=== PATIENT | female | born 1965 | race Two or more races ===

== ENCOUNTER 2017-10-02 18:59 | Emergency (ER) | payer MEDICAID, OTHER ==
[~2017-10-02] VITALS: Ht 154.9 cm; Wt 71.7 kg
[~2017-10-02 18:59] MED LIST: DOCU-94 PO; HYDR-4683 PO; IBUP800T24 PO; LISI-646 PO; METF-489 PO; METO25TA5 PO; NIFE60TA59 PO
[2017-10-02 19:56] LABS: Urine Bacteria NONE SEEN /hpf (None Seen); Urine Blood Negative /uL (Negative); Urine Budding Yeast OCCASIONAL /hpf (None Seen); Urine Mucus FEW (None Seen); Urine Specific Gravity 1.018 (1.001-1.035); Urine WBC 7 /hpf (0 - 5)
[2017-10-02 22:54] LABS: Basophils # (auto) 0.1 uL; Basophils % (auto) 1.4 % (0.0-2.0); Eosinophils # (auto) 0.1 uL; Eosinophils % (auto) 1.8 % (0.0-7.0); Hematocrit 41.6 % (36.0-46.0); Hemoglobin 14.5 g/dL (12.2-16.2); Lymphocytes # (auto) 1.6 uL; Lymphocytes % (auto) 29.3 % (10.0-50.0); Mean Corpuscular Hemoglobin 31.2 pg (28.0-32.0); Mean Corpuscular Hgb Conc. 34.8 g/dL (32.0-36.0); Mean Corpuscular Volume 89.7 fL (80.0-100.0); Monocytes # (auto) 0.5 uL; Monocytes % (auto) 8.7 % (0.0-12.0); Neutrophils # (auto) 3.2 uL; Neutrophils % (auto) 58.8 % (37.0-80.0); Nucleated Red Blood Cells % 0.1 %; Platelet Count (auto) 219 10^3/uL (140-450); Red Blood Cells 4.64 10^6/uL (4.0-5.20); Red Cell Distribution Width 12.5 % (11.8-14.3); White Blood Cell 5.5 10^3/uL (4.4-10.8)
[2017-10-02 23:07] LABS: Albumin 3.2 g/dL (3.4-5.0); Calcium 9.3 mg/dL (8.5-10.1); Potassium 3.8 mmol/L (3.5-5.1)
[2017-10-02 23:09] LABS: BUN/Creatinine Ratio 23.7
[2017-10-02 23:12] LABS: Bilirubin, Total 0.4 mg/dL (0.2-1.0)
[2017-10-02] MEDS ORDERED: SODIUM CHLORIDE 0.9% 1,000 ML IV ONE (23:45)
[2017-10-02] MEDS ORDERED: InsuLIN REG 1unit/0.01ml Soln (100units/ml) IV ONE (23:45)
[2017-10-03 00:50] VITALS: BP 141/78
== END 2017-10-03 00:34 | disposition home or self-care (01) ==
LOC: ER 18:59
DX: E11.65 Type 2 diabetes mellitus with hyperglycemia (principal); R10.32 Left lower quadrant pain; E66.01 Morbid (severe) obesity due to excess calories; K21.9 Gastro-esophageal reflux disease without esophagitis; E78.5 Hyperlipidemia, unspecified; I10 Essential (primary) hypertension; Z90.710 Acquired absence of both cervix and uterus; Z79.84 Long term (current) use of oral hypoglycemic drugs; Z68.29 Body mass index [BMI] 29.0-29.9, adult; Z90.49 Acquired absence of other specified parts of digestive tract
CPT/HCPCS: 36415; 74176; 80053; 81001; 82150; 82962; 83690; 85025; 93005; 96361; 96374; 99285; J1815

== ENCOUNTER 2017-12-15 17:53 | Emergency (ER) | payer MEDICAID, OTHER ==
[~2017-12-15] VITALS: Ht 157.5 cm; Wt 65.8 kg
[2017-12-15 19:11] LABS: Basophils # (auto) 0.1 uL; Basophils % (auto) 0.6 % (0.0-2.0); Eosinophils # (auto) 0 uL; Eosinophils % (auto) 0.5 % (0.0-7.0); Hemoglobin 14.5 g/dL (12.2-16.2); Lymphocytes # (auto) 0.6 uL; Lymphocytes % (auto) 7.4 % (10.0-50.0); Mean Corpuscular Hemoglobin 30.8 pg (28.0-32.0); Mean Corpuscular Hgb Conc. 34.5 g/dL (32.0-36.0); Monocytes # (auto) 0.6 uL; Monocytes % (auto) 7.7 % (0.0-12.0); Neutrophils # (auto) 6.9 uL; Neutrophils % (auto) 83.8 % (37.0-80.0); Nucleated Red Blood Cells % 0.2 %; Platelet Count (auto) 235 10^3/uL (140-450); Red Blood Cells 4.71 10^6/uL (4.0-5.20); White Blood Cell 8.2 10^3/uL (4.4-10.8)
[2017-12-15 19:34] LABS: Urine Bacteria MANY /hpf (None Seen); Urine Blood Negative /uL (Negative); Urine Specific Gravity 1.016 (1.001-1.035); Urine WBC 5 /hpf (0 - 5)
[2017-12-15 19:38] LABS: Alanine Aminotransferase 24 U/L (13-56); Albumin 3.9 g/dL (3.4-5.0); Alkaline Phosphatase 73 U/L (45-117); Anion Gap 11 (5-15); Aspartate Aminotransferase 12 U/L (15-37); BUN/Creatinine Ratio 28.4; Bilirubin, Total 0.5 mg/dL (0.2-1.0); Blood Urea Nitrogen 33 mg/dL (7-18); Calcium 9.5 mg/dL (8.5-10.1); Carbon Dioxide 27 mmol/L (21-32); Chloride 100 mmol/L (98-107); GFR African American 63 mL/min; GFR Non-African American 52 mL/min; Glucose 234 mg/dL (74-106); Magnesium 2.1 mg/dL (1.6-2.6); Potassium 4.4 mmol/L (3.5-5.1); Sodium 138 mmol/L (136-145); Total Protein 8.3 g/dL (6.4-8.2)
[2017-12-16 05:32] VITALS: BP 119/87
== END 2017-12-16 05:52 | disposition home or self-care (01) ==
LOC: ER 17:57
DX: N20.0 Calculus of kidney (principal); E11.9 Type 2 diabetes mellitus without complications; K21.9 Gastro-esophageal reflux disease without esophagitis; E78.5 Hyperlipidemia, unspecified; I10 Essential (primary) hypertension; Z90.710 Acquired absence of both cervix and uterus
CPT/HCPCS: 36415; 74176; 80053; 81001; 83735; 84484; 85025; 93005

== ENCOUNTER 2019-01-09 00:31 | Emergency (ER) | payer MEDICAID ==
[~2019-01-09] VITALS: Ht 157.5 cm; Wt 63.7 kg
[~2019-01-09 00:31] MED LIST changes: -HYDR-4683 PO; +HYDR-4833 PO
[2019-01-09] MEDS ORDERED: cloNIDine HCL 0.1 MG TAB ONE (01:06)
[2019-01-09] MEDS ORDERED: cloNIDine HCL 0.1 MG TAB PO ONE (01:15)
[2019-01-09 02:26] LABS: Basophils # (auto) 0.1 uL; Basophils % (auto) 1.4 % (0.0-2.0); Eosinophils # (auto) 0.1 uL; Eosinophils % (auto) 1.9 % (0.0-7.0); Hemoglobin 15.2 g/dL (12.2-16.2); Lymphocytes # (auto) 1.7 uL; Mean Corpuscular Hemoglobin 30.1 pg (28.0-32.0); Mean Corpuscular Hgb Conc. 34.5 g/dL (32.0-36.0); Mean Corpuscular Volume 87.4 fL (80.0-100.0); Monocytes # (auto) 0.5 uL; Neutrophils # (auto) 2.3 uL; Neutrophils % (auto) 48.7 % (37.0-80.0); Nucleated Red Blood Cells % 0.1 %; Platelet Count (auto) 257 10^3/uL (140-450); Red Blood Cells 5.03 10^6/uL (4.0-5.20); Red Cell Distribution Width 12.7 % (11.8-14.3); White Blood Cell 4.7 10^3/uL (4.4-10.8)
[2019-01-09 02:46] LABS: Albumin 3.2 g/dL (3.4-5.0); Anion Gap 9 (5-15); Blood Urea Nitrogen 22 mg/dL (7-18); Calcium 8.8 mg/dL (8.5-10.1); Carbon Dioxide 28 mmol/L (21-32); Chloride 99 mmol/L (98-107); Glucose 285 mg/dL (74-106); Potassium 3.5 mmol/L (3.5-5.1); Sodium 136 mmol/L (136-145)
[2019-01-09 02:49] LABS: BUN/Creatinine Ratio 25.9; GFR African American 90 mL/min; GFR Non-African American 74 mL/min
[2019-01-09 02:54] LABS: INR < 0.93 (0.9-1.15); Partial Thromboplastin Time 23.1 sec (23.64-32.05)
[2019-01-09 03:02] LABS: Alanine Aminotransferase 25 U/L (13-56); Alkaline Phosphatase 114 U/L (45-117); Aspartate Aminotransferase 11 U/L (15-37); Bilirubin, Total 0.4 mg/dL (0.2-1.0); Total Protein 7.1 g/dL (6.4-8.2)
[2019-01-09] MEDS ORDERED: MORPHINE SULFATE 4 MG/ML SYR/VIAL IV ONE (04:15)
[2019-01-09] MEDS ORDERED: ONDANSETRON HCL 4 MG/2 ML VIAL IV ONE (04:15)
[2019-01-09 06:27] VITALS: BP 133/86
== END 2019-01-09 07:18 | disposition home or self-care (01) ==
LOC: ER 00:33
DX: S39.012A Strain of muscle, fascia and tendon of lower back, initial encounter (principal); M54.42 Lumbago with sciatica, left side; E11.9 Type 2 diabetes mellitus without complications; K21.9 Gastro-esophageal reflux disease without esophagitis; E78.5 Hyperlipidemia, unspecified; I10 Essential (primary) hypertension; Z90.49 Acquired absence of other specified parts of digestive tract; Z90.710 Acquired absence of both cervix and uterus; Z79.899 Other long term (current) drug therapy; Z79.84 Long term (current) use of oral hypoglycemic drugs; X58.XXXA Exposure to other specified factors, initial encounter; Y93.89 Activity, other specified; Y99.8 Other external cause status; Y92.89 Other specified places as the place of occurrence of the external cause
CPT/HCPCS: 36415; 70450; 72131; 80053; 83880; 84484; 85025; 85610; 85730; 93005; 96374; 96375; 99284; J2270; J2405

== ENCOUNTER 2019-09-15 13:02 | Inpatient (IN) | payer MEDICAID ==
[~2019-09-15] VITALS: Ht 154.9 cm; Wt 67.4 kg
[~2019-09-15 13:02] MED LIST changes: +NIFE1TAB30 PO; -NIFE60TA59 PO
[2019-09-15] MEDS ORDERED: SODIUM CHLORIDE 0.9% 1,000 ML IV ONE (13:43)
[2019-09-15] MEDS ORDERED: InsuLIN REG 1unit/0.01ml Soln (100units/ml) IV ONE (13:45)
[2019-09-15 14:14] LABS: Basophils # (auto) 0.1 10 ^3/uL (0-0.2); Basophils % (auto) 1.3 % (0.0-2.0); Eosinophils # (auto) 0.1 10 ^3/uL (0-0.8); Eosinophils % (auto) 1.3 % (0.0-7.0); Hematocrit 44.8 % (36.0-46.0); Hemoglobin 15.2 g/dL (12.2-16.2); Lymphocytes # (auto) 1.3 10 ^3/uL (0.4-5.4); Lymphocytes % (auto) 23.2 % (10.0-50.0); Mean Corpuscular Hemoglobin 29.9 pg (28.0-32.0); Mean Corpuscular Volume 87.9 fL (80.0-100.0); Monocytes # (auto) 0.4 10 ^3/uL (0-1.3); Monocytes % (auto) 6.3 % (0.0-12.0); Neutrophils # (auto) 3.8 10 ^3/uL (1.6-8.6); Neutrophils % (auto) 67.9 % (37.0-80.0); Nucleated Red Blood Cells % 0.2 %; Platelet Count (auto) 234 10^3/uL (140-450); Red Blood Cells 5.09 10^6/uL (4.0-5.20); Red Cell Distribution Width 12.4 % (11.8-14.3); White Blood Cell 5.6 10^3/uL (4.4-10.8)
[2019-09-15 14:37] LABS: Albumin 2.9 g/dL (3.4-5.0); Calcium 8.7 mg/dL (8.5-10.1); Potassium 4.1 mmol/L (3.5-5.1)
[2019-09-15 14:42] LABS: BUN/Creatinine Ratio 22.5; Bilirubin, Total 0.4 mg/dL (0.2-1.0); Total Protein 7.2 g/dL (6.4-8.2)
[2019-09-15] MEDS ORDERED: NITROGLYCERIN 0.4 MG SL TAB SL PRN (16:00)
[2019-09-15] MEDS ORDERED: DEXTROSE (50%) 50ML SYRG IV PRN (16:00)
[2019-09-15] MEDS ORDERED: MORPHINE SULF INJ 2 MG/ML SYRINGE 1ML IV PRN ×2 (16:00)
[2019-09-15] MEDS ORDERED: ONDANSETRON HCL 4 MG/2 ML VIAL IV PRN (16:00)
[2019-09-15] MEDS ORDERED: INSULIN LANTUS (GLARGINE) 1 /0.01ml (100units/ml) SC ONE (16:00)
[2019-09-15] MEDS ORDERED: LISINOPRIL 20 MG TAB PO ONE (16:00)
[2019-09-15] MEDS ORDERED: HCTZ 25 MG TAB PO ONE (16:45)
[2019-09-15] MEDS: ACCU-CHEK COMFORT CURVE STRIP VI SCH ×2 (17:10→22:08)
[2019-09-15] MEDS: InsuLIN REG 1unit/0.01ml Soln (100units/ml) SC SCH ×2 (17:10→22:16)
[2019-09-15 17:45] VITALS: BP 155/89
[2019-09-15] MEDS ORDERED: NIFEdipine ER 30 MG TAB PO ONE (19:00)
--- NOTE | 2019-09-15 19:30 | NUR ---
received report from praveen rn poc reviewed, received attenuator from family member given to pt
[2019-09-15 21:30] VITALS: BP 153/82
[2019-09-16] MEDS: INSULIN LANTUS (GLARGINE) 1 /0.01ml (100units/ml) SC SCH ×2 (00:28→22:09)
--- NOTE | 2019-09-16 01:26 | NUR ---
RESTING COMFORTABLE, CALL LIGHT WITHIN REACH
[2019-09-16 05:00] VITALS: BP 135/72
[2019-09-16] MEDS: ACCU-CHEK COMFORT CURVE STRIP VI SCH ×4 (05:17→22:09)
[2019-09-16 05:43] LABS: Basophils # (auto) 0 10 ^3/uL (0-0.2); Basophils % (auto) 0.7 % (0.0-2.0); Eosinophils # (auto) 0.1 10 ^3/uL (0-0.8); Eosinophils % (auto) 2.4 % (0.0-7.0); Hematocrit 43.3 % (36.0-46.0); Hemoglobin 14.7 g/dL (12.2-16.2); Lymphocytes # (auto) 1.6 10 ^3/uL (0.4-5.4); Lymphocytes % (auto) 29.5 % (10.0-50.0); Mean Corpuscular Hgb Conc. 34.1 g/dL (32.0-36.0); Mean Corpuscular Volume 88.1 fL (80.0-100.0); Monocytes # (auto) 0.5 10 ^3/uL (0-1.3); Monocytes % (auto) 9.5 % (0.0-12.0); Neutrophils # (auto) 3.1 10 ^3/uL (1.6-8.6); Neutrophils % (auto) 57.9 % (37.0-80.0); Nucleated Red Blood Cells % 0.4 %; Platelet Count (auto) 213 10^3/uL (140-450); Red Blood Cells 4.91 10^6/uL (4.0-5.20); Red Cell Distribution Width 12.7 % (11.8-14.3); White Blood Cell 5.4 10^3/uL (4.4-10.8)
[2019-09-16 05:54] LABS: Albumin 2.8 g/dL (3.4-5.0); Calcium 9.1 mg/dL (8.5-10.1); Potassium 3.6 mmol/L (3.5-5.1)
[2019-09-16 06:00] LABS: BUN/Creatinine Ratio 32.2; Bilirubin, Total 0.3 mg/dL (0.2-1.0); Total Protein 6.6 g/dL (6.4-8.2)
[2019-09-16] MEDS: InsuLIN REG 1unit/0.01ml Soln (100units/ml) SC SCH ×4 (06:04→22:10)
--- NOTE | 2019-09-16 06:51 | NUR ---
report given to am nurse poc reviewed
--- NOTE | 2019-09-16 08:10 | NUR ---
OPENING SHIFT NOTE: PATIENT RESTING IN BED EATING BREAKFAST. RESPIRATIONS EVEN AND UNLABORED. PATIENT UPDATED ON PLAN OF CARE. CALL LIGHT WITHIN REACH, FALL PRECAUTIONS IN PLACE. WILL CONTINUE TO MONITOR.
[2019-09-16 08:38] VITALS: BP 124/58
[2019-09-16] MEDS ORDERED: hydrALAZINE HCL 20 MG/ML VL IV PRN (10:00)
[2019-09-16] MEDS ORDERED: LISINOPRIL 20 MG TAB PO SCH (10:00)
[2019-09-16] MEDS: LISINOPRIL 20 MG TAB PO SCH (10:17)
[2019-09-16] MEDS: NIFEdipine ER 30 MG TAB PO SCH (10:19)
[2019-09-16] MEDS: HCTZ 25 MG TAB PO SCH (10:19)
[2019-09-16 13:20] VITALS: BP 134/81
[2019-09-16 16:31] VITALS: BP 132/75
--- NOTE | 2019-09-16 18:55 | NUR ---
MD MEERA MONTEZ.
--- NOTE | 2019-09-16 19:14 | NUR ---
CARE ENDORSED TO BRENDA PEPE.
[2019-09-16 22:00] VITALS: BP 133/79
[2019-09-16] MEDS ORDERED: ACETAMINOPHEN 500 MG TAB PO PRN (22:00)
[2019-09-17 05:00] VITALS: BP 130/79
[2019-09-17 06:01] LABS: Basophils # (auto) 0.1 10 ^3/uL (0-0.2); Basophils % (auto) 1.1 % (0.0-2.0); Eosinophils # (auto) 0.1 10 ^3/uL (0-0.8); Eosinophils % (auto) 2.1 % (0.0-7.0); Hematocrit 47.5 % (36.0-46.0); Hemoglobin 16.3 g/dL (12.2-16.2); Lymphocytes # (auto) 2.4 10 ^3/uL (0.4-5.4); Lymphocytes % (auto) 38.1 % (10.0-50.0); Mean Corpuscular Hemoglobin 30.4 pg (28.0-32.0); Mean Corpuscular Hgb Conc. 34.2 g/dL (32.0-36.0); Mean Corpuscular Volume 88.7 fL (80.0-100.0); Monocytes # (auto) 0.4 10 ^3/uL (0-1.3); Monocytes % (auto) 7.1 % (0.0-12.0); Neutrophils # (auto) 3.3 10 ^3/uL (1.6-8.6); Neutrophils % (auto) 51.6 % (37.0-80.0); Nucleated Red Blood Cells % 0.6 %; Platelet Count (auto) 264 10^3/uL (140-450); Red Blood Cells 5.36 10^6/uL (4.0-5.20); Red Cell Distribution Width 12.6 % (11.8-14.3); White Blood Cell 6.3 10^3/uL (4.4-10.8)
[2019-09-17 06:29] LABS: Potassium 3.7 mmol/L (3.5-5.1)
[2019-09-17 06:40] LABS: Albumin 3.1 g/dL (3.4-5.0); BUN/Creatinine Ratio 32.7; Bilirubin, Total 0.3 mg/dL (0.2-1.0); Calcium 9.5 mg/dL (8.5-10.1); Total Protein 7.5 g/dL (6.4-8.2)
[2019-09-17] MEDS: InsuLIN REG 1unit/0.01ml Soln (100units/ml) SC SCH ×4 (06:57→21:39)
[2019-09-17] MEDS: ACCU-CHEK COMFORT CURVE STRIP VI SCH ×4 (07:03→21:38)
--- NOTE | 2019-09-17 07:25 | NUR ---
opening shift note Assumed care of patient from NOC AFSHIN Ybarra. Patient is AOX4, no s/s of distress or sob noted. Bed is in lowest locked position, side rails up x2, and call light within reach. Updated patient on plan of care, patient verbalized understanding. I will continue to monitor Q1HR and PRN.
[2019-09-17 08:48] VITALS: BP 151/84
[2019-09-17] MEDS: HCTZ 25 MG TAB PO SCH (11:22)
[2019-09-17] MEDS: NIFEdipine ER 30 MG TAB PO SCH (11:23)
[2019-09-17] MEDS: LISINOPRIL 20 MG TAB PO SCH (11:23)
[2019-09-17 12:30] VITALS: BP 159/96
[2019-09-17 16:41] VITALS: BP 132/78
[2019-09-17] MEDS ORDERED: NIFEdipine ER 30 MG TAB PO ONE (17:00)
--- NOTE | 2019-09-17 19:15 | NUR ---
End of shift note Endorsed care to NOC AFSHIN Cordero. No s/s of distress noted at this time.
--- NOTE | 2019-09-17 19:30 | NUR ---
Opening Shift Note Assumed care of patient, awake and alert, latvian speaking but can understand a little Slovak. No S/S of distress/SOB or pain. Instructed on POC and to call for assist PRN, patient verbalized understanding. Safety precaution in place, call light within reach, will continue to monitor for changes Q1hr and PRN.
[2019-09-17] MEDS: INSULIN LANTUS (GLARGINE) 1 /0.01ml (100units/ml) SC SCH (21:39)
[2019-09-17 22:00] VITALS: BP 135/88
--- NOTE | 2019-09-18 01:05 | NUR ---
ROUNDING Patient sleeping at this time, respirations even and unlabored, will continue to monitor
[2019-09-18 05:00] VITALS: BP 108/74
[2019-09-18 05:25] LABS: Basophils # (auto) 0.1 10 ^3/uL (0-0.2); Basophils % (auto) 1.2 % (0.0-2.0); Eosinophils # (auto) 0.1 10 ^3/uL (0-0.8); Eosinophils % (auto) 2.4 % (0.0-7.0); Hemoglobin 15.6 g/dL (12.2-16.2); Lymphocytes # (auto) 2.3 10 ^3/uL (0.4-5.4); Lymphocytes % (auto) 40.9 % (10.0-50.0); Mean Corpuscular Hemoglobin 29.9 pg (28.0-32.0); Mean Corpuscular Volume 87.9 fL (80.0-100.0); Monocytes # (auto) 0.5 10 ^3/uL (0-1.3); Monocytes % (auto) 9.3 % (0.0-12.0); Neutrophils # (auto) 2.6 10 ^3/uL (1.6-8.6); Neutrophils % (auto) 46.2 % (37.0-80.0); Nucleated Red Blood Cells % 0.1 %; Platelet Count (auto) 229 10^3/uL (140-450); Red Blood Cells 5.23 10^6/uL (4.0-5.20); Red Cell Distribution Width 12.8 % (11.8-14.3); White Blood Cell 5.6 10^3/uL (4.4-10.8)
[2019-09-18 05:41] LABS: Albumin 2.8 g/dL (3.4-5.0); Calcium 8.8 mg/dL (8.5-10.1); Potassium 3.9 mmol/L (3.5-5.1)
[2019-09-18 05:46] LABS: BUN/Creatinine Ratio 35.5; Bilirubin, Total 0.4 mg/dL (0.2-1.0); Total Protein 6.8 g/dL (6.4-8.2)
[2019-09-18] MEDS: ACCU-CHEK COMFORT CURVE STRIP VI SCH ×3 (06:16→17:00)
[2019-09-18] MEDS: InsuLIN REG 1unit/0.01ml Soln (100units/ml) SC SCH ×3 (06:16→17:00)
--- NOTE | 2019-09-18 07:46 | NUR ---
Opening Shift Note Assumed care of patient, awake and alert. No S/S of distress/SOB or pain. Instructed on POC and to call for assist PRN. Bed at lowest locked position and call light within reach. Will continue to monitor for changes Q1hr and PRN.
[2019-09-18 08:00] VITALS: BP 117/71
[2019-09-18 09:00] VITALS: BP 117/71
[2019-09-18] MEDS ORDERED: NIFEdipine ER 30 MG TAB PO SCH (10:00)
[2019-09-18] MEDS: HCTZ 25 MG TAB PO SCH (12:22)
[2019-09-18] MEDS: LISINOPRIL 20 MG TAB PO SCH (12:23)
--- NOTE | 2019-09-18 12:41 | NUR ---
DR. TINSLEY, AT BEDSIDE. Addendum: 09/18/19 at 1244 by Oumou Rivera RN PER DR. TINSLEY, PATIENT CLEARED FROM CARDIOLOGY'S PERSPECTIVE. PATIENT TO CONTINUE BLOOD PRESSURE MEDICATIONS FROM HOSPITAL .
[2019-09-18 13:00] VITALS: BP 138/85
--- NOTE | 2019-09-18 13:12 | NUR ---
JAMES ELIAS REGARDING DISCHARGE ORDERS. AWAITING CALL BACK. Addendum: 09/18/19 at 1345 by Oumou Rivera RN MD. Boss, called back. will be in later.
[2019-09-18 16:49] VITALS: BP 124/81
--- NOTE | 2019-09-18 18:45 | NUR ---
MD ROUNDS Dr. Boss at bedside. Per MD patient will be discharged today.
[2019-09-18 19:12] VITALS: BP 124/81
--- NOTE | 2019-09-18 19:19 | NUR ---
IV removal Patient requesting iv to be discontinued. IV DC'd with clean sterile technique, catheter fully intact. Pressure dressing applied to site. Patient tolerated well.
--- NOTE | 2019-09-18 19:19 | NUR ---
Tele box collected and returned tele monitor room.
--- NOTE | 2019-09-18 19:20 | NUR ---
closing note Patient is comfortably resting in bed, no s/s of distress/sob noted/stated. Bed at lowest locked position and call light within reach. care endorsed to NOC AFSHIN De La Cruz.
--- NOTE | 2019-09-18 20:35 | NUR ---
Discharge instructions given as ordered. Encourage to follow up with PMD as instructed. All questions and concerns addressed. Patient verbalized understanding. Medication reconciliation form completed and copy given to patient. Home medications held in Pharmacy returned to patient, and needed vaccines given. IV removed with catheter intact, pressure dressing applied. Telemetry unit returned to ICU. Patient taken to vehicle via wheelchair with all personal belongings, accompanied by staff. No distress noted at time of departure.
== END 2019-09-18 20:30 | disposition home or self-care (01) | DRG 199 ==
LOC: ER 13:02 → TELE 13:03 → TELE-WESTW 17:49
PROVIDERS: ADMIT Internal Medicine; ATTEND Internal Medicine
DX: I16.9 Hypertensive crisis, unspecified (principal); E11.65 Type 2 diabetes mellitus with hyperglycemia; I15.8 Other secondary hypertension; E78.5 Hyperlipidemia, unspecified; K21.9 Gastro-esophageal reflux disease without esophagitis; I10 Essential (primary) hypertension; Z83.3 Family history of diabetes mellitus; Z90.710 Acquired absence of both cervix and uterus; Z91.19 Patient's noncompliance with other medical treatment and regimen; Z82.49 Family history of ischemic heart disease and other diseases of the circulatory system; Z80.9 Family history of malignant neoplasm, unspecified; Z90.49 Acquired absence of other specified parts of digestive tract; I16.1 Hypertensive emergency; T50.2X6A Underdosing of carbonic-anhydrase inhibitors, benzothiadiazides and other diuretics, initial encounter; T38.3X6A Underdosing of insulin and oral hypoglycemic [antidiabetic] drugs, initial encounter; Z79.84 Long term (current) use of oral hypoglycemic drugs; Z79.4 Long term (current) use of insulin; Z91.138 Patient's unintentional underdosing of medication regimen for other reason
CPT/HCPCS: 36415; 71045; 80053; 82962; 85025; 93005; 93306; G0378; J1815

== ENCOUNTER 2020-04-07 21:44 | Inpatient (IN) | payer MEDICAID ==
[~2020-04-07] VITALS: Ht 152.4 cm; Wt 61.7 kg
[2020-04-07] MEDS ORDERED: LABETALOL HCL 5 MG/ML 4ML SYRINGE IV ONE (23:15)
[2020-04-07] MEDS ORDERED: SODIUM CHLORIDE 0.9% 1,000 ML IV ONE (23:15)
[2020-04-08 00:07] LABS: Hematocrit 37.7 % (36.0-46.0); Mean Corpuscular Hemoglobin 29.8 pg (28.0-32.0); Mean Corpuscular Hgb Conc. 34.4 g/dL (32.0-36.0); Mean Corpuscular Volume 86.7 fL (80.0-100.0); Platelet Count (auto) 552 10^3/uL (140-450); Red Blood Cells 4.35 10^6/uL (4.0-5.20); Red Cell Distribution Width 12.1 % (11.8-14.3); White Blood Cell 5.7 10^3/uL (4.4-10.8)
[2020-04-08 00:10] LABS: Band Neutrophils % (manual) 0; Basophils % (manual) 0 (0.0-2.0); Blast Cells 0; Metamyelocytes % 0; Myelocytes % 0; Promyelocytes % 0; Reactive Lymphocytes 0
[2020-04-08 00:11] LABS: INR 0.97 (0.9-1.15); Partial Thromboplastin Time 22.5 sec (23.0-31.2)
[2020-04-08 00:15] LABS: Albumin 2.5 g/dL (3.4-5.0); Anion Gap 6 (5-15); Blood Urea Nitrogen 22 mg/dL (7-18); Calcium 8.7 mg/dL (8.5-10.1); Carbon Dioxide 27 mmol/L (21-32); Chloride 100 mmol/L (98-107); Glucose 314 mg/dL (74-106); Magnesium 2.1 mg/dL (1.6-2.6); Potassium 3.9 mmol/L (3.5-5.1); Sodium 133 mmol/L (136-145)
[2020-04-08 00:22] LABS: Alanine Aminotransferase 26 U/L (13-56); Alkaline Phosphatase 105 U/L (45-117); Aspartate Aminotransferase 13 U/L (15-37); BUN/Creatinine Ratio 23.2; Bilirubin, Total 0.2 mg/dL (0.2-1.0); GFR African American 79 mL/min; GFR Non-African American 65 mL/min; Total Protein 6.8 g/dL (6.4-8.2)
[2020-04-08] MEDS ORDERED: ONDANSETRON HCL 4 MG/2 ML VIAL IV PRN (01:30)
[2020-04-08] MEDS ORDERED: MORPHINE SULF INJ 2 MG/ML SYRINGE 1ML IV PRN (01:30)
[2020-04-08] MEDS ORDERED: ACETAMINOPHEN 500 MG TAB PO PRN (01:30)
[2020-04-08 03:20] LABS: Eosinophils % (manual) 1 (0-7); Lymphocytes % (manual) 30 (10.0-50.0); Monocytes % (manual) 11 (0-12)
[2020-04-08 06:11] LABS: Hemoglobin 12.6 g/dL (12.2-16.2); Red Cell Distribution Width 12.4 % (11.8-14.3); White Blood Cell 5.5 10^3/uL (4.4-10.8)
[2020-04-08 06:13] LABS: Hematocrit 36.6 % (36.0-46.0); Mean Corpuscular Hemoglobin 29.6 pg (28.0-32.0); Mean Corpuscular Hgb Conc. 34.5 g/dL (32.0-36.0); Mean Corpuscular Volume 85.7 fL (80.0-100.0); Platelet Count (auto) 538 10^3/uL (140-450); Red Blood Cells 4.27 10^6/uL (4.0-5.20)
[2020-04-08 06:34] LABS: Potassium 3.6 mmol/L (3.5-5.1)
[2020-04-08 06:47] LABS: Albumin 2.5 g/dL (3.4-5.0); BUN/Creatinine Ratio 22.7; Bilirubin, Total 0.2 mg/dL (0.2-1.0); Calcium 8.9 mg/dL (8.5-10.1); Total Protein 6.5 g/dL (6.4-8.2)
[2020-04-08 06:50] LABS: Band Neutrophils % (manual) 0; Basophils % (manual) 0 (0.0-2.0); Blast Cells 0; Metamyelocytes % 0; Myelocytes % 0; Promyelocytes % 0; Reactive Lymphocytes 0
[2020-04-08 07:30] LABS: Eosinophils % (manual) 2 (0-7); Lymphocytes % (manual) 50 (10.0-50.0); Monocytes % (manual) 5 (0-12)
[2020-04-08] MEDS ORDERED: INSU1INJ19 SC (10:27)
[2020-04-08] MEDS: ASPirin 81 mg TAB PO SCH (15:15)
[2020-04-08] MEDS ORDERED: hydrALAZINE HCL 20 MG/ML VL IV PRN (17:30)
[2020-04-08] MEDS: HYDROcodone-ACET 5/325MG TAB PO PRN ×2 (17:39→23:39)
[2020-04-08] MEDS ORDERED: LORazepam 2MG/ML-1ML VIAL IV PRN (19:30)
[2020-04-08 21:28] LABS: Cholesterol 157 mg/dL (< 200)
[2020-04-08 21:30] LABS: HDL Cholesterol 37 mg/dL (40-59); LDL Cholesterol 79 mg/dL (< 100); Triglycerides 277 mg/dL (< 150)
[2020-04-08] MEDS: DOCUSATE SOD 100 MG CAP PO SCH (23:40)
[2020-04-08] MEDS: ATORVASTATIN 20 MG TAB PO SCH (23:40)
[2020-04-09 06:21] LABS: Basophils # (auto) 0 10 ^3/uL (0-0.2); Basophils % (auto) 0.7 % (0.0-2.0); Eosinophils # (auto) 0.1 10 ^3/uL (0-0.8); Hemoglobin 12.3 g/dL (12.2-16.2); Lymphocytes # (auto) 1.7 10 ^3/uL (0.4-5.4); Mean Corpuscular Hemoglobin 29.9 pg (28.0-32.0); Mean Corpuscular Hgb Conc. 34.2 g/dL (32.0-36.0); Mean Corpuscular Volume 87.3 fL (80.0-100.0); Monocytes # (auto) 0.6 10 ^3/uL (0-1.3); Monocytes % (auto) 13.9 % (0.0-12.0); Neutrophils % (auto) 45.4 % (37.0-80.0); Nucleated Red Blood Cells % 0.5 %; Platelet Count (auto) 512 10^3/uL (140-450); Red Blood Cells 4.12 10^6/uL (4.0-5.20); Red Cell Distribution Width 12.4 % (11.8-14.3); White Blood Cell 4.4 10^3/uL (4.4-10.8)
[2020-04-09 06:33] LABS: Albumin 2.4 g/dL (3.4-5.0); Calcium 8.8 mg/dL (8.5-10.1); Magnesium 2.4 mg/dL (1.6-2.6); Potassium 4.2 mmol/L (3.5-5.1)
[2020-04-09 06:36] LABS: BUN/Creatinine Ratio 22.1; Bilirubin, Total 0.2 mg/dL (0.2-1.0); Total Protein 6.2 g/dL (6.4-8.2)
[2020-04-09 08:50] VITALS: BP 162/92
--- NOTE | 2020-04-09 08:50 | NUR ---
Patient arrived on unit via wheeled chair. vitals stable, breathing easy and unlabored. Right sided weakness noted, production control scheduler weak to arm and unable to keep right leg for more than 10 seconds when elevated. Vision intact with limited peripheral vision. Noted right facial droop. safety measures in place with call light and bed lowered.
[2020-04-09] MEDS: DOCUSATE SOD 100 MG CAP PO SCH ×2 (15:30→22:55)
[2020-04-09] MEDS: metFORMIN HYDROCHLORIDE 500 MG TAB PO SCH (15:30)
[2020-04-09] MEDS: ASPirin 81 mg TAB PO SCH (15:31)
[2020-04-09] MEDS: METOPROLOL TARTRATE 25 MG TAB PO SCH (15:32)
[2020-04-09] MEDS: NIFEdipine ER 30 MG TAB PO SCH (15:33)
[2020-04-09] MEDS: LISINOPRIL 20 MG TAB PO SCH (15:34)
[2020-04-09] MEDS: INSULIN LANTUS (GLARGINE) 1 /0.01ml (100units/ml) SC SCH (15:37)
--- NOTE | 2020-04-09 19:30 | NUR ---
Opening Shift Note Assumed care of patient, awake and alert. No S/S of distress/SOB or pain. Instructed on POC and to call for assist PRN, patient verbalized understanding. Bed in safety position, call light within reach, will continue to monitor for changes Q1hr and PRN.
[2020-04-09 20:00] VITALS: BP 118/73
[2020-04-09] MEDS: ATORVASTATIN 20 MG TAB PO SCH (22:55)
[2020-04-10 06:00] VITALS: BP 129/81
[2020-04-10 07:31] LABS: Amphetamine Screen, Urine NEGATIVE (NEGATIVE); Barbiturate Scree,Urine NEGATIVE (NEGATIVE); Benzodiazephine Screen, Urine NEGATIVE (NEGATIVE); Cannabinoid Screen, Urine NEGATIVE (NEGATIVE); Cocaine Screen, Urine NEGATIVE (NEGATIVE); Opiate Scree,Urine NEGATIVE (NEGATIVE); Phencyclidine Screen, Urine NEGATIVE (NEGATIVE)
[2020-04-10 07:36] LABS: Alcohol, Urine < 3.0 mg/dL (0-10)
[2020-04-10 08:00] VITALS: BP 162/92
--- NOTE | 2020-04-10 08:00 | NUR ---
ASSESSMENT NOTE PT IS ALERT ORIENTED X4, RESTING IN BED COMFORTABLY, ABLE TO SELF REPOSITION AND VERBALIS HER DEMANDS, PAIN 0/10 AT THIS TIME, DENIES NUMBNESS OR HEADACHE, MIL RT SIDED WEAKNESS, ROOM AIR, NO ACTIVE COUGH NOTED, CALL LIGHT WITHIN REACH
[2020-04-10] MEDS: metFORMIN HYDROCHLORIDE 500 MG TAB PO SCH (09:44)
[2020-04-10] MEDS: ASPirin 81 mg TAB PO SCH (09:45)
[2020-04-10] MEDS: METOPROLOL TARTRATE 25 MG TAB PO SCH (09:45)
[2020-04-10] MEDS: DOCUSATE SOD 100 MG CAP PO SCH ×2 (09:45→21:37)
[2020-04-10] MEDS: NIFEdipine ER 30 MG TAB PO SCH (09:46)
[2020-04-10] MEDS: LISINOPRIL 20 MG TAB PO SCH (09:46)
[2020-04-10] MEDS: INSULIN LANTUS (GLARGINE) 1 /0.01ml (100units/ml) SC SCH (09:47)
--- NOTE | 2020-04-10 14:56 | NUR ---
Assessment Patient is a 54 year old female, patient was unable to speak with SW, SW called daughter Cj. Per Cj, patient is alert and oriented prior to being admitted to [facility]. Per Cj, patient cognitive abilities are intact. Per Cj, patient could do all ADL's and ambulate independently. Per Cj, patient is a diabetic. Per Cj, patient is on SSI, patient lives with daughter and son. Per Cj, patient is expected to return home post discharge. Per Cj, her children will provide transportation post discharge. Per Cj, requesting Advance Directive. Discharge planning: Patient will return home post discharge, patient will follow up care with her PCP post discharge. Patient has all diabetic supplies to resume care post discharge. DEVEN will provide Advance Directive prior to discharge. There are no other discharge needs to address at the moment. Addendum: 04/10/20 at 1500 by APRIL MYERS SS Amended: Links added.
--- NOTE | 2020-04-10 16:45 | NUR ---
ARSENIO QUINTERO IS HERE, FOLLOWING UP ON PT, INFORM ME THAT SHE SPOKE WITH PATIENT'S DAUGHTER AND LET HER KNOW THAT HER MOM WILL BE DISCHARGE HOME TOMORROW
[2020-04-10] MEDS: DOXYCYCLINE 100MG/250ML 250 ML IV SCH (17:06)
--- NOTE | 2020-04-10 18:47 | NUR ---
PT CONTINUE STABLE, TOLERATED MEALS WELL, CONTINUE MONITORING
[2020-04-10 20:00] VITALS: BP 140/77
--- NOTE | 2020-04-10 20:00 | NUR ---
Patient went down for Head CT
[2020-04-10] MEDS: ATORVASTATIN 20 MG TAB PO SCH (21:37)
[2020-04-10 22:00] VITALS: BP 140/77
[2020-04-11] MEDS: DOXYCYCLINE 100MG/250ML 250 ML IV SCH ×2 (04:58→16:30)
[2020-04-11 05:52] VITALS: BP 139/78
[2020-04-11 08:15] VITALS: BP 130/81
--- NOTE | 2020-04-11 08:15 | NUR ---
Opening Shift Note Received report from technology director RN Nella, Assumed care of patient, awake and alert. Patient on room air, No S/S of distress/SOB or pain. Bed in lowest position, call light within reach. Instructed on POC and to call for assist PRN, will continue to monitor for changes Q1hr and PRN.
[2020-04-11 08:38] VITALS: BP 130/81
[2020-04-11] MEDS: metFORMIN HYDROCHLORIDE 500 MG TAB PO SCH (08:39)
[2020-04-11] MEDS: ASPirin 81 mg TAB PO SCH (09:54)
[2020-04-11] MEDS: DOCUSATE SOD 100 MG CAP PO SCH ×2 (09:54→22:00)
[2020-04-11] MEDS: ZINC SULFATE 220mg CAP or TAB PO SCH (09:54)
[2020-04-11] MEDS: NIFEdipine ER 30 MG TAB PO SCH (09:55)
[2020-04-11] MEDS: ASCORBIC ACID 500 MG TAB PO SCH (09:55)
[2020-04-11] MEDS: METOPROLOL TARTRATE 25 MG TAB PO SCH (09:55)
[2020-04-11] MEDS: LISINOPRIL 20 MG TAB PO SCH (09:56)
[2020-04-11] MEDS: CHOLECALCIFEROL (VITD3) 1,000UNIT=25mCg TAB PO SCH (09:56)
[2020-04-11] MEDS: INSULIN LANTUS (GLARGINE) 1 /0.01ml (100units/ml) SC SCH (09:57)
--- NOTE | 2020-04-11 11:02 | NUR ---
Nutrition Assessment Est energy needs 1203-6860 kcal (25-27 kcal/kg BW 64.2kg) Est protein needs 51-64g (0.8-1g/kg BW 64.2kg) Will monitor and reassess prn. Addendum: 04/11/20 at [address] Amended: Links added.
[2020-04-11 13:15] VITALS: BP 130/71
[2020-04-11 16:45] VITALS: BP 127/81
--- NOTE | 2020-04-11 19:20 | NUR ---
Opening Shift Note Assumed care of patient, awake and alert. No S/S of distress/SOB or pain. Patient on room air SPO2 96-97% Instructed on POC and to call for assistance PRN, will continue to monitor for changes Q1hr and PRN. Safety precautions on place bed is in lowest position and locked, bed rails 2x.
[2020-04-11 22:00] VITALS: BP 153/92
[2020-04-11] MEDS: ATORVASTATIN 20 MG TAB PO SCH (22:00)
[2020-04-12 05:00] VITALS: BP 137/75
[2020-04-12] MEDS: DOXYCYCLINE 100MG/250ML 250 ML IV SCH ×2 (05:05→16:30)
--- NOTE | 2020-04-12 08:02 | NUR ---
Opening Shift Note Received report from night custodian RN, Assumed care of patient, awake and alert. Patient on room air, No S/S of distress/SOB or pain. Patients arm swollen with complains of discomfort, patient educated that IV will have to be removed and a new one will be inserted due to having an antibiotic due soon, patient verbalized understanding. Instructed on POC and to call for assist PRN, will continue to monitor for changes Q1hr and PRN.
[2020-04-12 08:56] VITALS: BP 153/83
[2020-04-12] MEDS: metFORMIN HYDROCHLORIDE 500 MG TAB PO SCH (09:00)
[2020-04-12] MEDS: ASPirin 81 mg TAB PO SCH (09:30)
[2020-04-12] MEDS: ZINC SULFATE 220mg CAP or TAB PO SCH (09:30)
[2020-04-12] MEDS: DOCUSATE SOD 100 MG CAP PO SCH (09:30)
--- NOTE | 2020-04-12 10:15 | NUR ---
MD GARCIA AT BEDSIDE NEW ORDERS RECEIVED. STOP AMIODARONE DRIP AND START AMIODARONE PO. Addendum: 04/12/20 at 1310 by SHANNON STERN RN RN WRONG PATIENT.
[2020-04-12] MEDS: METOPROLOL TARTRATE 25 MG TAB PO SCH (10:19)
[2020-04-12] MEDS: NIFEdipine ER 30 MG TAB PO SCH (10:19)
[2020-04-12] MEDS: ASCORBIC ACID 500 MG TAB PO SCH (10:20)
[2020-04-12] MEDS: CHOLECALCIFEROL (VITD3) 1,000UNIT=25mCg TAB PO SCH (10:20)
[2020-04-12] MEDS: LISINOPRIL 20 MG TAB PO SCH (10:20)
[2020-04-12] MEDS: INSULIN LANTUS (GLARGINE) 1 /0.01ml (100units/ml) SC SCH (10:21)
[2020-04-12 12:56] VITALS: BP 156/85
--- NOTE | 2020-04-12 16:36 | NUR ---
DEVEN spoke with Rubi RN, to verify discharge status of patient, SW informed Rubi PEPE, that Home health services were faxed and accepted with [facility]. Per Nick from [facility] has accepted patient for services. Per Carleen from [facility], has approved services for patient.
--- NOTE | 2020-04-12 16:40 | NUR ---
spoke to [employer] social service agency director, patient home safety eval done, patient just has to be cleared by MD Claire.
--- NOTE | 2020-04-12 16:40 | NUR ---
SPOKE TO MD PRIEST PER ZAYDA PATIENT IS GOOD TO DC HOME. CLEARED BY ZAYDA.
[2020-04-12 17:21] VITALS: BP 124/76
--- NOTE | 2020-04-12 19:05 | NUR ---
MD PRIEST ORDERS FOR LIPITOR, ASPIRIN GIVEN TO COMPLETE DISCHARGE. ORDERS IN CHART.
[2020-04-12 19:31] VITALS: BP 155/110
--- NOTE | 2020-04-12 20:20 | NUR ---
Patient Discharged Discharged with aftercare instructions per MD. Patient wheeled down and picked up by family on a motor vehicle. No s/s of distress or SOB noted. All questions and concerns answered. IV DC'd with sterile technique, catheter fully intact. Pressure dressing applied to site. Patient tolerated procedure well. Telemetry box sent to ICU.
== END 2020-04-12 20:20 | disposition home health service (06) | DRG 45 ==
LOC: ER 21:45 → OVERFLOW 04-08 01:58 → TELE-WESTW 04-09 08:39
PROVIDERS: ADMIT Internal Medicine; ATTEND Internal Medicine
DX: I63.9 Cerebral infarction, unspecified (principal); I10 Essential (primary) hypertension; E11.40 Type 2 diabetes mellitus with diabetic neuropathy, unspecified; E78.5 Hyperlipidemia, unspecified; F17.200 Nicotine dependence, unspecified, uncomplicated; E66.9 Obesity, unspecified; Z79.82 Long term (current) use of aspirin; Z79.899 Other long term (current) drug therapy; Z82.3 Family history of stroke; Z83.3 Family history of diabetes mellitus; Z90.710 Acquired absence of both cervix and uterus; Z90.49 Acquired absence of other specified parts of digestive tract; G81.91 Hemiplegia, unspecified affecting right dominant side; I16.0 Hypertensive urgency; U07.1 COVID-19; Z68.27 Body mass index [BMI] 27.0-27.9, adult
CPT/HCPCS: 36415; 70450; 71045; 80053; 80061; 80307; 82962; 83735; 84484; 85007; 85025; 85027; 85379; 85610; 85730; 86141; 87426; 93005; 93306; 93886; 96360; G0378; J1815; J3490

== ENCOUNTER 2020-12-14 21:35 | Emergency (ER) | payer MEDICAID ==
[~2020-12-14] VITALS: Ht 160 cm; Wt 61.7 kg
[~2020-12-14 21:35] MED LIST changes: -IBUP800T24 PO; +IBUP800T27 PO; +INSU1INJ19 SC; -LISI-646 PO; +LISI20TA28 PO
[2020-12-14] MEDS ORDERED: cloNIDine HCL 0.1 MG TAB ONE (21:38)
[2020-12-15] MEDS ORDERED: ONDANSETRON ODT 4 MG TAB PO ONE (02:30)
[2020-12-15] MEDS ORDERED: SUMAtriptan SUCCINATE 6 MG/0.5 ML VL SC ONE (02:30)
[2020-12-15] MEDS ORDERED: cloNIDine HCL 0.1 MG TAB PO ONE (02:30)
[2020-12-15 04:27] VITALS: BP 125/74
== END 2020-12-15 05:42 | disposition home or self-care (01) ==
LOC: ER 21:36
DX: G43.909 Migraine, unspecified, not intractable, without status migrainosus (principal); I10 Essential (primary) hypertension; E11.9 Type 2 diabetes mellitus without complications; K21.9 Gastro-esophageal reflux disease without esophagitis; E78.00 Pure hypercholesterolemia, unspecified; Z79.84 Long term (current) use of oral hypoglycemic drugs; Z79.82 Long term (current) use of aspirin; Z79.899 Other long term (current) drug therapy; Z90.49 Acquired absence of other specified parts of digestive tract; Z98.890 Other specified postprocedural states; Z90.710 Acquired absence of both cervix and uterus
CPT/HCPCS: 93005; 96372; 99283; J3030; Q0162

== ENCOUNTER 2020-12-19 19:03 | Inpatient (IN) | payer MEDICAID ==
[~2020-12-19] VITALS: Ht 154.9 cm; Wt 63.0 kg
[2020-12-19 19:57] LABS: Basophils # (auto) 0.1 10 ^3/uL (0-0.2); Basophils % (auto) 0.9 % (0.0-2.0); Eosinophils # (auto) 0.1 10 ^3/uL (0-0.8); Eosinophils % (auto) 1.2 % (0.0-7.0); Hematocrit 43.9 % (36.0-46.0); Hemoglobin 15.2 g/dL (12.2-16.2); Lymphocytes % (auto) 32.6 % (10.0-50.0); Mean Corpuscular Hemoglobin 29.7 pg (28.0-32.0); Mean Corpuscular Hgb Conc. 34.6 g/dL (32.0-36.0); Mean Corpuscular Volume 86.1 fL (80.0-100.0); Monocytes # (auto) 0.5 10 ^3/uL (0-1.3); Monocytes % (auto) 7.7 % (0.0-12.0); Neutrophils # (auto) 3.5 10 ^3/uL (1.6-8.6); Neutrophils % (auto) 57.6 % (37.0-80.0); Nucleated Red Blood Cells % 0.1 %; Red Cell Distribution Width 12.8 % (11.8-14.3)
[2020-12-19 20:11] LABS: INR 0.97 (0.9-1.15); Partial Thromboplastin Time 21.9 sec (23.6-33.0)
[2020-12-19 20:12] LABS: Alanine Aminotransferase 27 U/L (13-56); Albumin 3.4 g/dL (3.4-5.0); Anion Gap 12 (5-15); Aspartate Aminotransferase 24 U/L (15-37); BUN/Creatinine Ratio 28.6; Blood Urea Nitrogen 40 mg/dL (7-18); Calcium 9.2 mg/dL (8.5-10.1); Carbon Dioxide 26 mmol/L (21-32); Chloride 97 mmol/L (98-107); GFR African American 50 mL/min; GFR Non-African American 41 mL/min; Glucose 285 mg/dL (74-106); Magnesium 2.1 mg/dL (1.6-2.6); Potassium 3.3 mmol/L (3.5-5.1); Sodium 135 mmol/L (136-145)
[2020-12-19 20:18] LABS: Alkaline Phosphatase 103 U/L (45-117); Bilirubin, Total 0.4 mg/dL (0.2-1.0); Total Protein 8.4 g/dL (6.4-8.2)
[2020-12-19] MEDS ORDERED: SODIUM CHLORIDE 0.9% 1,000 ML IV ONE (21:15)
[2020-12-19] MEDS ORDERED: IOHEXOL 350 MG/ML 100ML IJ ONE (21:50)
[2020-12-19 23:49] LABS: Urine Bacteria FEW /hpf (None Seen); Urine Blood Negative /uL (Negative); Urine Hyaline Cast FEW /lpf (0 - 2); Urine WBC 7 /hpf (0 - 5)
[2020-12-19 23:55] LABS: Amphetamine Screen, Urine NEGATIVE (NEGATIVE); Barbiturate Scree,Urine NEGATIVE (NEGATIVE); Benzodiazephine Screen, Urine NEGATIVE (NEGATIVE); Cannabinoid Screen, Urine NEGATIVE (NEGATIVE); Cocaine Screen, Urine NEGATIVE (NEGATIVE); Opiate Scree,Urine NEGATIVE (NEGATIVE); Phencyclidine Screen, Urine NEGATIVE (NEGATIVE)
[2020-12-20] MEDS ORDERED: NITROGLYCERIN 0.4 MG SL TAB SL PRN (02:00)
[2020-12-20] MEDS ORDERED: MORPHINE SULFATE INJECTION 2 MG/ML SYRG IV PRN ×2 (02:00)
[2020-12-20 05:54] LABS: Basophils # (auto) 0.1 10 ^3/uL (0-0.2); Basophils % (auto) 1.7 % (0.0-2.0); Eosinophils # (auto) 0.1 10 ^3/uL (0-0.8); Hematocrit 42.7 % (36.0-46.0); Lymphocytes # (auto) 1.6 10 ^3/uL (0.4-5.4); Lymphocytes % (auto) 25.6 % (10.0-50.0); Mean Corpuscular Hemoglobin 30.1 pg (28.0-32.0); Mean Corpuscular Hgb Conc. 35.1 g/dL (32.0-36.0); Mean Corpuscular Volume 85.9 fL (80.0-100.0); Monocytes # (auto) 0.6 10 ^3/uL (0-1.3); Monocytes % (auto) 8.9 % (0.0-12.0); Neutrophils # (auto) 3.9 10 ^3/uL (1.6-8.6); Neutrophils % (auto) 61.8 % (37.0-80.0); Nucleated Red Blood Cells % 0.1 %; Red Blood Cells 4.97 10^6/uL (4.0-5.20); Red Cell Distribution Width 12.6 % (11.8-14.3); White Blood Cell 6.3 10^3/uL (4.4-10.8)
[2020-12-20 06:10] LABS: Potassium 3.4 mmol/L (3.5-5.1)
[2020-12-20 06:21] LABS: Albumin 3.1 g/dL (3.4-5.0); Bilirubin, Total 0.5 mg/dL (0.2-1.0); Calcium 9.2 mg/dL (8.5-10.1); Total Protein 7.6 g/dL (6.4-8.2)
[2020-12-20] MEDS: metFORMIN HYDROCHLORIDE 500 MG TAB PO SCH ×2 (08:00→18:00)
[2020-12-20] MEDS: NIFEdipine ER 30 MG TAB PO SCH (10:00)
[2020-12-20] MEDS: ASPirin 81 mg TAB PO SCH (10:14)
[2020-12-20] MEDS: LISINOPRIL 20 MG TAB PO SCH (10:15)
[2020-12-20] MEDS: INSULIN LANTUS (GLARGINE) 1 /0.01ml (100units/ml) SC SCH (10:15)
[2020-12-20] MEDS: METOPROLOL TARTRATE 25 MG TAB PO SCH (10:15)
[2020-12-20] MEDS: ENOXAPARIN SOD 40 MG/0.4 ML SYRINGE SC SCH (10:18)
[2020-12-20] MEDS ORDERED: POTASSIUM CHL 20 Meq TABLET PO ONE (12:45)
[2020-12-20 14:21] LABS: Cholesterol 222 mg/dL (< 200); HDL Cholesterol 38 mg/dL (40-59); Triglycerides 419 mg/dL (< 150)
[2020-12-20] MEDS ORDERED: NIFEdipine ER 30 MG TAB PO ONE (21:00)
[2020-12-20] MEDS: HYDROcodone-ACET 5/325MG TAB PO PRN (22:04)
[2020-12-20] MEDS: ATORVASTATIN 20 MG TAB PO SCH (22:45)
[2020-12-21 05:13] LABS: Basophils # (auto) 0.1 10 ^3/uL (0-0.2); Basophils % (auto) 1.2 % (0.0-2.0); Eosinophils # (auto) 0.1 10 ^3/uL (0-0.8); Hematocrit 40.8 % (36.0-46.0); Hemoglobin 14.1 g/dL (12.2-16.2); Lymphocytes # (auto) 1.5 10 ^3/uL (0.4-5.4); Lymphocytes % (auto) 24.7 % (10.0-50.0); Mean Corpuscular Hemoglobin 30.2 pg (28.0-32.0); Mean Corpuscular Hgb Conc. 34.5 g/dL (32.0-36.0); Mean Corpuscular Volume 87.3 fL (80.0-100.0); Monocytes # (auto) 0.6 10 ^3/uL (0-1.3); Monocytes % (auto) 9.5 % (0.0-12.0); Neutrophils # (auto) 3.8 10 ^3/uL (1.6-8.6); Neutrophils % (auto) 62.6 % (37.0-80.0); Nucleated Red Blood Cells % 0.1 %; Red Blood Cells 4.67 10^6/uL (4.0-5.20); Red Cell Distribution Width 12.2 % (11.8-14.3)
[2020-12-21 05:25] LABS: Albumin 2.9 g/dL (3.4-5.0); Potassium 4.2 mmol/L (3.5-5.1)
[2020-12-21 05:32] LABS: BUN/Creatinine Ratio 29.7; Bilirubin, Total 0.4 mg/dL (0.2-1.0); Total Protein 7.1 g/dL (6.4-8.2)
[2020-12-21] MEDS: metFORMIN HYDROCHLORIDE 500 MG TAB PO SCH ×2 (08:00→18:00)
[2020-12-21] MEDS: METOPROLOL TARTRATE 25 MG TAB PO SCH (10:00)
[2020-12-21] MEDS: ASPirin 81 mg TAB PO SCH (10:16)
[2020-12-21] MEDS: LISINOPRIL 20 MG TAB PO SCH (10:16)
[2020-12-21] MEDS: ENOXAPARIN SOD 40 MG/0.4 ML SYRINGE SC SCH (10:16)
[2020-12-21] MEDS: NIFEdipine ER 30 MG TAB PO SCH (10:16)
[2020-12-21] MEDS: INSULIN LANTUS (GLARGINE) 1 /0.01ml (100units/ml) SC SCH (10:20)
[2020-12-21 20:30] VITALS: BP 128/24
[2020-12-21 22:00] VITALS: BP 128/74
[2020-12-21] MEDS: ATORVASTATIN 20 MG TAB PO SCH (23:00)
[2020-12-21] MEDS: ONDANSETRON HCL 4 MG/2 ML VIAL IV PRN (23:00)
[2020-12-22 05:00] VITALS: BP 131/71
[2020-12-22 06:08] LABS: Basophils # (auto) 0 10 ^3/uL (0-0.2); Basophils % (auto) 0.7 % (0.0-2.0); Eosinophils # (auto) 0.2 10 ^3/uL (0-0.8); Eosinophils % (auto) 3.2 % (0.0-7.0); Hematocrit 40.4 % (36.0-46.0); Hemoglobin 13.9 g/dL (12.2-16.2); Lymphocytes # (auto) 1.6 10 ^3/uL (0.4-5.4); Lymphocytes % (auto) 29.9 % (10.0-50.0); Mean Corpuscular Hemoglobin 29.9 pg (28.0-32.0); Mean Corpuscular Hgb Conc. 34.4 g/dL (32.0-36.0); Monocytes # (auto) 0.5 10 ^3/uL (0-1.3); Monocytes % (auto) 9.2 % (0.0-12.0); Nucleated Red Blood Cells % 0.1 %; Red Blood Cells 4.64 10^6/uL (4.0-5.20); Red Cell Distribution Width 12.7 % (11.8-14.3); White Blood Cell 5.3 10^3/uL (4.4-10.8)
[2020-12-22 06:31] LABS: Potassium 4.3 mmol/L (3.5-5.1)
[2020-12-22 06:41] LABS: Albumin 2.8 g/dL (3.4-5.0); BUN/Creatinine Ratio 31.1; Bilirubin, Total 0.4 mg/dL (0.2-1.0); Calcium 9.4 mg/dL (8.5-10.1); Total Protein 6.9 g/dL (6.4-8.2)
[2020-12-22] MEDS: metFORMIN HYDROCHLORIDE 500 MG TAB PO SCH ×3 (08:00→16:08)
[2020-12-22 09:00] VITALS: BP 121/68
[2020-12-22] MEDS: ENOXAPARIN SOD 40 MG/0.4 ML SYRINGE SC SCH (09:09)
[2020-12-22] MEDS: METOPROLOL TARTRATE 25 MG TAB PO SCH (09:10)
[2020-12-22] MEDS: LISINOPRIL 20 MG TAB PO SCH (09:10)
[2020-12-22] MEDS: NIFEdipine ER 30 MG TAB PO SCH (09:11)
[2020-12-22] MEDS: ASPirin 81 mg TAB PO SCH (09:11)
[2020-12-22] MEDS: INSULIN LANTUS (GLARGINE) 1 /0.01ml (100units/ml) SC SCH (09:21)
[2020-12-22] MEDS ORDERED: DEXTROSE (50%) 50ML SYRG IV PRN (11:00)
[2020-12-22] MEDS: InsuLIN REG 1unit/0.01ml Soln (100units/ml) SC SCH ×3 (11:51→21:49)
[2020-12-22] MEDS: ACCU-CHEK COMFORT CURVE STRIP VI SCH ×3 (11:51→21:45)
[2020-12-22 13:00] VITALS: BP 124/72
[2020-12-22 17:00] VITALS: BP 108/60
[2020-12-22 20:00] VITALS: BP 130/75
[2020-12-22] MEDS: ATORVASTATIN 20 MG TAB PO SCH (21:45)
[2020-12-22] MEDS: HYDROcodone-ACET 5/325MG TAB PO PRN (21:46)
[2020-12-22 22:00] VITALS: BP 130/75
[2020-12-23 05:00] VITALS: BP 127/72
[2020-12-23] MEDS: ACCU-CHEK COMFORT CURVE STRIP VI SCH ×4 (06:37→21:32)
[2020-12-23] MEDS: InsuLIN REG 1unit/0.01ml Soln (100units/ml) SC SCH ×4 (06:39→21:46)
[2020-12-23] MEDS: ASPirin 81 mg TAB PO SCH (08:17)
[2020-12-23] MEDS: ENOXAPARIN SOD 40 MG/0.4 ML SYRINGE SC SCH (08:18)
[2020-12-23] MEDS: INSULIN LANTUS (GLARGINE) 1 /0.01ml (100units/ml) SC SCH (08:19)
[2020-12-23] MEDS: metFORMIN HYDROCHLORIDE 500 MG TAB PO SCH ×2 (08:28→15:45)
[2020-12-23] MEDS: ONDANSETRON HCL 4 MG/2 ML VIAL IV PRN (08:50)
[2020-12-23 09:00] VITALS: BP 143/83
[2020-12-23] MEDS: METOPROLOL TARTRATE 25 MG TAB PO SCH (09:21)
[2020-12-23 09:22] LABS: Basophils # (auto) 0.1 10 ^3/uL (0-0.2); Basophils % (auto) 1.1 % (0.0-2.0); Eosinophils # (auto) 0.1 10 ^3/uL (0-0.8); Hematocrit 38.7 % (36.0-46.0); Hemoglobin 13.5 g/dL (12.2-16.2); Lymphocytes # (auto) 1.2 10 ^3/uL (0.4-5.4); Lymphocytes % (auto) 23.8 % (10.0-50.0); Mean Corpuscular Hemoglobin 30.3 pg (28.0-32.0); Mean Corpuscular Hgb Conc. 34.9 g/dL (32.0-36.0); Mean Corpuscular Volume 86.9 fL (80.0-100.0); Monocytes # (auto) 0.4 10 ^3/uL (0-1.3); Monocytes % (auto) 7.4 % (0.0-12.0); Neutrophils # (auto) 3.2 10 ^3/uL (1.6-8.6); Neutrophils % (auto) 65.7 % (37.0-80.0); Red Blood Cells 4.45 10^6/uL (4.0-5.20); Red Cell Distribution Width 12.3 % (11.8-14.3); White Blood Cell 4.9 10^3/uL (4.4-10.8)
[2020-12-23] MEDS: NIFEdipine ER 30 MG TAB PO SCH (09:22)
[2020-12-23] MEDS: LISINOPRIL 20 MG TAB PO SCH (09:22)
[2020-12-23 09:38] LABS: Albumin 2.8 g/dL (3.4-5.0); Calcium 9.4 mg/dL (8.5-10.1); Potassium 4.2 mmol/L (3.5-5.1)
[2020-12-23 09:48] LABS: BUN/Creatinine Ratio 27.4; Bilirubin, Total 0.4 mg/dL (0.2-1.0); Total Protein 6.9 g/dL (6.4-8.2)
[2020-12-23 13:00] VITALS: BP 139/88
[2020-12-23 17:00] VITALS: BP 116/69
[2020-12-23] MEDS: ATORVASTATIN 20 MG TAB PO SCH (21:32)
[2020-12-23 22:00] VITALS: BP 124/74
[2020-12-24 05:00] VITALS: BP 159/85
[2020-12-24 06:16] LABS: Basophils # (auto) 0.1 10 ^3/uL (0-0.2); Basophils % (auto) 1.1 % (0.0-2.0); Eosinophils # (auto) 0.2 10 ^3/uL (0-0.8); Eosinophils % (auto) 3.6 % (0.0-7.0); Hematocrit 37.5 % (36.0-46.0); Hemoglobin 13.1 g/dL (12.2-16.2); Lymphocytes # (auto) 1.9 10 ^3/uL (0.4-5.4); Lymphocytes % (auto) 38.2 % (10.0-50.0); Mean Corpuscular Hemoglobin 30.4 pg (28.0-32.0); Mean Corpuscular Hgb Conc. 34.9 g/dL (32.0-36.0); Mean Corpuscular Volume 87.1 fL (80.0-100.0); Monocytes # (auto) 0.4 10 ^3/uL (0-1.3); Monocytes % (auto) 8.7 % (0.0-12.0); Neutrophils # (auto) 2.5 10 ^3/uL (1.6-8.6); Neutrophils % (auto) 48.4 % (37.0-80.0); Nucleated Red Blood Cells % 0.1 %; Red Cell Distribution Width 12.2 % (11.8-14.3); White Blood Cell 5.1 10^3/uL (4.4-10.8)
[2020-12-24] MEDS: ACCU-CHEK COMFORT CURVE STRIP VI SCH ×4 (06:25→21:43)
[2020-12-24] MEDS: InsuLIN REG 1unit/0.01ml Soln (100units/ml) SC SCH ×4 (06:28→21:43)
[2020-12-24 06:48] LABS: Albumin 2.6 g/dL (3.4-5.0); Calcium 8.8 mg/dL (8.5-10.1)
[2020-12-24 06:51] LABS: Bilirubin, Total 0.4 mg/dL (0.2-1.0); Total Protein 6.7 g/dL (6.4-8.2)
[2020-12-24] MEDS: INSULIN LANTUS (GLARGINE) 1 /0.01ml (100units/ml) SC SCH (08:23)
[2020-12-24] MEDS: ENOXAPARIN SOD 40 MG/0.4 ML SYRINGE SC SCH (08:35)
[2020-12-24] MEDS: metFORMIN HYDROCHLORIDE 500 MG TAB PO SCH ×2 (08:35→17:27)
[2020-12-24] MEDS: ASPirin 81 mg TAB PO SCH (08:35)
[2020-12-24] MEDS: METOPROLOL TARTRATE 25 MG TAB PO SCH (09:26)
[2020-12-24] MEDS: NIFEdipine ER 30 MG TAB PO SCH (09:26)
[2020-12-24] MEDS: LISINOPRIL 20 MG TAB PO SCH (09:27)
[2020-12-24] MEDS: HYDROcodone-ACET 5/325MG TAB PO PRN ×2 (09:32→21:43)
[2020-12-24 13:42] VITALS: BP 130/74
[2020-12-24 17:46] VITALS: BP 129/75
[2020-12-24] MEDS: ATORVASTATIN 20 MG TAB PO SCH (21:39)
[2020-12-24 22:00] VITALS: BP 135/75
[2020-12-25 05:00] VITALS: BP 112/71
[2020-12-25 05:44] LABS: Basophils # (auto) 0 10 ^3/uL (0-0.2); Basophils % (auto) 0.7 % (0.0-2.0); Eosinophils # (auto) 0.2 10 ^3/uL (0-0.8); Eosinophils % (auto) 3.1 % (0.0-7.0); Hematocrit 38.2 % (36.0-46.0); Hemoglobin 13.3 g/dL (12.2-16.2); Lymphocytes # (auto) 1.9 10 ^3/uL (0.4-5.4); Lymphocytes % (auto) 36.3 % (10.0-50.0); Mean Corpuscular Hemoglobin 30.1 pg (28.0-32.0); Mean Corpuscular Hgb Conc. 34.7 g/dL (32.0-36.0); Mean Corpuscular Volume 86.6 fL (80.0-100.0); Monocytes # (auto) 0.6 10 ^3/uL (0-1.3); Monocytes % (auto) 10.4 % (0.0-12.0); Neutrophils # (auto) 2.6 10 ^3/uL (1.6-8.6); Neutrophils % (auto) 49.5 % (37.0-80.0); Nucleated Red Blood Cells % 0.1 %; Red Blood Cells 4.41 10^6/uL (4.0-5.20); Red Cell Distribution Width 12.6 % (11.8-14.3); White Blood Cell 5.3 10^3/uL (4.4-10.8)
[2020-12-25] MEDS: ACCU-CHEK COMFORT CURVE STRIP VI SCH ×3 (06:02→16:42)
[2020-12-25 06:05] LABS: Potassium 4.1 mmol/L (3.5-5.1)
[2020-12-25] MEDS: InsuLIN REG 1unit/0.01ml Soln (100units/ml) SC SCH ×3 (06:05→16:42)
[2020-12-25 06:12] LABS: Albumin 2.8 g/dL (3.4-5.0); Bilirubin, Total 0.3 mg/dL (0.2-1.0); Total Protein 6.9 g/dL (6.4-8.2)
[2020-12-25] MEDS: metFORMIN HYDROCHLORIDE 500 MG TAB PO SCH (08:00)
[2020-12-25 09:00] VITALS: BP 142/79
[2020-12-25] MEDS: LISINOPRIL 20 MG TAB PO SCH (10:55)
[2020-12-25] MEDS: NIFEdipine ER 30 MG TAB PO SCH (10:56)
[2020-12-25] MEDS: ASPirin 81 mg TAB PO SCH (10:56)
[2020-12-25] MEDS: ENOXAPARIN SOD 40 MG/0.4 ML SYRINGE SC SCH (10:59)
[2020-12-25] MEDS: METOPROLOL TARTRATE 25 MG TAB PO SCH (10:59)
[2020-12-25] MEDS: INSULIN LANTUS (GLARGINE) 1 /0.01ml (100units/ml) SC SCH (11:08)
[2020-12-25 13:00] VITALS: BP 162/92
[2020-12-25 16:52] VITALS: BP 152/83
== END 2020-12-25 17:03 | disposition home or self-care (01) | DRG 45 ==
LOC: ER 19:03 → TELE 12-20 01:52 → TELE-WESTW 12-21 20:31
PROVIDERS: ADMIT Internal Medicine; ATTEND Internal Medicine
DX: I63.532 Cerebral infarction due to unspecified occlusion or stenosis of left posterior cerebral artery (principal); N17.9 Acute kidney failure, unspecified; G81.91 Hemiplegia, unspecified affecting right dominant side; I16.1 Hypertensive emergency; E11.9 Type 2 diabetes mellitus without complications; E78.5 Hyperlipidemia, unspecified; K21.9 Gastro-esophageal reflux disease without esophagitis; H57.02 Anisocoria; H54.7 Unspecified visual loss; Z20.822 Contact with and (suspected) exposure to COVID-19; I16.0 Hypertensive urgency; Z79.82 Long term (current) use of aspirin; Z79.84 Long term (current) use of oral hypoglycemic drugs; Z79.899 Other long term (current) drug therapy; Z82.3 Family history of stroke; Z83.3 Family history of diabetes mellitus; Z86.73 Personal history of transient ischemic attack (TIA), and cerebral infarction without residual deficits; Z90.49 Acquired absence of other specified parts of digestive tract; Z90.710 Acquired absence of both cervix and uterus; Z91.14 Patient's other noncompliance with medication regimen
CPT/HCPCS: 36415; 70450; 70496; 70498; 70551; 71045; 71250; 80053; 80061; 80307; 81001; 82962; 83735; 84484; 85025; 85610; 85730; 87426; 93005; 93306; 96360; 97110; 97116; 97163; 97530; G0378; J1815; J2405

== ENCOUNTER 2022-06-07 14:54 | Emergency (ER) | payer MEDICAID ==
[~2022-06-07] VITALS: Ht 149.9 cm; Wt 64.0 kg
[2022-06-07] MEDS ORDERED: LISINOPRIL 20 MG TAB PO ONE (15:30)
[2022-06-07 15:54] LABS: Basophils # (auto) 0 10 ^3/uL (0-0.2); Basophils % (auto) 0.6 % (0.0-2.0); Eosinophils # (auto) 0.1 10 ^3/uL (0-0.8); Eosinophils % (auto) 1.8 % (0.0-7.0); Hematocrit 37.7 % (36.0-46.0); Hemoglobin 12.8 g/dL (12.2-16.2); Lymphocytes % (auto) 18.5 % (10.0-50.0); Mean Corpuscular Hemoglobin 28.6 pg (28.0-32.0); Mean Corpuscular Hgb Conc. 33.9 g/dL (32.0-36.0); Mean Corpuscular Volume 84.3 fL (80.0-100.0); Monocytes # (auto) 0.6 10 ^3/uL (0-1.3); Monocytes % (auto) 10.2 % (0.0-12.0); Neutrophils # (auto) 3.8 10 ^3/uL (1.6-8.6); Neutrophils % (auto) 68.9 % (37.0-80.0); Nucleated Red Blood Cells % 0.1 %; Red Blood Cells 4.47 10^6/uL (4.0-5.20); Red Cell Distribution Width 13.9 % (11.8-14.3); White Blood Cell 5.5 10^3/uL (4.4-10.8)
[2022-06-07 15:58] LABS: Albumin 2.8 g/dL (3.4-5.0); Calcium 8.5 mg/dL (8.5-10.1); Potassium 3.8 mmol/L (3.5-5.1)
[2022-06-07 16:00] LABS: BUN/Creatinine Ratio 23.2
[2022-06-07 16:03] LABS: Bilirubin, Total 0.3 mg/dL (0.2-1.0); Total Protein 6.5 g/dL (6.4-8.2)
[2022-06-08] MEDS ORDERED: MECLIZINE HCL 25 MG TAB PO ONE (07:45)
[2022-06-08 11:30] VITALS: BP 167/80
== END 2022-06-08 11:33 | disposition home or self-care (01) ==
LOC: ER 14:54
DX: I16.0 Hypertensive urgency (principal); I10 Essential (primary) hypertension; E11.65 Type 2 diabetes mellitus with hyperglycemia; E78.5 Hyperlipidemia, unspecified; Z86.73 Personal history of transient ischemic attack (TIA), and cerebral infarction without residual deficits; Z90.49 Acquired absence of other specified parts of digestive tract; Z90.710 Acquired absence of both cervix and uterus
CPT/HCPCS: 36415; 70450; 71045; 80053; 82962; 84484; 85025; 93005

== ENCOUNTER 2023-09-22 20:51 | Emergency (ER) | payer MEDICAID ==
[~2023-09-22] VITALS: Ht 160 cm; Wt 65.9 kg
[~2023-09-22 20:51] MED LIST changes: +IBUP-1456 PO; -IBUP800T27 PO; -LISI20TA28 PO; +LISI20TA56 PO
[2023-09-22] MEDS: cloNIDine HCL 0.1 MG TAB PO ONE (21:27)
[2023-09-22] MEDS: HYDROcodone-ACET 5/325MG TAB PO ONE (21:27)
[2023-09-22] MEDS: ONDANSETRON ODT 4 MG TAB PO ONE (21:27)
[2023-09-22] MEDS ORDERED: ACE3T PO (23:40)
[2023-09-23 00:03] VITALS: BP 114/68; PULSE 71; RESP 16; O2SAT 99
== END 2023-09-23 00:35 | disposition home or self-care (01) ==
LOC: ER 20:51
DX: S82.092A Other fracture of left patella, initial encounter for closed fracture (principal); I10 Essential (primary) hypertension; E11.9 Type 2 diabetes mellitus without complications; E78.5 Hyperlipidemia, unspecified; K21.9 Gastro-esophageal reflux disease without esophagitis; Z86.73 Personal history of transient ischemic attack (TIA), and cerebral infarction without residual deficits; Z98.890 Other specified postprocedural states; Z79.899 Other long term (current) drug therapy; W01.0XXA Fall on same level from slipping, tripping and stumbling without subsequent striking against object, initial encounter; Y93.89 Activity, other specified; Y92.89 Other specified places as the place of occurrence of the external cause; Y99.8 Other external cause status
CPT/HCPCS: 29505; 73562; 99284; Q0162

== ENCOUNTER 2024-07-27 15:30 | Inpatient (IN) | payer MEDICAID ==
[~2024-07-27] VITALS: Ht 162.6 cm; Wt 65.0 kg
[~2024-07-27 15:30] MED LIST changes: +ACE3T PO
[2024-07-27 16:00] VITALS: PULSE 100; RESP 14; O2SAT 97
--- NOTE | 2024-07-27 16:04 | ED.PDOC ---
History of present illness HPI Comments 58 YEAR OLD FEMALE PRESENTS TO THE ED VIA EMS WITH A CHIEF COMPLAINT OF HEADACHE ONSET FEW DAYS. PER EMS, PATIENT WENT TO URGENT CARE DUE TO EXPERIENCING HEADACHE FOR THE PAST FEW DAYS, BP WAS GLUCOSE WERE ELEVATED, 911 WAS CALLED, PATIENT WAS GIVEN 5 UNITS INSULIN, 0.1 CLONIDINE PO. EMS STATES PATIENT WAS H YPERTENSIVE, 245/126, BG READ "HIGH." UPON ED ARRIVAL PATIENT STATES SHE HAD NOT TAKEN INSULIN FOR THE PAST 4 MONTHS. SHE HAS BEEN EXPERIENCING HEADACHE, CHEST PAIN, GENERALIZED WEAKNESS, FATIGUE, CONFUSION, INCREASED URINATION, DIZZINESS. BP UPON ED ARRIVAL WAS 245/152. PMHx CVA W/ RT SIDED DEFICITS, HTN, GERD, HLD, DM. NO OTHER SYMPTOMS OR MODIFYING FACTORS PRESENT AT THIS TIME. Time Seen by MD: 15:45 Primary Care Provider: GABO History of present illness: Medications, Allergies Allergies: Coded Allergies: NO KNOWN ALLERGIES (Unverified , 07/16/14) Home Meds Active Scripts Acetaminophen W/ Codeine (Tylenol W/Cod #3) 1 Tab Tb, 1 TAB PO QIDP, #10 TAB 0 Refills Prov:LALY ÁLVAREZ 09/22/23 Reported Medications Insulin Glargine (Basaglar Kwikpen) 100 Unit/Ml Inj, 10 UNIT SC DAILY, INJ 04/08/20 Ibuprofen (Ibuprofen) 800 Mg Tab, 1 TAB PO TID, #90 TAB 1 Refill 02/10/15 Lisinopril (Lisinopril) 20 Mg Tab, 10 MG PO DAILY 02/07/15 Nifedipine (Nifedipine Er) 60 Mg Tab, 60 MG PO DAILY, TAB 02/07/15 Metoprolol Tartrate (Metoprolol Tartrate) 25 Mg Tab, 25 MG PO DAILY 02/07/15 Docusate Sodium (Colace) 100 Mg Cap, 100 MG PO BID NEW PRESCRIPTION 01/07/15 Hydrocodone-Acetaminophen ([place] 5/325MG) 1 Tab Tb, 1 TAB PO Q4HP PRN for PAIN, #60 TAB NEW PRESCRIPTION 01/07/15 Metformin Hydrochloride (METFORMIN HCL ER) 500 Mg Tab, 1 TAB PO DAILY 12/31/14 Information Source: Patient, Emergency Med Personnel Mode of Arrival: EMS Timing: Days Duration: Since onset Prehospital treatment: None [place]: Confusion Symptoms: Confusion History of: Diabetes, Insulin use, CVA Associated signs and symptoms: Chest Pain, Headache Past Medical History PAST MEDICAL HISTORY: CVA, DM, GERD, High Lipids, HTN Surgical History: Cholecystectomy, , Hysterectomy SHOW HOST/HOSTESS History: No Pertinent SHOW HOST/HOSTESS History Family History Family History: No family hx of Cancer, No family hx of Heart pinky, Family hx of DM Social History Smoker: Non-Smoker Alcohol: Denies ETOH Use Drugs: Denies Drug Use Lives In: Home Constitutional: reports: fatigue, weakness, others (Confusion); denies: chills, diaphoresis, fever, malaise, sweats EENTM: denies: blurred vision, double vision, ear bleeding, ear discharge, ear drainage, ear pain, ear ringing, eye pain, eye redness, hearing loss, mouth pain , mouth swelling, nasal discharge, nose bleeding, nose congestion, nose pain, photophobia, tearing, throat pain, throat swelling, voice changes, others Respiratory: denies: cough, hemoptysis, orthopnea, SOB at rest, shortness of breath, SOB with excertion, stridor, wheezing, others Cardiovascular: reports: chest pain; denies: dizzy spells, diaphoresis, Dyspnea on exertion, edema, irregular heart beat, left arm pain, lightheadedness, palpitations, PND, syncope, others Gastrointestinal: denies: abdomen distended, abdominal pain, blood streaked bowels, constipated, diarrhea, dysphagia, difficulty swallowing, hematemesis, melena, nausea, poor appetite, poor fluid intake, rectal bleeding, rectal pain, vomiting, others Genitourinary: reports: frequency; denies: abnormal vagina bleeding, burning, dyspareunia, dysuria, flank pain, hematuria, incontinence, pain, , vagina discharge, urgency, others Neurological: reports: dizziness, headache, weakness; denies: fainting, left sided numbness, left sided weakness, numbness, paresthesia, pre-existing defic it, right sided numbness, right sided weakness, seizure, speech problems, tingling, tremors, others Musculoskeletal: denies: back pain, gout, joint pain, joint swelling, muscle pain, muscle stiffness, neck pain, others Integumetry: denies: bruises, change in color, change in hair/nails, dryness, laceration, lesions, lumps, rash, wounds, others Allergic/Immunocompromised: denies: Difficulty Healing, Frequent Infections, Hives, Itching, others Hematologic/Lymphatic: denies: anemia, blood clots, easy bleeding, easy bruising, swollen glands, others Endocrine: reports: excessive urination; denies: excessive hunger, excessive sweating, excessive thirst, flushing, intolerance to cold, intolerance to heat, unexplained weight gain, unexplained weight loss, others Psychiatric: denies: anxiety, bipolar disorder, depression, hopeless, panic disorder, schizophrenia, sleepless, suicidal, others All Other Systems: Reviewed and Negative Physical Exam General Appearance: No Apparent Distress, Normal HEENT: Normal ENT Inspection, Pharynx Normal, TMs Normal Neck: Full Range of Motion, Non-Tender, Normal, Normal Inspection Respiratory: Chest Non-Tender, Lungs Clear, No Accessory Muscle Use, No Respiratory Distress, Normal Breath Sounds Cardiovascular: No Edema, No JVD, No Murmur, No Gallop, Normal Peripheral Pulses, Regular Rate/Rhythm Breast Exam: Deferred Gastrointestinal: No Organomegaly, Non Tender, No Pulsatile Mass, Normal Bowel Sounds, Soft Genitalia: Deferred Pelvic: Deferred Rectal: Deferred Extremities: No calf tenderness, Normal capillary refill, Normal inspection, Normal range of motion, Non-tender, No pedal edema Musculoskeletal : Apperance: Normal Neurologic: Alert, sql server dba II-XII nml as Tested, No Motor Deficits, Normal Affect, Normal Mood, No Sensory Deficits Cerebellar Function: Normal Reflexes: Normal Skin: Dry, Normal Color, Warm Lymphatic: No Adenopathy Was a procedure done? Was a procedure done?: No Differential Diagnosis (DM) Differential Diagnosis: Diabetic Coma, DKA, Electrolyte Abnormality, Hyperglycemia, Other (CVA, hypertensive crisis) X-Ray, Labs, Meds, VS Vital Signs Date Time Temp Pulse Resp B/P (MAP) Pulse Ox O2 Delivery O2 Flow Rate FiO2 07/27/24 17:26 107 14 177/84 (115) 100 07/27/24 16:48 105 14 193/104 (133) 99 07/27/24 16:32 245/152 07/27/24 16:00 98.5 100 14 245/152 (183) 97 98.5 07/27/24 16:00 100 14 97 Room Air* 0 21 07/27/24 15:45 98.5 100 14 245/152 (183) 97 98.5 Lab Test 07/27/24 16:52 4/3/25 16:10 07/27/24 15:57 Range/Units Troponin I High Sensitivity 15 18 </=34 ng/L Urine Color Colorless Yellow Urine Clarity Clear Clear Urine pH 7.0 5.0-9.0 Urine Specific [place] 1.014 1.001-1.035 Urine Protein 2+ H Negative Urine Ketones Negative Negative Urine Blood Negative Negative /uL Urine Nitrite Negative Negative Urine Bilirubin Negative Negative Urine Urobilinogen Normal Negative mg/dL Urine Leukocyte Esterase Negative Negative /uL Urine RBC <1 0 - 4 /hpf Urine Microscopic WBC 1 0-5 /HPF Urine Squamous Epithelial Cells None seen <5 /hpf Urine Bacteria None seen None Seen /hpf Urine Glucose 4+ H Normal mg/dL White Blood Count 6.0 4.4-10.8 10^3/uL Red Blood Count 4.45 4.0-5.20 10^6/uL Hemoglobin 13.1 12.2-16.2 g/dL Hematocrit 39.1 36.0-46.0 % Mean Corpuscular Volume 88.0 80.0-100.0 fL Mean Corpuscular Hemoglobin 29.5 28.0-32.0 pg Mean Corpuscular Hemoglobin Concent 33.6 32.0-36.0 g/dL Red Cell Distribution Width 13.0 11.8-14.3 % Platelet Count 271 140-450 10^3/uL Mean Platelet Volume 6.7 L 6.9-10.8 fL Neutrophils (%) (Auto) 77.4 37.0-80.0 % Lymphocytes (%) (Auto) 16.3 10.0-50.0 % Monocytes (%) (Auto) 5.0 0.0-12.0 % Eosinophils (%) (Auto) 0.5 0.0-7.0 % Basophils (%) (Auto) 0.8 0.0-2.0 % Neutrophils # (Auto) 4.6 1.6-8.6 10 ^3/uL Lymphocytes # (Auto) 1.0 0.4-5.4 10 ^3/uL Monocytes # (Auto) 0.3 0-1.3 10 ^3/uL Eosinophils # (Auto) 0 0-0.8 10 ^3/uL Basophils # (Auto) 0 0-0.2 10 ^3/uL Nucleated Red Blood Cells 0.0 % Sodium Level 132 L 136-145 mmol/L Potassium Level 4.2 3.5-5.1 mmol/L Chloride Level 97 L 98-107 mmol/L Carbon Dioxide Level 28 20-31 mmol/L Anion Gap 7 5-15 Blood Urea Nitrogen 38 H 9-23 mg/dL Creatinine 2.30 H 0.550-1.02 mg/dL Glomerular Filtration Rate Calc 24 >90 mL/min BUN/Creatinine Ratio 16.5 10.0-20.0 Serum Glucose 692 *H 74-106 mg/dL Calcium Level 9.1 8.7-10.4 mg/dL Total Bilirubin 0.3 0.2-1.0 mg/dL Aspartate Amino Transferase (AST) 11 L 13-40 U/L Alanine Aminotransferase (ALT) 16 7-40 U/L Alkaline Phosphatase 188 H 46-116 U/L Total Protein 6.6 5.7-8.2 g/dL Albumin 3.7 3.2-4.8 g/dL Current Medications Medications (Trade) Dose Ordered Sig/Gina Route Start Time Stop Time Status Last Admin Hydralazine HCl (Apresoline Injection) 15 mg ONCE ONCE IV 07/27/24 16:30 07/27/24 16:31 DC 07/27/24 16:32 Insulin Human Regular (InsuLIN R) 10 units ONCE ONCE IV 07/27/24 17:15 07/27/24 17:16 DC 07/27/24 17:21 [place] [id number] Ph: [phone] DIAGNOSTIC IMAGING Diagnostic Imaging Report : [id number] Signed PATIENT: VERN TAPIAYANIQUECCT: [id number] UNIT: [id number] : 1965 LOC: ER ROOM / BED: / AGE / SEX: 58 / F ADM STATUS: REG ER SERVICE [id number] ORDERING PHYSICIAN: DIPIKA LAY PROCEDURE(s): CXR1 - CHEST XRAY 1 VIEW REASON: cp ORDER NUMBER(s): [id number], ACCESSION NUMBER(s): [id number] CHEST RADIOGRAPH Indication: cp Technique: Single frontal view of the chest was obtained Comparison: CHEST PORTABLE on DOS: 06/07/22, CXRP on DOS: 06/07/22 FINDINGS: Lines and Tubes: None Lungs: No focal consolidation. Pleura: No effusion. No pneumothorax. Cardiomediastinal contours: Unremarkable Bones: No acute osseous abnormality. IMPRESSION: 1. No acute cardiopulmonary disease. ATED BY: VIVIANE CALDWELL Jr., DO DICTATED DATE/TIME: 07/27/241620 SIGNED BY: VIVIANE CALDWELL Jr., SIGNED DATE/TIME: 07/27/24 162 CC: X-Ray, Labs, Meds, VS Comment Patient will be admitted for hypertensive urgency, diabetes type 2, Patient states she was not taking her medications over the last four months. Blood pressure was managed with hydralazine 15 mg Patient given 10 units insulin IV Time of 1ST Reevaluation: 16:15 Reevaluation 1ST: Unchanged Patient Education/Counseling: Diagnosis, Treatment, Prognosis, Need For Follow Up Family Education/Counseling: No Family Present Departure 1 Departure Time of Disposition: 18:16 Impression: Primary Impression: Diabetes mellitus Qualified Codes: E11.69 - Type 2 diabetes mellitus with other specified complication Additional Impression: Hypertension Qualified Codes: I10 - Essential (primary) hypertension Disposition: 09 ADMITTED INPATIENT Condition: Stable Critical Care Note Critical Care Time?: No Stability Stability form required: No Heart Score Heart Score: Heart Score Response (Comments) Value History Slightly Suspicious 0 EKG Normal 0 Age 45-64 1 Risk Factors 1 or 2 risk factors 1 Troponin Normal limit 0 Total 2 I personally scribed for DIPIKA LAY FACULTY PHYSICIAN ([email or web address]) on 07/27/24 at 16:04. Electronically submitted by Radha Oleary ([email or web address]). I personally scribed for DIPIKA LAY FACULTY PHYSICIAN ([email or web address]) on 07/27/24 at 16:39. Electronically submitted by Radha Oleary ([email or web address]). DIPIKA LAY FACULTY PHYSICIAN Jul 27, 2024 16:04
[2024-07-27 16:11] LABS: Basophils # (auto) 0 10 ^3/uL (0-0.2); Basophils % (auto) 0.8 % (0.0-2.0); Eosinophils # (auto) 0 10 ^3/uL (0-0.8); Eosinophils % (auto) 0.5 % (0.0-7.0); Hematocrit 39.1 % (36.0-46.0); Hemoglobin 13.1 g/dL (12.2-16.2); Lymphocytes % (auto) 16.3 % (10.0-50.0); Mean Corpuscular Hemoglobin 29.5 pg (28.0-32.0); Mean Corpuscular Hgb Conc. 33.6 g/dL (32.0-36.0); Monocytes # (auto) 0.3 10 ^3/uL (0-1.3); Neutrophils # (auto) 4.6 10 ^3/uL (1.6-8.6); Neutrophils % (auto) 77.4 % (37.0-80.0); Platelet Count (auto) 271 10^3/uL (140-450); Red Blood Cells 4.45 10^6/uL (4.0-5.20)
--- NOTE | 2024-07-27 16:23 | DVH ---
CHEST RADIOGRAPH Indication: cp Technique: Single frontal view of the chest was obtained Comparison: CHEST PORTABLE on DOS: 06/07/22, CXRP on DOS: 06/07/22 FINDINGS: Lines and Tubes: None Lungs: No focal consolidation. Pleura: No effusion. No pneumothorax. Cardiomediastinal contours: Unremarkable Bones: No acute osseous abnormality. IMPRESSION: 1. No acute cardiopulmonary disease.
[2024-07-27 16:24] LABS: Urine Bacteria None Seen /hpf (None Seen)
[2024-07-27 16:30] LABS: Alanine Aminotransferase 16 U/L (7-40); Albumin 3.7 g/dL (3.2-4.8); Anion Gap 7 (5-15); BUN/Creatinine Ratio 16.5 (10.0-20.0); Calcium 9.1 mg/dL (8.7-10.4); Carbon Dioxide 28 mmol/L (20-31); Potassium 4.2 mmol/L (3.5-5.1); Total Protein 6.6 g/dL (5.7-8.2)
[2024-07-27] MEDS: hydrALAZINE HCL 20 MG/ML VL IV ONE (16:32)
[2024-07-27 16:34] LABS: Urine Blood Negative /uL (Negative); Urine Clarity Clear (Clear); Urine Color Colorless (Yellow); Urine Protein, UAD 2+ (Negative); Urine Specific Gravity 1.014 (1.001-1.035); Urine Squamous Epithelial Cell None Seen /hpf (<5); Urine Urobilinogen Normal (Negative); Urine WBC 1 /HPF (0-5)
[2024-07-27 16:39] LABS: Bilirubin, Total 0.3 mg/dL (0.2-1.0); Chloride 97 mmol/L (98-107); Sodium 132 mmol/L (136-145)
[2024-07-27 16:40] LABS: Alkaline Phosphatase 188 U/L (46-116); Aspartate Aminotransferase 11 U/L (13-40); Blood Urea Nitrogen 38 mg/dL (9-23)
[2024-07-27 16:41] LABS: Glucose 692 mg/dL (74-106)
[2024-07-27] MEDS: InsuLIN REG 1unit/0.01ml Soln (100units/ml) IV ONE (17:21)
[2024-07-27 19:30] VITALS: O2SAT 99
[2024-07-27] MEDS: dilTIAZem 25 MG/5 ML VIAL IV ONE (20:45)
[2024-07-27] MEDS ORDERED: ONDANSETRON HCL 4 MG/2 ML VIAL IV PRN (20:45)
[2024-07-27] MEDS ORDERED: DEXTROSE (50%) 50ML SYRG IV PRN ×2 (20:45→23:45)
[2024-07-27 20:55] LABS: Anion Gap 9 (5-15); Calcium 9.2 mg/dL (8.7-10.4); Carbon Dioxide 26 mmol/L (20-31); Chloride 103 mmol/L (98-107); Potassium 3.6 mmol/L (3.5-5.1); Sodium 138 mmol/L (136-145)
[2024-07-27 21:01] LABS: BUN/Creatinine Ratio 19.7 (10.0-20.0)
[2024-07-27 21:02] LABS: HDL Cholesterol 47 mg/dL (40-59)
[2024-07-27 21:11] LABS: Blood Urea Nitrogen 41 mg/dL (9-23); Cholesterol 322 mg/dL (< 200); Glucose 231 mg/dL (74-106); Triglycerides 624 mg/dL (< 150)
--- NOTE | 2024-07-27 21:52 | DVH ---
US KIDNEY INDICATION: renal failure TECHNIQUE: Multiple real-time sonographic images of the kidneys and bladder were obtained. COMPARISON: None FINDINGS: The right kidney measures 9.1 cm in length, which is normal in size. There is normal echogenicity of the right kidney. No hydronephrosis. The left kidney measures 9.2 cm in length, which is normal in size. There is normal echogenicity of t he left kidney. Mild left hydronephrosis No large intraluminal masses are seen in the bladder. Prior to voiding the bladder volume measures volume 570.2 cc. Patient unable to void IMPRESSION: 1. 9.1 cm long right kidney ; 9.2 cm long left kidney. 2. Left-sided hydronephrosis 3. Bladder contains 570.2 mL of the urine. 4. Patient unable to void
[2024-07-27] MEDS: cloNIDine HCL 0.1 MG TAB PO PRN (21:55)
[2024-07-27] MEDS: ACCU-CHEK COMFORT CURVE STRIP VI SCH (23:39)
[2024-07-28] MEDS: ACCU-CHEK COMFORT CURVE STRIP VI SCH ×3 (00:10→16:39)
[2024-07-28] MEDS: InsuLIN REG 1unit/0.01ml Soln (100units/ml) SC SCH ×3 (00:17→16:39)
--- NOTE | 2024-07-28 04:33 | DVHHP2 ---
History of Present Illness Reason for Visit: Headache History of Present Illness 58-year-old female presents for evaluation of a headache that has been ongoing for the past two days. Patient currently denies symptoms of headache nausea or vomiting. She states her blood pressure was elevated in the 200s prior to arrival to the emergency department. Denies blurred vision or unilateral weakness. No chest pain or shortness for breath. Patient reports not taking her medications for the past four months. Past Medical History Hypertension, dyslipidemia, diabetes mellitus, CVA Past Surgical History , hysterectomy, cholecystectomy Family History Noncontributory Smoke: No ALCOHOL: none Drugs: None Lives: with Family Review of Systems Review of Systems Review of systems are currently negative otherwise addressed in HPI. Allergies: Coded Allergies: NO KNOWN ALLERGIES (Unverified , 07/16/14) Medications Current Medications Medications Dose Ordered Sig/Gina Route Start Time Stop Time Status Last Admin Dose Admin Nifedipine 60 mg DAILY PO 07/28/24 10:00 Metoprolol Succinate 25 mg DAILY PO 07/28/24 10:00 Lisinopril 10 mg DAILY PO 07/28/24 10:00 Clonidine HCl 0.1 mg Q6HP PRN PO 07/27/24 20:45 07/27/24 21:55 0.1 MG Ondansetron HCl 4 mg Q4HP PRN IV 07/27/24 20:45 Acetaminophen 650 mg Q6HP PRN PO 07/27/24 20:45 Diagnostic Test (Pha) 1 strip IQ4HR 07/28/24 00:00 07/28/24 04:06 1 STRIP Insulin Human Regular IQ4HR SC 07/28/24 00:00 07/28/24 04:09 6 UNITS Dextrose 50 ml UD PRN IV 07/27/24 23:45 Exam Vital Signs Vital Signs Date Time Temp Pulse Resp B/P (MAP) Pulse Ox O2 Delivery O2 Flow Rate FiO2 07/28/24 04:00 66 17 126/65 (85) 96 07/28/24 01:00 97.6 97.6 07/27/24 19:30 Room Air* 0 21 Exam Gen: 58-year-old female in no apparent distress. Skin: Warm, dry, normal color and texture, no rash. HEENT: Normocephalic atraumatic, mucous membranes moist and pink. Neck: Cervical and supraclavicular nodes normal without enlargement, trachea is midline, thyroid gland is normal without masses. Pulmonary: Clear to auscultation and percussion bilaterally. Cardiac: Regular rate and rhythm. No murmur Abdomen: Soft, nontender, nondistended, bowel sounds present all 4 quadrants, no guarding, no rigidity, no organomegaly. Extremities: No cyanosis, clubbing, no edema Neuro: Cranial nerves II through XII grossly intact, normal affect and speech, no focal motor deficits. Labs/Xrays ORDERING PHYSICIAN: DIPIKA LAY PROCEDURE(s): CXR1 - CHEST XRAY 1 VIEW REASON: cp ORDER NUMBER(s): [id number], ACCESSION NUMBER(s): [id number] CHEST RADIOGRAPH Indication: cp Technique: Single frontal view of the chest was obtained Comparison: CHEST PORTABLE on DOS: 06/07/22, CXRP on DOS: 06/07/22 FINDINGS: Lines and Tubes: None Lungs: No focal consolidation. Pleura: No effusion. No pneumothorax. Cardiomediastinal contours: Unremarkable Bones: No acute osseous abnormality. IMPRESSION: 1. No acute cardiopulmonary disease. RING PHYSICIAN: ADDY PEÑA PROCEDURE(s): KIDUS - KIDNEY REASON: renal failure ORDER NUMBER(s): [id number], ACCESSION NUMBER(s): [id number] KIDNEY INDICATION: renal failure TECHNIQUE: Multiple real-time sonographic images of the kidneys and bladder were obtained. COMPARISON: None FINDINGS: The right kidney measures 9.1 cm in length, which is normal in size. There is normal echogenicity of the right kidney. No hydronephrosis. The left kidney measures 9.2 cm in length, which is normal in size. There is normal echogenicity of the left kidney. Mild left hydronephrosis No large intraluminal masses are seen in the bladder. Prior to voiding the bladder volume measures volume 570.2 cc. Patient unable to void IMPRESSION: 1. 9.1 cm long right kidney ; 9.2 cm long left kidney. 2. Left-sided hydronephrosis 3. Bladder contains 570.2 mL of the urine. 4. Patient unable to void Labs Test 07/28/24 04:05 07/27/24 18:57 07/27/24 16:10 07/27/24 15:57 Range/Units POC Glucose 226 H 70-106 mg/dl Sodium Level 138 # 136-145 mmol/L Potassium Level 3.6 3.5-5.1 mmol/L Chloride Level 103 98-107 mmol/L Carbon Dioxide Level 26 20-31 mmol/L Anion Gap 9 5-15 Blood Urea Nitrogen 41 H 9-23 mg/dL Creatinine 2.08 H 0.550-1.02 mg/dL Glomerular Filtration Rate Calc 27 >90 mL/min BUN/Creatinine Ratio 19.7 10.0-20.0 Serum Glucose 231 H 74-106 mg/dL Calcium Level 9.2 8.7-10.4 mg/dL Troponin I High Sensitivity 20 </=34 ng/L Triglycerides Level 624 H < 150 mg/dL Cholesterol Level 322 H < 200 mg/dL LDL Cholesterol < 100 mg/dL HDL Cholesterol 47 40-59 mg/dL Thyroid Stimulating Hormone (TSH) 1.83 0.55-4.78 uIU/mL Urine Color Colorless Yellow Urine Clarity Clear Clear Urine pH 7.0 5.0-9.0 Urine Specific [place] 1.014 1.001-1.035 Urine Protein 2+ H Negative Urine Ketones Negative Negative Urine Blood Negative Negative /uL Urine Nitrite Negative Negative Urine Bilirubin Negative Negative Urine Urobilinogen Normal Negative mg/dL Urine Leukocyte Esterase Negative Negative /uL Urine RBC <1 0 - 4 /hpf Urine Microscopic WBC 1 0-5 /HPF Urine Squamous Epithelial Cells None seen <5 /hpf Urine Bacteria None seen None Seen /hpf Urine Glucose 4+ H Normal mg/dL White Blood Count 6.0 4.4-10.8 10^3/uL Red Blood Count 4.45 4.0-5.20 10^6/uL Hemoglobin 13.1 12.2-16.2 g/dL Hematocrit 39.1 36.0-46.0 % Mean Corpuscular Volume 88.0 80.0-100.0 fL Mean Corpuscular Hemoglobin 29.5 28.0-32.0 pg Mean Corpuscular Hemoglobin Concent 33.6 32.0-36.0 g/dL Red Cell Distribution Width 13.0 11.8-14.3 % Platelet Count 271 140-450 10^3/uL Mean Platelet Volume 6.7 L 6.9-10.8 fL Neutrophils (%) (Auto) 77.4 37.0-80.0 % Lymphocytes (%) (Auto) 16.3 10.0-50.0 % Monocytes (%) (Auto) 5.0 0.0-12.0 % Eosinophils (%) (Auto) 0.5 0.0-7.0 % Basophils (%) (Auto) 0.8 0.0-2.0 % Neutrophils # (Auto) 4.6 1.6-8.6 10 ^3/uL Lymphocytes # (Auto) 1.0 0.4-5.4 10 ^3/uL Monocytes # (Auto) 0.3 0-1.3 10 ^3/uL Eosinophils # (Auto) 0 0-0.8 10 ^3/uL Basophils # (Auto) 0 0-0.2 10 ^3/uL Nucleated Red Blood Cells 0.0 % Total Bilirubin 0.3 0.2-1.0 mg/dL Aspartate Amino Transferase (AST) 11 L 13-40 U/L Alanine Aminotransferase (ALT) 16 7-40 U/L Alkaline Phosphatase 188 H 46-116 U/L Total Protein 6.6 5.7-8.2 g/dL Albumin 3.7 3.2-4.8 g/dL Assessment/Plan Assessment/Plan Assessment Hypertensive urgency Uncontrolled diabetes mellitus Acute on chronic renal failure Admit the patient to [facility] to the hospitalist Resume home medications As needed antihypertensives Nephrology consultation Continue treatment per orders. Plan discussed with: Patient My Orders [facility] - [facility] Procedure Category Date Status Time Admit ADMIT 07/27/24 Transmitted 19:53 Nifedipine Er PHA 07/28/24 In Process (Procardia Xl 10:00 Metoprolol Xl PHA 07/28/24 In Process Succinate (Toprol Xl) 10:00 Lisinopril Tablet PHA 07/28/24 In Process (Zestril Tablet) 10:00 Clonidine Hcl Tablet PHA 07/27/24 In Process (Catapres Tablet) 20:45 Consistent DIET 07/28/24 Transmitted Carb(Ccho)Diabetes Breakfast Renal DIET 07/28/24 Transmitted Standard(2gna,3gk,Lopho) Breakfast Ondansetron Hcl PHA 07/27/24 In Process (Zofran) 20:45 Cardiac DIET 07/28/24 Transmitted Diet-2gna,Lofat,Lochol Breakfast Echo 2d Mode Cardiac US 07/27/24 Logged DOP 20:31 Condition: Stable JOCY 07/27/24 In Process 20:31 Acetaminophen Tablet PHA 07/27/24 In Process (Tylenol Tablet) 20:45 Bedrest With Bathroom JOCY 07/27/24 In Process Privileg 20:31 *[facility] CONS 07/27/24 Verified -[place] 20:31 Kidney US 07/27/24 Resulted 20:31 Glucose Blood PHA 07/28/24 In Process (Accu-Chek Comfort 00:00 Insulin R (Human) PHA 07/28/24 In Process (Insulin R) 00:00 Dextrose 50% Syringe PHA 07/27/24 In Process 23:45 Date of Service: Jul 27, 2024 Billing Provider: ADDY PEÑA Common Visit Codes: [id number] INP/OBS CARE (HIGH) ADDY PEÑA Jul 28, 2024 04:33
[2024-07-28 07:30] VITALS: PULSE 78; RESP 20; O2SAT 97
[2024-07-28] MEDS: LISINOPRIL 5 MG TAB PO SCH (10:18)
[2024-07-28] MEDS: NIFEdipine ER 30 MG TAB PO SCH (10:19)
[2024-07-28] MEDS: METOPROLOL SUCCINATE XL 50 MG TAB PO SCH (10:21)
[2024-07-28] MEDS ORDERED: DEXTROSE (50%) 50ML SYRG IV PRN ×2 (12:30→13:30)
[2024-07-28 14:00] LABS: Basophils # (auto) 0.1 10 ^3/uL (0-0.2); Eosinophils # (auto) 0 10 ^3/uL (0-0.8); Eosinophils % (auto) 0.6 % (0.0-7.0); Hematocrit 34.5 % (36.0-46.0); Hemoglobin 11.8 g/dL (12.2-16.2); Lymphocytes # (auto) 1.8 10 ^3/uL (0.4-5.4); Lymphocytes % (auto) 26.7 % (10.0-50.0); Mean Corpuscular Hemoglobin 29.7 pg (28.0-32.0); Mean Corpuscular Hgb Conc. 34.2 g/dL (32.0-36.0); Mean Corpuscular Volume 86.8 fL (80.0-100.0); Monocytes # (auto) 0.3 10 ^3/uL (0-1.3); Monocytes % (auto) 5.3 % (0.0-12.0); Neutrophils # (auto) 4.4 10 ^3/uL (1.6-8.6); Neutrophils % (auto) 66.4 % (37.0-80.0); Nucleated Red Blood Cells % 0.1 %; Platelet Count (auto) 289 10^3/uL (140-450); Red Blood Cells 3.97 10^6/uL (4.0-5.20); Red Cell Distribution Width 13.3 % (11.8-14.3); White Blood Cell 6.6 10^3/uL (4.4-10.8)
[2024-07-28 14:05] LABS: Anion Gap 5 (5-15); Calcium 9.4 mg/dL (8.7-10.4); Carbon Dioxide 31 mmol/L (20-31); Chloride 102 mmol/L (98-107); Potassium 3.8 mmol/L (3.5-5.1); Sodium 138 mmol/L (136-145)
[2024-07-28 14:09] LABS: Base Excess 2.8 mmol/L (-2.0-3.0)
[2024-07-28 14:11] LABS: Glucose 288 mg/dL (74-106)
[2024-07-28 14:12] LABS: Lipase 42 U/L (12-53); Magnesium 2.2 mg/dL (1.6-2.6)
[2024-07-28 14:13] LABS: Blood Urea Nitrogen 38 mg/dL (9-23); INR 0.93 (0.9-1.15); Prothrombin Time 9.9 sec (9.3-11.8)
[2024-07-28 14:14] LABS: Phosphorus 3.6 mg/dL (2.4-5.1)
--- NOTE | 2024-07-28 15:18 | DVH ---
EXAM: CT HEAD WITHOUT CONTRAST INDICATION: heADACHE AND RIGHT SIDED BODY PAIN. hX OF cva TECHNIQUE: CT of the head without intravenous contrast. Radiation Dose Information: CT Dose: CTDI volume is 49.19 mGy. Dose-length product is 788.69 mGy*cm The dose indicators for CT are the volume Computed Tomography (CT) Dose Index (CTDIvol) and the Dose Length Product (DLP), and are measured in units of mGy and mGy-cm, respectively. These indicators are not patient dose, but values generated from the CT scanner acquisition factors. The report includes radiation exposure data for exposures received during this examination. COMPARISON: HEAD WITHOUT CONTRAST on DOS: 06/08/22, HEAD WITHOUT CONTRAST on DOS: 12/19/20 FINDINGS: There is no evidence of acute intracranial hemorrhage, extra-axial collection, mass effect, midline s hift, herniation or hydrocephalus. Area of encephalomalacia left occipital lobe unchanged from 06/08/1999 23 The ventricles, sulci and cisterns are age appropriate. The juan-white differentiation is intact. Patchy periventricular and subcortical white matter hypoattenuation is nonspecific but may be related to small vessel ischemic disease. The visualized paranasal sinuses and mastoid air cells are clear. The surrounding soft tissues and osseous structures are unremarkable. IMPRESSION: 1. No acute intracranial hemorrhage 2. Area of encephalomalacia posterior left occipital parietal lobe unchanged from 06/08/2022.
[2024-07-28] MEDS ORDERED: InsuLIN REG 1unit/0.01ml Soln (100units/ml) SC SCH ×2 (16:00)
[2024-07-28] MEDS ORDERED: ATORVASTATIN 20 MG TAB PO ONE (16:15)
[2024-07-28] MEDS: ASPirin 81 mg TAB PO ONE (16:50)
--- NOTE | 2024-07-28 17:18 | DVHPNRES ---
Progress Note Date Seen: Jul 28, 2024 Resident Creating Document: JOSE AGUILERA RESIDENT Medical Necessity Reason Pt with a Central, PICC or Fol: No Subjective Review of Systems Katie Arguelles is a 58-year-old female patient who presents to the ED with chief complaint of constant of oppressive right-sided headache associated with whole-body right-sided pain which started two days before her admission. Patient reports elevated blood pressure readings her blood pressure was elevated in the 200s prior to arrival to the emergency department. Patient reports not taking her medications for the past four months. Patient also reports mechanical fall after tripping two weeks ago with constant left hand pain. Denies fever, chills, palpitation, syncope, chest pain, dyspnea, nausea, vomiting, diarrhea, sick contacts, recent travel and other motor or sensory deficits. Past Medical History: Hypertension, dyslipidemia, diabetes mellitus, CVA in two opportunities (both times in 2023) Past Surgical History: , hysterectomy, cholecystectomy Family History: Noncontributory Social history: [place]. Denies current tobacco, alcohol and other drug abuse Allergies: Denies Home medication: Does not recall, has not been taking medication for the past four months. Patient seen and examined at bedside. Currently persists with headache and right-sided body pain. Ordered head CT which shows no acute intracranial pathology (has old area of infarct). Objective vital signs Vital Sign Date Time Temp Pulse Resp B/P (MAP) Pulse Ox O2 Delivery O2 Flow Rate FiO2 07/28/24 17:08 75 18 137/74 (95) 98 07/28/24 15:00 97.6 97.6 07/28/24 07:30 Room Air* 0 21 medications Current Medications Medications Dose Ordered Sig/Gina Route Start Time Stop Time Status Last Admin Dose Admin Nifedipine 60 mg DAILY PO 07/28/24 10:07/28/24 10:19 60 MG Metoprolol Succinate 25 mg DAILY PO 07/28/24 10:00 07/28/24 10:21 25 MG Lisinopril 10 mg DAILY PO 07/28/24 10:00 07/28/24 10:18 10 MG Clonidine HCl 0.1 mg Q6HP PRN PO 07/27/24 20:45 07/28/24 05:25 0.1 MG Ondansetron HCl 4 mg Q4HP PRN IV 07/27/24 20:45 Acetaminophen 650 mg Q6HP PRN PO 07/27/24 20:45 Dextrose 50 ml UD PRN IV 07/27/24 23:45 Cancel Insulin Human Regular IQ4HR SC 07/28/24 16:00 Cancel Diagnostic Test (Pha) 1 strip IQ4HR 07/28/24 16:00 07/28/24 16:39 1 STRIP Insulin Human Regular IQ4HR SC 07/28/24 16:00 07/28/24 16:39 15 UNITS Dextrose 50 ml UD PRN IV 07/28/24 13:30 Aspirin 81 mg DAILY PO 07/29/24 10:00 Atorvastatin Calcium 40 mg HS PO 07/28/24 22:00 Examination Patient lying in bed, in no acute distress General: Lucid, afebrile, mucosae are moist Cardiovascular: Normal S1 and S2. No murmurs, gallops or rubs Respiratory: Normal ventilation mechanics. Clear lung sounds on auscultation Abdomen: Soft, nontender, no organomegaly, normal bowel sounds MSK/skin: Mobilizes 4 limbs. Skin is dry and warm Neurological: Oriented in 3 spheres. No motor no sensitive deficits. Pupils are isocoric and reactive laboratory and microbiology Laboratory Tests 07/28/24 13:29 Test 07/28/24 13:29 Range/Units Serum Glucose 288 H 74-106 mg/dL Problem List/Assessment/Plan Problem List/Assessment/Plan Assessment: Hypertensive urgency Ruled out CVA Diabetes mellitus - uncontrolled (hemoglobin A1c above 14%) Simple hyperglycemia LANDEN hemodynamically mediated on chronic renal failure Left hydronephrosis Vitamin-D deficiency Non adherence Dyslipidemia History of CVA Plan: Admit the patient to telemetry. We will monitor to evaluate cardioembolic source of CVA (patient is not on blood thinners) Patient was not on any home medication for four months. Initiated aspirin, atorvastatin Completed head CT which showed no intracranial pathology (old chronic infarct) Currently on antihypertensive medication (scheduled lisinopril, metoprolol and nifedipine, p.r.n. clonidine) Nephrology consulted, pending Replenish vitamin-D Indicated Mccall catheter, but patient refused since she has no problems urinating. Ordered bladder scan Patient on moderate insulin sliding scale for simple hyperglycemia, added Lantus 15 units during the a.m.. Monitor glycemia every 4 hours. Goals of care discussed with patient for over 18 minutes: Full code status Discussed plan with Dr. Medina, patient and nurses: Patient has been nonadherent with home medication for four month due to insurance issues, patient is currently on aspirin and atorvastatin high dose. Optimizing diabetic treatment with insulin sliding scale and scheduled Lantus. Optimizing blood pressure was scheduled p.o. medication and p.r.n.. Plan discussed with: Patient, Other (Nurses) My Orders My Orders Orders - JOSE AGUILERA RESIDENT Procedure Category Date Status Time Drug Screen LAB 07/28/24 Logged 13:15 Vitamin B12 LAB 07/28/24 In Process 13:15 Electrocardigram EKG 07/28/24 Logged 13:17 Glucose Blood PHA 07/28/24 In Process (Accu-Chek Comfort 16:00 Insulin R (Human) PHA 07/28/24 In Process (Insulin R) 16:00 Dextrose 50% Syringe PHA 07/28/24 In Process 13:30 Microalbumin Random LAB 07/28/24 Logged Urine 13:21 Osmolality Urine LAB 07/28/24 Logged 13:21 Urine Protein LAB 07/28/24 Logged 13:21 Urine Creatinine LAB 07/28/24 Logged 13:21 Urine Sodium LAB 07/28/24 Logged 13:21 Abg W/ Co-Ox RT 07/28/24 Logged 13:21 Mccall Catheters ED NURSING 07/28/24 Transmitted Insert Mccall Catheter JOCY 07/28/24 Transmitted 13:22 Urine Bacterial PATY 07/28/24 Logged Culture 13:[address] 07/28/24 Resulted 14:45 Bladder Scan ED NURSING 07/28/24 Transmitted Aspirin Tablet PHA 07/29/24 In Process 10:00 Atorvastatin (Lipitor) PHA 07/28/24 In Process 22:00 JOSE AGUILERA RESIDENT Jul 28, 2024 17:18
[2024-07-28 17:27] VITALS: BP 160/120; PULSE 71; RESP 18; TEMP 97.7; O2SAT 98
[2024-07-28 20:00] VITALS: PULSE 86; RESP 18; O2SAT 100
[2024-07-28] MEDS: ACETAMINOPHEN 325 MG TAB PO PRN (20:04)
[2024-07-28 21:00] VITALS: BP 131/70; PULSE 85; RESP 18; TEMP 97.5; O2SAT 98
[2024-07-28] MEDS: ATORVASTATIN 20 MG TAB PO SCH (21:59)
[2024-07-28] MEDS: ERGOCALCIFEROL 50,000 UNIT(1.25MG) CAP PO SCH (22:45)
[2024-07-29] VITALS (7 sets, daily range): BP systolic 135–157; BP diastolic 71–81; PULSE 75–92; RESP 16–18; TEMP 97.8–98.6; O2SAT 97–99
[2024-07-29] MEDS: INSULIN LANTUS (GLARGINE) 1 /0.01ml (100units/ml) SC SCH ×2 (06:46→21:17)
[2024-07-29 07:06] LABS: Alanine Aminotransferase 13 U/L (7-40); Anion Gap 10 (5-15); BUN/Creatinine Ratio 20.2 (10.0-20.0); Carbon Dioxide 24 mmol/L (20-31); Chloride 102 mmol/L (98-107); Potassium 3.5 mmol/L (3.5-5.1)
[2024-07-29 07:08] LABS: Albumin 2.9 g/dL (3.2-4.8); Alkaline Phosphatase 129 U/L (46-116); Aspartate Aminotransferase 9 U/L (13-40); Bilirubin, Total 0.2 mg/dL (0.2-1.0); Blood Urea Nitrogen 48 mg/dL (9-23); Glucose 336 mg/dL (74-106); Sodium 136 mmol/L (136-145); Total Protein 5.2 g/dL (5.7-8.2)
[2024-07-29 07:15] LABS: Basophils # (auto) 0.1 10 ^3/uL (0-0.2); Basophils % (auto) 1.3 % (0.0-2.0); Eosinophils # (auto) 0.1 10 ^3/uL (0-0.8); Eosinophils % (auto) 1.7 % (0.0-7.0); Hematocrit 34.9 % (36.0-46.0); Hemoglobin 11.5 g/dL (12.2-16.2); Lymphocytes % (auto) 26.6 % (10.0-50.0); Mean Corpuscular Volume 87.7 fL (80.0-100.0); Monocytes # (auto) 0.5 10 ^3/uL (0-1.3); Monocytes % (auto) 6.3 % (0.0-12.0); Neutrophils # (auto) 4.7 10 ^3/uL (1.6-8.6); Neutrophils % (auto) 64.1 % (37.0-80.0); Nucleated Red Blood Cells % 0.1 %; Platelet Count (auto) 277 10^3/uL (140-450); Red Blood Cells 3.99 10^6/uL (4.0-5.20); Red Cell Distribution Width 13.2 % (11.8-14.3); White Blood Cell 7.4 10^3/uL (4.4-10.8)
[2024-07-29] MEDS: ASPirin 81 mg TAB PO SCH (08:13)
[2024-07-29 09:25] LABS: Sodium Urine 35 mmol/L (40-220)
[2024-07-29 09:32] LABS: Creatinine, Urine 46.23 mg/dL (30.0-125.0)
[2024-07-29 09:35] LABS: Amphetamine Screen, Urine Neg (NEGATIVE); Barbiturate Scree,Urine Neg (NEGATIVE); Benzodiazephine Screen, Urine Neg (NEGATIVE); Cannabinoid Screen, Urine Neg (NEGATIVE); Cocaine Screen, Urine Neg (NEGATIVE); Opiate Scree,Urine Neg (NEGATIVE); Phencyclidine Screen, Urine Neg (NEGATIVE)
[2024-07-29 09:42] LABS: Protein, Urine 342.1 mg/dL (1-14)
--- NOTE | 2024-07-29 10:16 | DVH ---
EXAM: XR Left Hand Complete, 3 or More Views CLINICAL INDICATION: left hand pain after mechanical fall TECHNIQUE: Frontal, lateral and oblique views of the left hand. COMPARISON: None FINDINGS: BONES/JOINTS: See below. SOFT TISSUES: Soft tissue swelling without acute fracture. No radiopaque foreign body. OTHER FINDINGS: . IMPRESSION: 1. Soft tissue swelling without acute fracture. 2. If symptoms persist, further evaluation with CT is recommended.
--- NOTE | 2024-07-29 15:42 | DVHINCON2 ---
Date of service: Jul 29, 2024 Reason for Consultation LANDEN History of Present Illness 58 years old female patient with past medical history of uncontrolled diabetes, Chronic kidney disease, hypertension, CVA 2 times, history of cholecystectomy, hysterectomy presented with chief complaints of right-sided headache and right- sided pain prior to her admission on arrival to hospital her blood pressure was greater than 240 systolic and diastolic greater than 100 Her HbA1c was also greater than 14 Patient says she does not take any medications for her high blood pressure as sh e ran out Past Medical History As per HPI Past Surgical History As per HPI Allergies: Coded Allergies: NO KNOWN ALLERGIES (Unverified , 07/16/14) Home Meds No Active Prescriptions or Reported Meds Current Medications Current Medications Medications (Trade) Dose Ordered Sig/Gina Route PRN Reason Start Time Stop Time Status Last Admin Insulin Human Regular (InsuLIN R) IQ4HR SC 07/28/24 16:00 Cancel Diagnostic Test (Pha) (Accu-Chek Comfort Curve T) 1 strip IQ4HR 07/28/24 16:00 07/29/24 12:00 Insulin Human Regular (InsuLIN R) IQ4HR SC 07/28/24 16:00 07/29/24 12:01 Aspirin 81 mg DAILY PO 07/29/24 10:00 07/29/24 08:13 Atorvastatin Calcium (Lipitor) 40 mg HS PO 07/28/24 22:00 07/28/24 22:54 DC Atorvastatin Calcium (Lipitor) 80 mg HS PO 07/29/24 22:00 Ergocalciferol (Vitamin D 50,000 Unit) 50,000 unit Q7D PO 07/28/24 22:45 Insulin Glargine (Lantus) 15 units QAM SC 07/29/24 07:00 07/29/24 06:46 Family History: Cancer Cerebrovascular accident (CVA) G8 FATHER, Onset:Unknown Family history: Diabetes mellitus Review of Systems As documented in HPI H&P Exam Vital Signs/I&O Vital Sign Date Time Temp Pulse Resp B/P (MAP) Pulse Ox O2 Delivery O2 Flow Rate FiO2 07/29/24 13:31 98.1 77 16 152/79 (103) 99 98.1 07/29/24 08:00 Room Air* 0 21 Intake and Output 07/28/24 07/29/24 19:00 07:00 Intake Total 240 ml Balance 240 ml Intake Oral 240 ml # Voids 1 Physical Exam General-not in any distress HEENT-normocephalic, no icterus, no pallor, neck supple Respiratory-fair air entry bilateral, no rhonchi, no wheeze [id number] heard, no murmurs appreciated Abdominal-soft, nontender, nondistended Musculoskeletal-no pedal edema, no calf tenderness Genitourinary-deferred Neuro-awake alert oriented x3, Psychiatric-not agitated, cooperative, Labs/Diagnostic Data Labs/Diagnostic Data Laboratory Tests Test 07/29/24 11:54 07/29/24 09:06 07/29/24 07:54 07/29/24 06:30 Range/Units POC Glucose 171 H 142 H 248 H 70-106 mg/dl Urine Creatinine 46.23 30.0-125.0 mg/dL Urine Microalbumin 1680.0 H <30.0 mg/L Urine Sodium 35 L 40-220 mmol/L Urine Total Protein 342.1 H 1-14 mg/dL Urine Opiates Screen Neg NEGATIVE Urine Fentanyl Screen Neg NEGATIVE Urine Barbiturates Screen Neg NEGATIVE Urine Phencyclidine Screen Neg NEGATIVE Urine Amphetamines Screen Neg NEGATIVE Urine Benzodiazepines Screen Neg NEGATIVE Urine Cocaine Screen Neg NEGATIVE Urine Cannabinoids Screen Neg NEGATIVE Test 07/29/24 05:56 07/29/24 04:12 07/29/24 04:10 07/28/24 20:06 Range/Units White Blood Count 7.4 4.4-10.8 10^3/uL Red Blood Count 3.99 L 4.0-5.20 10^6/uL Hemoglobin 11.5 L 12.2-16.2 g/dL Hematocrit 34.9 L 36.0-46.0 % Mean Corpuscular Volume 87.7 80.0-100.0 fL Mean Corpuscular Hemoglobin 29.0 28.0-32.0 pg Mean Corpuscular Hemoglobin Concent 33.0 32.0-36.0 g/dL Red Cell Distribution Width 13.2 11.8-14.3 % Platelet Count 277 140-450 10^3/uL Mean Platelet Volume 7.0 6.9-10.8 fL Neutrophils (%) (Auto) 64.1 37.0-80.0 % Lymphocytes (%) (Auto) 26.6 10.0-50.0 % Monocytes (%) (Auto) 6.3 0.0-12.0 % Eosinophils (%) (Auto) 1.7 0.0-7.0 % Basophils (%) (Auto) 1.3 0.0-2.0 % Neutrophils # (Auto) 4.7 1.6-8.6 10 ^3/uL Lymphocytes # (Auto) 2.0 0.4-5.4 10 ^3/uL Monocytes # (Auto) 0.5 0-1.3 10 ^3/uL Eosinophils # (Auto) 0.1 0-0.8 10 ^3/uL Basophils # (Auto) 0.1 0-0.2 10 ^3/uL Nucleated Red Blood Cells 0.1 % Sodium Level 136 136-145 mmol/L Potassium Level 3.5 3.5-5.1 mmol/L Chloride Level 102 98-107 mmol/L Carbon Dioxide Level 24 20-31 mmol/L Anion Gap 10 5-15 Blood Urea Nitrogen 48 #H 9-23 mg/dL Creatinine 2.38 #H 0.550-1.02 mg/dL Glomerular Filtration Rate Calc 23 >90 mL/min BUN/Creatinine Ratio 20.2 H 10.0-20.0 Serum Glucose 336 H 74-106 mg/dL Calcium Level 9.0 8.7-10.4 mg/dL Total Bilirubin 0.2 0.2-1.0 mg/dL Aspartate Amino Transferase (AST) 9 L 13-40 U/L Alanine Aminotransferase (ALT) 13 7-40 U/L Alkaline Phosphatase 129 H 46-116 U/L Total Protein 5.2 L 5.7-8.2 g/dL Albumin 2.9 L 3.2-4.8 g/dL POC Glucose 392 H 409 *H 148 H 70-106 mg/dl Test 07/28/24 16:10 07/28/24 13:55 07/28/24 13:29 07/28/24 12:47 Range/Units POC Glucose 463 *H 296 H 70-106 mg/dl Blood Gas Specimen Type Arterial Blood Gas Sample Site Right radial Blood Gas Patient Temperature 37.0 Arterial Blood Date Drawn [id number] Arterial Blood pH 7.456 H 7.350-7.450 Arterial Blood Partial Pressure CO2 38.8 32.0-45.0 mmHg Arterial Blood Partial Pressure O2 79.6 L 83.0-108.0 mmHg Arterial Blood HCO3 26.7 21.0-28.0 mmol/L Arterial Blood Oxygen Saturation 95.4 94.0-98.0 % Arterial Blood Base Excess 2.8 -2.0-3.0 mmol/L Arterial Blood Oxyhemoglobin 94.2 94.0-98.0 % Arterial Blood Carboxyhemoglobin 0.7 0.5-1.5 % Arterial Blood Methemoglobin 0.6 0.0-1.5 % Escobar Test Yes Blood Gas Total Hemoglobin 12.80 12.0-16.0 g/dL Blood Gas Modality Room air FiO2 % 21.0 White Blood Count 6.6 4.4-10.8 10^3/uL Red Blood Count 3.97 L 4.0-5.20 10^6/uL Hemoglobin 11.8 L 12.2-16.2 g/dL Hematocrit 34.5 #L 36.0-46.0 % Mean Corpuscular Volume 86.8 80.0-100.0 fL Mean Corpuscular Hemoglobin 29.7 28.0-32.0 pg Mean Corpuscular Hemoglobin Concent 34.2 32.0-36.0 g/dL Red Cell Distribution Width 13.3 11.8-14.3 % Platelet Count 289 140-450 10^3/uL Mean Platelet Volume 6.5 L 6.9-10.8 fL Neutrophils (%) (Auto) 66.4 37.0-80.0 % Lymphocytes (%) (Auto) 26.7 10.0-50.0 % Monocytes (%) (Auto) 5.3 0.0-12.0 % Eosinophils (%) (Auto) 0.6 0.0-7.0 % Basophils (%) (Auto) 1.0 0.0-2.0 % Neutrophils # (Auto) 4.4 1.6-8.6 10 ^3/uL Lymphocytes # (Auto) 1.8 0.4-5.4 10 ^3/uL Monocytes # (Auto) 0.3 0-1.3 10 ^3/uL Eosinophils # (Auto) 0 0-0.8 10 ^3/uL Basophils # (Auto) 0.1 0-0.2 10 ^3/uL Nucleated Red Blood Cells 0.1 % Prothrombin Time 9.9 9.3-11.8 sec Prothrombin Time INR 0.93 0.9-1.15 Activated Partial Thromboplast Time 22.0 L 24.5-34.5 SEC Sodium Level 138 136-145 mmol/L Potassium Level 3.8 3.5-5.1 mmol/L Chloride Level 102 98-107 mmol/L Carbon Dioxide Level 31 20-31 mmol/L Anion Gap 5 5-15 Blood Urea Nitrogen 38 H 9-23 mg/dL Creatinine 1.73 H 0.550-1.02 mg/dL Glomerular Filtration Rate Calc 34 >90 mL/min BUN/Creatinine Ratio 22.0 H 10.0-20.0 Serum Glucose 288 H 74-106 mg/dL Hemoglobin A1c > 14.0 H <5.7 % A1C Lactic Acid Level 2.0 0.4-2.0 mmol/L Calcium Level 9.4 8.7-10.4 mg/dL Phosphorus Level 3.6 2.4-5.1 mg/dL Magnesium Level 2.2 1.6-2.6 mg/dL Lipase 42 12-53 U/L Vitamin D 25-Hydroxy 11.0 L 30.0-100 ng/mL Test 07/28/24 11:43 07/28/24 09:05 07/28/24 08:03 07/28/24 04:05 Range/Units POC Glucose 316 H 205 H 67 L 226 H 70-106 mg/dl Test 07/27/24 23:34 07/27/24 23:32 07/27/24 18:57 07/27/24 18:26 Range/Units POC Glucose 475 *H 495 *H 268 H 70-106 mg/dl Sodium Level 138 # 136-145 mmol/L Potassium Level 3.6 3.5-5.1 mmol/L Chloride Level 103 98-107 mmol/L Carbon Dioxide Level 26 20-31 mmol/L Anion Gap 9 5-15 Blood Urea Nitrogen 41 H 9-23 mg/dL Creatinine 2.08 H 0.550-1.02 mg/dL Glomerular Filtration Rate Calc 27 >90 mL/min BUN/Creatinine Ratio 19.7 10.0-20.0 Serum Glucose 231 H 74-106 mg/dL Calcium Level 9.2 8.7-10.4 mg/dL Troponin I High Sensitivity 20 </=34 ng/L Triglycerides Level 624 H < 150 mg/dL Cholesterol Level 322 H < 200 mg/dL LDL Cholesterol < 100 mg/dL HDL Cholesterol 47 40-59 mg/dL Thyroid Stimulating Hormone (TSH) 1.83 0.55-4.78 uIU/mL Test 07/27/24 16:52 07/27/24 16:10 07/27/24 15:57 Range/Units Troponin I High Sensitivity 15 18 </=34 ng/L Urine Color Colorless Yellow Urine Clarity Clear Clear Urine pH 7.0 5.0-9.0 Urine Specific [place] 1.014 1.001-1.035 Urine Protein 2+ H Negative Urine Ketones Negative Negative Urine Blood Negative Negative /uL Urine Nitrite Negative Negative Urine Bilirubin Negative Negative Urine Urobilinogen Normal Negative mg/dL Urine Leukocyte Esterase Negative Negative /uL Urine RBC <1 0 - 4 /hpf Urine Microscopic WBC 1 0-5 /HPF Urine Squamous Epithelial Cells None seen <5 /hpf Urine Bacteria None seen None Seen /hpf Urine Glucose 4+ H Normal mg/dL White Blood Count 6.0 4.4-10.8 10^3/uL Red Blood Count 4.45 4.0-5.20 10^6/uL Hemoglobin 13.1 12.2-16.2 g/dL Hematocrit 39.1 36.0-46.0 % Mean Corpuscular Volume 88.0 80.0-100.0 fL Mean Corpuscular Hemoglobin 29.5 28.0-32.0 pg Mean Corpuscular Hemoglobin Concent 33.6 32.0-36.0 g/dL Red Cell Distribution Width 13.0 11.8-14.3 % Platelet Count 271 140-450 10^3/uL Mean Platelet Volume 6.7 L 6.9-10.8 fL Neutrophils (%) (Auto) 77.4 37.0-80.0 % Lymphocytes (%) (Auto) 16.3 10.0-50.0 % Monocytes (%) (Auto) 5.0 0.0-12.0 % Eosinophils (%) (Auto) 0.5 0.0-7.0 % Basophils (%) (Auto) 0.8 0.0-2.0 % Neutrophils # (Auto) 4.6 1.6-8.6 10 ^3/uL Lymphocytes # (Auto) 1.0 0.4-5.4 10 ^3/uL Monocytes # (Auto) 0.3 0-1.3 10 ^3/uL Eosinophils # (Auto) 0 0-0.8 10 ^3/uL Basophils # (Auto) 0 0-0.2 10 ^3/uL Nucleated Red Blood Cells 0.0 % Sodium Level 132 L 136-145 mmol/L Potassium Level 4.2 3.5-5.1 mmol/L Chloride Level 97 L 98-107 mmol/L Carbon Dioxide Level 28 20-31 mmol/L Anion Gap 7 5-15 Blood Urea Nitrogen 38 H 9-23 mg/dL Creatinine 2.30 H 0.550-1.02 mg/dL Glomerular Filtration Rate Calc 24 >90 mL/min BUN/Creatinine Ratio 16.5 10.0-20.0 Serum Glucose 692 *H 74-106 mg/dL Calcium Level 9.1 8.7-10.4 mg/dL Total Bilirubin 0.3 0.2-1.0 mg/dL Aspartate Amino Transferase (AST) 11 L 13-40 U/L Alanine Aminotransferase (ALT) 16 7-40 U/L Alkaline Phosphatase 188 H 46-116 U/L Total Protein 6.6 5.7-8.2 g/dL Albumin 3.7 3.2-4.8 g/dL Assessment Acute kidney injury hemodynamic mediated etiology in the setting of hypertensive emergency+ obstructive component Left hydronephrosis on kidney ultrasound Hypertensive emergency Uncontrolled diabetes Hb A1c greater than 14 Nephrotic range proteinuria likely secondary to uncontrolled diabetes Recommendations Patient refused Mccall catheter Urology consult for her left hydronephrosis Bladder scan after one day of kidney ultrasound showed only 100cc Strict blood pressure and diabetes control She will benefit from outpatient nephrology follow-up Please refer her to my office in two weeks after discharge Plan discussed with: Patient JOHNY BRUNNER MD Jul 29, 2024 15:42
--- NOTE | 2024-07-29 15:46 | DVHSR ---
APPROVED REPORT EXAM: Two-dimensional and M-mode echocardiogram with Doppler and color Doppler. Blood Pressure: 143/76 mmHg INDICATION Hypertension RISK FACTORS Height: 5' 2", Weight: 165 DIMENSIONS LVDd3.9 (3.8-5.7cm)LA (2D)3.5 (1.9-4.0cm)Aortic Root2.9 (2.0-3.7cm) LVDs2.7 (2.5-4.0cm)LA (MM) (1.9-4.0cm)Aortic Cusp Exc1.5 (1.5-2.0cm) EF (%) 58.0 (55-70%)Rt. Atrium3.5 (1.9-4.0cm)Asc. Aorta cm IVSd1.3 (0.7-1.1cm)RV (D) (1.8-2.4cm) PWd1.2 (0.7-1.1cm) Mitral Valve MitralMitral Stenosis E wave0.80m/sMV Mean GR.mmHg A wave0.90m/sMV Peak GR.mmHg E/A ratio0.92D MVAcm2 Aortic Valve Aortic ValveAortic Stenosis V10.80m/Laurence Mean GR.4mmHg V21.20m/Laurence Peak GR.7mmHg LVOT Diameter2.0 (1.8-2.4cm)Doppler AVA2.09cm2 Pulmonic Valve V20.50m/s Conclusion Sinus rhythm. Concentric LVH. Dilation of the sinuses of Valsalva. Valves appear to be structurally normal. Left ventricular function appears preserved at 50% with normal RV function. Dopplers unremarkable. No pericardial effusion masses or vegetations.
--- NOTE | 2024-07-29 17:01 | DVHPNRES ---
Progress Note Date Seen: Jul 29, 2024 Resident Creating Document: JOSE AGUILERA RESIDENT Medical Necessity Reason Pt with a Central, PICC or Fol: No Subjective Review of Systems Katie Arguelles is a 58-year-old female patient who presents to the ED with chief complaint of constant of oppressive right-sided headache associated with whole-body right-sided pain which started two days before her admission. Patient reports elevated blood pressure readings her blood pressure was elevated in the 200s prior to arrival to the emergency department. Patient reports not taking her medications for the past four months. Patient also reports mechanical fall after tripping two weeks ago with constant left hand pain. Denies fever, chills, palpitation, syncope, chest pain, dyspnea, nausea, vomiting, diarrhea, sick contacts, recent travel and other motor or sensory deficits. Past Medical History: Hypertension, dyslipidemia, diabetes mellitus, CVA in two opportunities (both times in 2023) Past Surgical History: , hysterectomy, cholecystectomy Family History: Noncontributory Social history: Lives in [place] with son. Denies current tobacco, alcohol and other drug abuse Allergies: Denies Home medication: Does not recall, has not been taking medication for the past four months. Patient seen and examined at bedside. Headache and right-sided body ache improved since admission. Objective vital signs Vital Sign Date Time Temp Pulse Resp B/P (MAP) Pulse Ox O2 Delivery O2 Flow Rate FiO2 07/29/24 16:54 98.6 81 16 155/81 (105) 98 98.6 07/29/24 08:00 Room Air* 0 21 Total Intake and Output 07/28/24 07/28/24 07/29/24 15:00 23:00 07:00 Intake Total 240 ml Balance 240 ml medications Current Medications Medications Dose Ordered Sig/Gina Route Start Time Stop Time Status Last Admin Dose Admin Nifedipine 60 mg DAILY PO 07/28/24 10:00 07/29/24 08:15 60 MG Metoprolol Succinate 25 mg DAILY PO 07/28/24 10:00 07/29/24 08:14 25 MG Lisinopril 10 mg DAILY PO 07/28/24 10:00 Hold 07/29/24 08:14 10 MG Clonidine HCl 0.1 mg Q6HP PRN PO 07/27/24 20:45 07/28/24 05:25 0.1 MG Ondansetron HCl 4 mg Q4HP PRN IV 07/27/24 20:45 Acetaminophen 650 mg Q6HP PRN PO 07/27/24 20:45 07/28/24 20:04 650 MG Dextrose 50 ml UD PRN IV 07/27/24 23:45 Cancel Insulin Human Regular IQ4HR SC 07/28/24 16:00 Cancel Diagnostic Test (Pha) 1 strip IQ4HR 07/28/24 16:00 07/29/24 16:45 1 STRIP Insulin Human Regular IQ4HR SC 07/28/24 16:00 07/29/24 16:49 15 UNITS Dextrose 50 ml UD PRN IV 07/28/24 13:30 Aspirin 81 mg DAILY PO 07/29/24 10:00 07/29/24 08:13 81 MG Atorvastatin Calcium 80 mg HS PO 07/29/24 22:00 Ergocalciferol 50,000 unit Q7D PO 07/28/24 22:45 Insulin Glargine 15 units QAM SC 07/29/24 07:00 07/29/24 06:46 15 UNITS Examination Patient lying in bed, in no acute distress General: Lucid, afebrile, mucosae are moist Cardiovascular: Normal S1 and S2. No murmurs, gallops or rubs Respiratory: Normal ventilation mechanics. Clear lung sounds on auscultation Abdomen: Soft, nontender, no organomegaly, normal bowel sounds MSK/skin: Mobilizes 4 limbs. Skin is dry and warm Neurological: Oriented in 3 spheres. No motor no sensitive deficits. Pupils are isocoric and reactive laboratory and microbiology Laboratory Tests 07/29/24 05:56 Test 07/29/24 05:56 Range/Units Serum Glucose 336 H 74-106 mg/dL Problem List/Assessment/Plan Problem List/Assessment/Plan Assessment: Hypertensive urgency Ruled out CVA Diabetes mellitus - uncontrolled (hemoglobin A1c above 14%) Simple hyperglycemia LANDEN hemodynamically mediated on chronic renal failure Nephrotic range proteinuria (7.4 g/day) probably secondary to uncontrolled diabetes and hypertension Left hydronephrosis Vitamin-D deficiency Non adherence Dyslipidemia History of CVA Plan: Admit the patient to telemetry. We will monitor to evaluate cardioembolic source of CVA (patient is not on blood thinners) Patient was not on any home medication for four months. Initiated aspirin, atorvastatin Completed head CT which showed no intracranial pathology (old chronic infarct) Completed echocardiogram: Concentric LVH, dilation of sinuses of Valsalva, LVEF 50%, normal RV function Currently on antihypertensive medication (scheduled lisinopril, metoprolol and nifedipine, p.r.n. clonidine) Nephrology on board recommend diabetic and hypertensive control, follow up as outpatient. Replenish vitamin-D Indicated Mccall catheter, but patient refused since she has no problems urinating. Ordered bladder scan which showed 100 mm. Urology was consulted for left hydronephrosis Patient on moderate insulin sliding scale for simple hyperglycemia, added Lantus 15 units bid.. Monitor glycemia every 4 hours. Patient will need insulin as outpatient Goals of care discussed with patient for over 18 minutes: Full code status Discussed plan with Dr. Medina, patient and nurses: Patient has been nonadherent with home medication for four month due to insurance issues, patient is currently on aspirin and atorvastatin high dose. Optimizing diabetic treatment with insulin sliding scale and scheduled Lantus. Optimizing blood pressure was scheduled p.o. medication and p.r.n.. Plan discussed with: Patient, Other (Nurses) My Orders My Orders Orders - JOSE AGUILERA RESIDENT Procedure Category Date Status Time Atorvastatin (Lipitor) PHA 07/29/24 In Process 22:00 L Hand 3v Xray XY 07/28/24 Resulted 22:45 Director Mba ORDERS 07/28/24 Transmitted 22:45 Ergocalciferol PHA 07/28/24 In Process (Vitamin D 50,000 22:45 Insulin Lantus PHA 07/29/24 In Process (Glargine) (Lantus) 07:00 Provide Diabetic ORDERS 07/29/24 Transmitted Education 13:41 JOSE AGUILERA RESIDENT Jul 29, 2024 17:01
--- NOTE | 2024-07-29 19:28 | DVHINCON2 ---
Date of service: Jul 29, 2024 Referring Physician Kenny Reason for Consultation left hydro History of Present Illness admitted with severe h/A poorly controlled hypertension found on renal US to have mild left hydronephrosis; denied any urinary sx,no pain hematuria ,infections or incontinence Past Medical History reviewed Past Surgical History reviewed Family History: Cancer Cerebrovascular accident (CVA) G8 FATHER, Onset:Unknown Family history: Diabetes mellitus Allergies: Coded Allergies: NO KNOWN ALLERGIES (Unverified , 07/16/14) Home Meds No Active Prescriptions or Reported Meds Current Medications Current Medications Medications (Trade) Dose Ordered Sig/Gina Route PRN Reason Start Time Stop Time Status Last Admin Aspirin 81 mg DAILY PO 07/29/24 10:00 07/29/24 08:13 Atorvastatin Calcium (Lipitor) 40 mg HS PO 07/28/24 22:00 07/28/24 22:54 DC Atorvastatin Calcium (Lipitor) 80 mg HS PO 07/29/24 22:00 Ergocalciferol (Vitamin D 50,000 Unit) 50,000 unit Q7D PO 07/28/24 22:45 Insulin Glargine (Lantus) 15 units QAM SC 07/29/24 07:00 07/29/24 17:03 DC 07/29/24 06:46 Insulin Glargine (Lantus) 15 units BID SC 07/29/24 22:00 Review of Systems reviewed Vital Signs Vital Signs Date Time Temp Pulse Resp B/P (MAP) Pulse Ox O2 Delivery O2 Flow Rate FiO2 07/29/24 16:54 98.6 81 16 155/81 (105) 98 98.6 07/29/24 08:00 Room Air* 0 21 Labs/Diagnostic Data Labs Test 07/29/24 18:16 07/29/24 09:06 07/29/24 05:56 07/28/24 13:55 Range/Units POC Glucose 282 H 70-106 mg/dl Urine Creatinine 46.23 30.0-125.0 mg/dL Urine Microalbumin 1680.0 H <30.0 mg/L Urine Sodium 35 L 40-220 mmol/L Urine Total Protein 342.1 H 1-14 mg/dL Urine Opiates Screen Neg NEGATIVE Urine Fentanyl Screen Neg NEGATIVE Urine Barbiturates Screen Neg NEGATIVE Urine Phencyclidine Screen Neg NEGATIVE Urine Amphetamines Screen Neg NEGATIVE Urine Benzodiazepines Screen Neg NEGATIVE Urine Cocaine Screen Neg NEGATIVE Urine Cannabinoids Screen Neg NEGATIVE White Blood Count 7.4 4.4-10.8 10^3/uL Red Blood Count 3.99 L 4.0-5.20 10^6/uL Hemoglobin 11.5 L 12.2-16.2 g/dL Hematocrit 34.9 L 36.0-46.0 % Mean Corpuscular Volume 87.7 80.0-100.0 fL Mean Corpuscular Hemoglobin 29.0 28.0-32.0 pg Mean Corpuscular Hemoglobin Concent 33.0 32.0-36.0 g/dL Red Cell Distribution Width 13.2 11.8-14.3 % Platelet Count 277 140-450 10^3/uL Mean Platelet Volume 7.0 6.9-10.8 fL Neutrophils (%) (Auto) 64.1 37.0-80.0 % Lymphocytes (%) (Auto) 26.6 10.0-50.0 % Monocytes (%) (Auto) 6.3 0.0-12.0 % Eosinophils (%) (Auto) 1.7 0.0-7.0 % Basophils (%) (Auto) 1.3 0.0-2.0 % Neutrophils # (Auto) 4.7 1.6-8.6 10 ^3/uL Lymphocytes # (Auto) 2.0 0.4-5.4 10 ^3/uL Monocytes # (Auto) 0.5 0-1.3 10 ^3/uL Eosinophils # (Auto) 0.1 0-0.8 10 ^3/uL Basophils # (Auto) 0.1 0-0.2 10 ^3/uL Nucleated Red Blood Cells 0.1 % Sodium Level 136 136-145 mmol/L Potassium Level 3.5 3.5-5.1 mmol/L Chloride Level 102 98-107 mmol/L Carbon Dioxide Level 24 20-31 mmol/L Anion Gap 10 5-15 Blood Urea Nitrogen 48 #H 9-23 mg/dL Creatinine 2.38 #H 0.550-1.02 mg/dL Glomerular Filtration Rate Calc 23 >90 mL/min BUN/Creatinine Ratio 20.2 H 10.0-20.0 Serum Glucose 336 H 74-106 mg/dL Calcium Level 9.0 8.7-10.4 mg/dL Total Bilirubin 0.2 0.2-1.0 mg/dL Aspartate Amino Transferase (AST) 9 L 13-40 U/L Alanine Aminotransferase (ALT) 13 7-40 U/L Alkaline Phosphatase 129 H 46-116 U/L Total Protein 5.2 L 5.7-8.2 g/dL Albumin 2.9 L 3.2-4.8 g/dL Blood Gas Specimen Type Arterial Blood Gas Sample Site Right radial Blood Gas Patient Temperature 37.0 Arterial Blood Date Drawn [id number] Arterial Blood pH 7.456 H 7.350-7.450 Arterial Blood Partial Pressure CO2 38.8 32.0-45.0 mmHg Arterial Blood Partial Pressure O2 79.6 L 83.0-108.0 mmHg Arterial Blood HCO3 26.7 21.0-28.0 mmol/L Arterial Blood Oxygen Saturation 95.4 94.0-98.0 % Arterial Blood Base Excess 2.8 -2.0-3.0 mmol/L Arterial Blood Oxyhemoglobin 94.2 94.0-98.0 % Arterial Blood Carboxyhemoglobin 0.7 0.5-1.5 % Arterial Blood Methemoglobin 0.6 0.0-1.5 % Escobar Test Yes Blood Gas Total Hemoglobin 12.80 12.0-16.0 g/dL Blood Gas Modality Room air FiO2 % 21.0 Test 07/28/24 13:29 07/27/24 18:57 07/27/24 16:10 Range/Units Prothrombin Time 9.9 9.3-11.8 sec Prothrombin Time INR 0.93 0.9-1.15 Activated Partial Thromboplast Time 22.0 L 24.5-34.5 SEC Hemoglobin A1c > 14.0 H <5.7 % A1C Lactic Acid Level 2.0 0.4-2.0 mmol/L Phosphorus Level 3.6 2.4-5.1 mg/dL Magnesium Level 2.2 1.6-2.6 mg/dL Lipase 42 12-53 U/L Vitamin D 25-Hydroxy 11.0 L 30.0-100 ng/mL Troponin I High Sensitivity 20 </=34 ng/L Triglycerides Level 624 H < 150 mg/dL Cholesterol Level 322 H < 200 mg/dL LDL Cholesterol < 100 mg/dL HDL Cholesterol 47 40-59 mg/dL Thyroid Stimulating Hormone (TSH) 1.83 0.55-4.78 uIU/mL Urine Color Colorless Yellow Urine Clarity Clear Clear Urine pH 7.0 5.0-9.0 Urine Specific [place] 1.014 1.001-1.035 Urine Protein 2+ H Negative Urine Ketones Negative Negative Urine Blood Negative Negative /uL Urine Nitrite Negative Negative Urine Bilirubin Negative Negative Urine Urobilinogen Normal Negative mg/dL Urine Leukocyte Esterase Negative Negative /uL Urine RBC <1 0 - 4 /hpf Urine Microscopic WBC 1 0-5 /HPF Urine Squamous Epithelial Cells None seen <5 /hpf Urine Bacteria None seen None Seen /hpf Urine Glucose 4+ H Normal mg/dL Assessment left hydronephrosis etiology ink per US Plan/Recommendation CT abdomen and pelvis tomorrow Plan discussed with: Patient MITUL SWEENEY MD Jul 29, 2024 19:28
[2024-07-29] MEDS: ATORVASTATIN 20 MG TAB PO SCH (21:17)
[2024-07-30] VITALS (10 sets, daily range): BP systolic 108–168; BP diastolic 69–88; PULSE 73–91; RESP 15–18; TEMP 97.8–98.5; O2SAT 95–99
[2024-07-30 05:42] LABS: Basophils # (auto) 0.1 10 ^3/uL (0-0.2); Basophils % (auto) 0.7 % (0.0-2.0); Eosinophils # (auto) 0.1 10 ^3/uL (0-0.8); Eosinophils % (auto) 0.6 % (0.0-7.0); Hematocrit 39.1 % (36.0-46.0); Hemoglobin 13.2 g/dL (12.2-16.2); Lymphocytes # (auto) 1.5 10 ^3/uL (0.4-5.4); Lymphocytes % (auto) 15.9 % (10.0-50.0); Mean Corpuscular Hemoglobin 29.6 pg (28.0-32.0); Mean Corpuscular Hgb Conc. 33.8 g/dL (32.0-36.0); Mean Corpuscular Volume 87.6 fL (80.0-100.0); Monocytes # (auto) 0.5 10 ^3/uL (0-1.3); Monocytes % (auto) 5.8 % (0.0-12.0); Neutrophils # (auto) 7.3 10 ^3/uL (1.6-8.6); Nucleated Red Blood Cells % 0.1 %; Platelet Count (auto) 345 10^3/uL (140-450); Red Blood Cells 4.46 10^6/uL (4.0-5.20); White Blood Cell 9.5 10^3/uL (4.4-10.8)
[2024-07-30 05:51] LABS: Chloride 102 mmol/L (98-107); Potassium 3.8 mmol/L (3.5-5.1); Sodium 139 mmol/L (136-145)
[2024-07-30 05:52] LABS: Anion Gap 12 (5-15); Carbon Dioxide 25 mmol/L (20-31)
[2024-07-30 05:53] LABS: Calcium 9.5 mg/dL (8.7-10.4)
[2024-07-30 05:58] LABS: BUN/Creatinine Ratio 22.6 (10.0-20.0)
[2024-07-30 05:59] LABS: Blood Urea Nitrogen 47 mg/dL (9-23); Glucose 141 mg/dL (74-106)
--- NOTE | 2024-07-30 10:52 | DVHPNRES ---
Progress Note Date Seen: Jul 30, 2024 Resident Creating Document: SHELLY TUCKER RESIDENT Medical Necessity Reason Pt with a Central, PICC or Fol: No Subjective Review of Systems Patient seen and Examined at bedside. No new complaints Objective vital signs Vital Sign Date Time Temp Pulse Resp B/P (MAP) Pulse Ox O2 Delivery O2 Flow Rate FiO2 07/30/24 09:33 162/86 07/30/24 09:32 88 07/30/24 09:00 98.5 17 96 98.5 07/30/24 08:05 Room Air* 0 21 Total Intake and Output 07/29/24 07/29/24 07/30/24 15:00 23:00 07:00 Intake Total 450 ml 950 ml Output Total 800 ml 400 ml Balance -800 ml 50 ml 950 ml medications Current Medications Medications Dose Ordered Sig/Gina Route Start Time Stop Time Status Last Admin Dose Admin Nifedipine 60 mg DAILY PO 07/28/24 10:00 07/30/24 09:33 60 MG Metoprolol Succinate 25 mg DAILY PO 07/28/24 10:00 07/30/24 09:32 25 MG Lisinopril 10 mg DAILY PO 07/28/24 10:00 Hold 07/29/24 08:14 10 MG Clonidine HCl 0.1 mg Q6HP PRN PO 07/27/24 20:45 07/28/24 05:25 0.1 MG Ondansetron HCl 4 mg Q4HP PRN IV 07/27/24 20:45 Acetaminophen 650 mg Q6HP PRN PO 07/27/24 20:45 07/28/24 20:04 650 MG Dextrose 50 ml UD PRN IV 07/27/24 23:45 Cancel Insulin Human Regular IQ4HR SC 07/28/24 16:00 Cancel Diagnostic Test (Pha) 1 strip IQ4HR 07/28/24 16:00 07/30/24 08:07 1 STRIP Insulin Human Regular IQ4HR SC 07/28/24 16:00 07/30/24 08:08 3 UNITS Dextrose 50 ml UD PRN IV 07/28/24 13:30 Aspirin 81 mg DAILY PO 07/29/24 10:00 07/30/24 09:32 81 MG Atorvastatin Calcium 80 mg HS PO 07/29/24 22:00 07/29/24 21:17 80 MG Ergocalciferol 50,000 unit Q7D PO 07/28/24 22:45 Insulin Glargine 15 units BID SC 07/29/24 22:00 07/30/24 09:36 15 UNITS Examination General Appearance: Cooperative. Well developed. Well nourished. NAD Head Exam: Normal inspection Neck Exam: Normal inspection. Non-tender. Normal alignment Pulmonary/Respiratory: Chest non-tender. Clear bilateral breath sounds Cardiovascular/Chest: Regular rate and rhythm. No murmurs. No JVD. Peripheral Pulses: 2+ Radial (R). 2+ Radial (L). 2+ Pedal (R). 2+ Pedal (L) Abdominal Exam: Normal bowel sounds. Soft. Nontender. No hepatospenomegaly. No masses Ankle Exam: Negative ankle edema Lower extremities: Negative lower extremity edema Neuro/Mental Status: A&O x4. Coherent Thoughts/Psych: Normal thought pattern. Appropriate mood and affect. Good judgement and insight Appearance: In no acute distress Skin Exam: Normal inspection. Normal color. Warm. Dry laboratory and microbiology Laboratory Tests 07/30/24 04:40 Test 07/30/24 04:40 Range/Units Serum Glucose 141 H 74-106 mg/dL Problem List/Assessment/Plan Problem List/Assessment/Plan Hypertensive urgency Ruled out CVA Diabetes mellitus - uncontrolled (hemoglobin A1c above 14%) Simple hyperglycemia LANDEN hemodynamically mediated on chronic renal failure Nephrotic range proteinuria (7.4 g/day) probably secondary to uncontrolled diabetes and hypertension Left hydronephrosis Vitamin-D deficiency Non adherence Dyslipidemia History of CVA Plan: Possible abdominal CT scan as per Urology. Patient was not on any home medication for four months. Initiated aspirin, atorvastatin Completed head CT which showed no intracranial pathology (old chronic infarct) Completed echocardiogram: Concentric LVH, dilation of sinuses of Valsalva, LVEF 50%, normal RV function Currently on antihypertensive medication (scheduled lisinopril, metoprolol and nifedipine, p.r.n. clonidine) Nephrology on board recommend diabetic and hypertensive control, follow up as outpatient. Replenish vitamin-D Indicated Mccall catheter, but patient refused since she has no problems urinating. Ordered bladder scan which showed 100 mm. Urology was consulted for left hydronephrosis Patient on moderate insulin sliding scale for simple hyperglycemia, added Lantus 15 units bid.. Monitor glycemia every 4 hours. Patient will need insulin as outpatient Goals of care discussed with patient for over 18 minutes: Full code status Discussed plan with Dr. Medina, patient and nurses: Urology evaluation. As per Urology possible abdominal pelvis CT scan today. Patient has been nonadherent with home medication for four month due to insurance issues, patient is currently on aspirin and atorvastatin high dose. Optimizing diabetic treatment with insulin sliding scale and scheduled Lantus. Optimizing blood pressure was scheduled p.o. medication and p.r.n.. Plan discussed with: Patient, Other (RN) SHELLY TUCKER RESIDENT Jul 30, 2024 10:52
--- NOTE | 2024-07-30 15:41 | DVHPN2 ---
Progress Note Date Seen: Jul 30, 2024 Medical Necessity Reason Pt with a Central, PICC or Fol: No Subjective Patient reports: No new complaints Review of Systems: Deferred Objective vital signs Vital Sign Date Time Temp Pulse Resp B/P (MAP) Pulse Ox O2 Delivery O2 Flow Rate FiO2 07/30/24 13:30 75 142/79 (100) 07/30/24 12:30 98.2 18 99 98.2 07/30/24 08:05 Room Air* 0 21 Total Intake and Output 07/29/24 07/29/24 07/30/24 15:00 23:00 07:00 Intake Total 450 ml 950 ml Output Total 800 ml 400 ml Balance -800 ml 50 ml 950 ml medications Current Medications Medications Dose Ordered Sig/Gina Route Start Time Stop Time Status Last Admin Dose Admin Nifedipine 60 mg DAILY PO 07/28/24 10:00 07/30/24 09:33 60 MG Metoprolol Succinate 25 mg DAILY PO 07/28/24 10:00 07/30/24 09:32 25 MG Lisinopril 10 mg DAILY PO 07/28/24 10:00 Hold 07/29/24 08:14 10 MG Clonidine HCl 0.1 mg Q6HP PRN PO 07/27/24 20:45 07/30/24 12:38 0.1 MG Ondansetron HCl 4 mg Q4HP PRN IV 07/27/24 20:45 Acetaminophen 650 mg Q6HP PRN PO 07/27/24 20:45 07/28/24 20:04 650 MG Dextrose 50 ml UD PRN IV 07/27/24 23:45 Cancel Insulin Human Regular IQ4HR SC 07/28/24 16:00 Cancel Diagnostic Test (Pha) 1 strip IQ4HR 07/28/24 16:00 07/30/24 12:11 1 STRIP Insulin Human Regular IQ4HR SC 07/28/24 16:00 07/30/24 12:14 2 UNITS Dextrose 50 ml UD PRN IV 07/28/24 13:30 Aspirin 81 mg DAILY PO 07/29/24 10:00 07/30/24 09:32 81 MG Atorvastatin Calcium 80 mg HS PO 07/29/24 22:00 07/29/24 21:17 80 MG Ergocalciferol 50,000 unit Q7D PO 07/28/24 22:45 Insulin Glargine 15 units BID SC 07/29/24 22:00 07/30/24 09:36 15 UNITS laboratory and microbiology Laboratory Tests 07/30/24 04:40 Test 07/30/24 04:40 Range/Units Serum Glucose 141 H 74-106 mg/dL Problem List/Assessment/Plan Problem List/Assessment/Plan Acute kidney injury hemodynamic mediated etiology in the setting of hypertensive emergency+ obstructive component Left hydronephrosis on kidney ultrasound Hypertensive emergency Uncontrolled diabetes Hb A1c greater than 14 Nephrotic range proteinuria likely secondary to uncontrolled diabetes Recommendations Patient refused Mccall catheter Urology consult for her left hydronephrosis Bladder scan after one day of kidney ultrasound showed only 100cc Strict blood pressure and diabetes control She will benefit from outpatient nephrology follow-up Please refer her to my office in two weeks after discharge Plan discussed with: Patient My Orders My Orders Orders - JOHNY BRUNNER MD Procedure Category Date Status Time * Urology Consult CONS 07/29/24 Transmitted 15:36 JOHNY BURNNER MD Jul 30, 2024 15:41
[2024-07-31] VITALS (9 sets, daily range): BP systolic 137–172; BP diastolic 73–95; PULSE 68–86; RESP 16–19; TEMP 97.6–98.1; O2SAT 97–100
[2024-07-31 07:09] LABS: Basophils # (auto) 0.1 10 ^3/uL (0-0.2); Basophils % (auto) 0.9 % (0.0-2.0); Eosinophils # (auto) 0.2 10 ^3/uL (0-0.8); Eosinophils % (auto) 2.9 % (0.0-7.0); Hematocrit 32.6 % (36.0-46.0); Hemoglobin 11.5 g/dL (12.2-16.2); Lymphocytes # (auto) 1.8 10 ^3/uL (0.4-5.4); Lymphocytes % (auto) 27.4 % (10.0-50.0); Mean Corpuscular Hemoglobin 30.9 pg (28.0-32.0); Mean Corpuscular Hgb Conc. 35.3 g/dL (32.0-36.0); Mean Corpuscular Volume 87.6 fL (80.0-100.0); Monocytes # (auto) 0.6 10 ^3/uL (0-1.3); Monocytes % (auto) 9.5 % (0.0-12.0); Neutrophils # (auto) 3.8 10 ^3/uL (1.6-8.6); Neutrophils % (auto) 59.3 % (37.0-80.0); Platelet Count (auto) 276 10^3/uL (140-450); Red Blood Cells 3.72 10^6/uL (4.0-5.20); Red Cell Distribution Width 12.5 % (11.8-14.3); White Blood Cell 6.4 10^3/uL (4.4-10.8)
[2024-07-31 07:13] LABS: Chloride 106 mmol/L (98-107); Potassium 4.2 mmol/L (3.5-5.1); Sodium 142 mmol/L (136-145)
[2024-07-31 07:14] LABS: Anion Gap 8 (5-15); Calcium 9.1 mg/dL (8.7-10.4); Carbon Dioxide 28 mmol/L (20-31)
[2024-07-31 07:19] LABS: BUN/Creatinine Ratio 21.6 (10.0-20.0)
[2024-07-31 07:21] LABS: Blood Urea Nitrogen 42 mg/dL (9-23); Glucose 74 mg/dL (74-106)
--- NOTE | 2024-07-31 10:49 | DVH ---
Exam: CT CT AB PEL WO CON-NO ORAL OR IV History: left hydronpehrosis Comparison Study: Renal ultrasound 07/27/2024 Technique: Multidetector spiral CT of the abdomen and pelvis was performed from lung bases to pubic symphysis. Imaging was performed without IV contrast. Axial, coronal and sagittal multiplanar reform ats were obtained from the axial data set by the technologist. Radiation dose : Abdomen/Pelvis: CTDIvol 8.03 mGy, DLP 438.92 mGy*cm. Findings: Evaluation of solid organs is limited due to lack of intravenous contrast use. Lung Bases: Trace bilateral pleural effusions with associated bibasilar atelectasis and consolidation . Liver: The liver is normal in size. No focal lesions. Gallbladder and biliary Tree: Unremarkable Spleen: Unremarkable Pancreas: The pancreas is grossly normal in appearance. Adrenal Glands: Unremarkable Kidneys: Duplicated left renal collecting system. No hydronephrosis. Punctate left lower pole renal calculi. Bladder: Mild irregularity of the anterior wall of the bladder could be postsurgical. Bowel: The stomach is grossly normal in appearance. Small bowel and colon are normal in caliber and d istribution. The appendix is not visualized; however, no secondary findings of acute appendicitis dang ntified. Ascites: Absent Lymphadenopathy: Shotty retroperitoneal lymphadenopathy. Subcentimeter right lower quadrant lymph nod es. Abdominal wall and Mesentery: Postsurgical changes anterior abdominal and pelvic wall. Vasculature: The visualized abdominal aorta is normal in size and caliber. Evaluation of abdominal a nd pelvic vessels is limited due to lack of intravenous contrast. Pelvic Organs: The uterus is surgically absent. Musculoskeletal: No aggressive focal bony lesions, acute fractures or dislocation. IMPRESSION: 1. Duplicated left renal collecting system. Punctate left renal calculi. No hydronephrosis. Trace bi lateral pleural effusions. Mild irregularity of the anterior wall of the bladder could be postsurgica l. Shotty retroperitoneal lymphadenopathy is nonspecific. Radiation optimization: All CT scans at this facility use at least one of these dose optimization jaxon hniques: Automated exposure control mA and/or kV adjustment per patient size (includes targeted exams where dose is matched to clinical indication) or iterative reconstruction. HS:Y
--- NOTE | 2024-07-31 11:55 | DVHINCON2 ---
Date of service: Jul 31, [address] Kumari History of Present Illness Home Meds No Active Prescriptions or Reported Meds Past Medical History Patient Family History: Cancer Cerebrovascular accident (CVA) G8 FATHER, Onset:Unknown Family history: Diabetes mellitus H&P Exam Vital Signs Vital Signs Date Time Temp Pulse Resp B/P (MAP) Pulse Ox O2 Delivery O2 Flow Rate FiO2 07/31/24 10:01 73 165/83 07/31/24 08:42 97.9 17 100 97.9 07/31/24 08:05 Room Air* 0 21 Labs/Xrays Labs Test 07/31/24 07:42 07/31/24 06:06 07/29/24 09:06 07/29/24 05:56 Range/Units POC Glucose 88 70-106 mg/dl White Blood Count 6.4 # 4.4-10.8 10^3/uL Red Blood Count 3.72 L 4.0-5.20 10^6/uL Hemoglobin 11.5 L 12.2-16.2 g/dL Hematocrit 32.6 #L 36.0-46.0 % Mean Corpuscular Volume 87.6 80.0-100.0 fL Mean Corpuscular Hemoglobin 30.9 28.0-32.0 pg Mean Corpuscular Hemoglobin Concent 35.3 32.0-36.0 g/dL Red Cell Distribution Width 12.5 11.8-14.3 % Platelet Count 276 140-450 10^3/uL Mean Platelet Volume 6.4 L 6.9-10.8 fL Neutrophils (%) (Auto) 59.3 37.0-80.0 % Lymphocytes (%) (Auto) 27.4 10.0-50.0 % Monocytes (%) (Auto) 9.5 0.0-12.0 % Eosinophils (%) (Auto) 2.9 0.0-7.0 % Basophils (%) (Auto) 0.9 0.0-2.0 % Neutrophils # (Auto) 3.8 1.6-8.6 10 ^3/uL Lymphocytes # (Auto) 1.8 0.4-5.4 10 ^3/uL Monocytes # (Auto) 0.6 0-1.3 10 ^3/uL Eosinophils # (Auto) 0.2 0-0.8 10 ^3/uL Basophils # (Auto) 0.1 0-0.2 10 ^3/uL Nucleated Red Blood Cells 0.0 % Sodium Level 142 136-145 mmol/L Potassium Level 4.2 3.5-5.1 mmol/L Chloride Level 106 98-107 mmol/L Carbon Dioxide Level 28 20-31 mmol/L Anion Gap 8 5-15 Blood Urea Nitrogen 42 H 9-23 mg/dL Creatinine 1.94 H 0.550-1.02 mg/dL Glomerular Filtration Rate Calc 29 >90 mL/min BUN/Creatinine Ratio 21.6 H 10.0-20.0 Serum Glucose 74 74-106 mg/dL Calcium Level 9.1 8.7-10.4 mg/dL Urine Creatinine 46.23 30.0-125.0 mg/dL Urine Microalbumin 1680.0 H <30.0 mg/L Urine Sodium 35 L 40-220 mmol/L Urine Total Protein 342.1 H 1-14 mg/dL Urine Opiates Screen Neg NEGATIVE Urine Fentanyl Screen Neg NEGATIVE Urine Barbiturates Screen Neg NEGATIVE Urine Phencyclidine Screen Neg NEGATIVE Urine Amphetamines Screen Neg NEGATIVE Urine Benzodiazepines Screen Neg NEGATIVE Urine Cocaine Screen Neg NEGATIVE Urine Cannabinoids Screen Neg NEGATIVE Total Bilirubin 0.2 0.2-1.0 mg/dL Aspartate Amino Transferase (AST) 9 L 13-40 U/L Alanine Aminotransferase (ALT) 13 7-40 U/L Alkaline Phosphatase 129 H 46-116 U/L Total Protein 5.2 L 5.7-8.2 g/dL Albumin 2.9 L 3.2-4.8 g/dL Test 07/28/24 13:55 07/28/24 13:29 07/27/24 18:57 07/27/24 16:10 Range/Units Blood Gas Specimen Type Arterial Blood Gas Sample Site Right radial Blood Gas Patient Temperature 37.0 Arterial Blood Date Drawn [id number] Arterial Blood pH 7.456 H 7.350-7.450 Arterial Blood Partial Pressure CO2 38.8 32.0-45.0 mmHg Arterial Blood Partial Pressure O2 79.6 L 83.0-108.0 mmHg Arterial Blood HCO3 26.7 21.0-28.0 mmol/L Arterial Blood Oxygen Saturation 95.4 94.0-98.0 % Arterial Blood Base Excess 2.8 -2.0-3.0 mmol/L Arterial Blood Oxyhemoglobin 94.2 94.0-98.0 % Arterial Blood Carboxyhemoglobin 0.7 0.5-1.5 % Arterial Blood Methemoglobin 0.6 0.0-1.5 % Escobar Test Yes Blood Gas Total Hemoglobin 12.80 12.0-16.0 g/dL Blood Gas Modality Room air FiO2 % 21.0 Prothrombin Time 9.9 9.3-11.8 sec Prothrombin Time INR 0.93 0.9-1.15 Activated Partial Thromboplast Time 22.0 L 24.5-34.5 SEC Hemoglobin A1c > 14.0 H <5.7 % A1C Lactic Acid Level 2.0 0.4-2.0 mmol/L Phosphorus Level 3.6 2.4-5.1 mg/dL Magnesium Level 2.2 1.6-2.6 mg/dL Lipase 42 12-53 U/L Vitamin B12 Level 672 211-911 pg/mL Vitamin D 25-Hydroxy 11.0 L 30.0-100 ng/mL Troponin I High Sensitivity 20 </=34 ng/L Triglycerides Level 624 H < 150 mg/dL Cholesterol Level 322 H < 200 mg/dL LDL Cholesterol < 100 mg/dL HDL Cholesterol 47 40-59 mg/dL Thyroid Stimulating Hormone (TSH) 1.83 0.55-4.78 uIU/mL Urine Color Colorless Yellow Urine Clarity Clear Clear Urine pH 7.0 5.0-9.0 Urine Specific [place] 1.014 1.001-1.035 Urine Protein 2+ H Negative Urine Ketones Negative Negative Urine Blood Negative Negative /uL Urine Nitrite Negative Negative Urine Bilirubin Negative Negative Urine Urobilinogen Normal Negative mg/dL Urine Leukocyte Esterase Negative Negative /uL Urine RBC <1 0 - 4 /hpf Urine Microscopic WBC 1 0-5 /HPF Urine Squamous Epithelial Cells None seen <5 /hpf Urine Bacteria None seen None Seen /hpf Urine Glucose 4+ H Normal mg/dL Assessment/Plan Problem List: (1) Duplicated collecting system (2) UTI (urinary tract infection) Plan NM renal scan with split function and lasix washout Plan discussed with: HAILEY Gutierres NP Jul 31, 2024 11:55
--- NOTE | 2024-07-31 12:30 | DVHPN2 ---
Progress Note Date Seen: Jul 31, 2024 Medical Necessity Reason Pt with a Central, PICC or Fol: No Subjective Patient reports: No new complaints Other Systems: Patient seen and examined by myself today in follow-up Objective vital signs Vital Sign Date Time Temp Pulse Resp B/P (MAP) Pulse Ox O2 Delivery O2 Flow Rate FiO2 07/31/24 12:04 172/95 07/31/24 10:01 73 07/31/24 08:42 97.9 17 100 97.9 07/31/24 08:05 Room Air* 0 21 Total Intake and Output 07/30/24 07/30/24 07/31/24 15:00 23:00 07:00 Intake Total 900 ml 900 ml Balance 900 ml 900 ml medications Current Medications Medications Dose Ordered Sig/Gina Route Start Time Stop Time Status Last Admin Dose Admin Nifedipine 60 mg DAILY PO 07/28/24 10:00 07/31/24 10:01 60 MG Metoprolol Succinate 25 mg DAILY PO 07/28/24 10:00 07/31/24 10:01 25 MG Lisinopril 10 mg DAILY PO 07/28/24 10:00 Hold 07/29/24 08:14 10 MG Clonidine HCl 0.1 mg Q6HP PRN PO 07/27/24 20:45 07/31/24 12:04 0.1 MG Ondansetron HCl 4 mg Q4HP PRN IV 07/27/24 20:45 Acetaminophen 650 mg Q6HP PRN PO 07/27/24 20:45 07/30/24 21:45 650 MG Dextrose 50 ml UD PRN IV 07/27/24 23:45 Cancel Insulin Human Regular IQ4HR SC 07/28/24 16:00 Cancel Diagnostic Test (Pha) 1 strip IQ4HR 07/28/24 16:00 07/31/24 11:53 1 STRIP Insulin Human Regular IQ4HR SC 07/28/24 16:00 07/31/24 11:54 6 UNITS Dextrose 50 ml UD PRN IV 07/28/24 13:30 Aspirin 81 mg DAILY PO 07/29/24 10:00 07/31/24 10:01 81 MG Atorvastatin Calcium 80 mg HS PO 07/29/24 22:00 07/30/24 21:44 80 MG Ergocalciferol 50,000 unit Q7D PO 07/28/24 22:45 Insulin Glargine 15 units BID SC 07/29/24 22:00 07/31/24 10:05 15 UNITS Examination: LUNGS:Normal, CVS:Normal, MSK:Normal laboratory and microbiology Laboratory Tests 07/31/24 06:06 Test 07/31/24 06:06 Range/Units Serum Glucose 74 74-106 mg/dL Problem List/Assessment/Plan Problem List/Assessment/Plan Acute kidney injury hemodynamic mediated etiology in the setting of hypertensive emergency+ obstructive component Left hydronephrosis on kidney ultrasound Hypertensive emergency Uncontrolled diabetes Hb A1c greater than 14 Nephrotic range proteinuria likely secondary to uncontrolled diabetes Recommendations Kidney function slightly improving today Increased urine output Urology consult for her left hydronephrosis Bladder scan after one day of kidney ultrasound showed only 100cc Strict blood pressure and diabetes control Blood pressure control We will continue to follow up Plan discussed with: Patient Dietary Evaluation Review Recommendations by RD: Dietary education by RD Comments: 1) Continue to encourage optimal PO intake 2) Refer to outpatient RD/[facility] for diabetes education 3) Consider referal to endocrinology 4) Follow-up with nephrology and urology 4) Continue to monitor I&O, labs, and skin integrity Expected Outcomes/Goals: 1) appetite and labs to improve 2) f/u in 3-5 days VERONIKA BOUDREAUX MD Jul 31, 2024 12:30
--- NOTE | 2024-07-31 13:05 | DVHPNRES ---
Progress Note Date Seen: Jul 31, 2024 Resident Creating Document: SHELLY TUCKER RESIDENT Medical Necessity Reason Pt with a Central, PICC or Fol: No Subjective Review of Systems Patient seen and Examined at bedside. No new complaints plan for CT abdomen pelvis Objective vital signs Vital Sign Date Time Temp Pulse Resp B/P (MAP) Pulse Ox O2 Delivery O2 Flow Rate FiO2 07/31/24 12:33 97.6 82 17 172/95 (120) 97 97.6 07/31/24 08:05 Room Air* 0 21 Total Intake and Output 07/30/24 07/30/24 07/31/24 15:00 23:00 07:00 Intake Total 900 ml 900 ml Balance 900 ml 900 ml medications Current Medications Medications Dose Ordered Sig/Gina Route Start Time Stop Time Status Last Admin Dose Admin Nifedipine 60 mg DAILY PO 07/28/24 10:00 07/31/24 10:01 60 MG Metoprolol Succinate 25 mg DAILY PO 07/28/24 10:00 07/31/24 10:01 25 MG Lisinopril 10 mg DAILY PO 07/28/24 10:00 Hold 07/29/24 08:14 10 MG Clonidine HCl 0.1 mg Q6HP PRN PO 07/27/24 20:45 07/31/24 12:04 0.1 MG Ondansetron HCl 4 mg Q4HP PRN IV 07/27/24 20:45 Acetaminophen 650 mg Q6HP PRN PO 07/27/24 20:45 07/30/24 21:45 650 MG Dextrose 50 ml UD PRN IV 07/27/24 23:45 Cancel Insulin Human Regular IQ4HR SC 07/28/24 16:00 Cancel Diagnostic Test (Pha) 1 strip IQ4HR 07/28/24 16:00 07/31/24 11:53 1 STRIP Insulin Human Regular IQ4HR SC 07/28/24 16:00 07/31/24 11:54 6 UNITS Dextrose 50 ml UD PRN IV 07/28/24 13:30 Aspirin 81 mg DAILY PO 07/29/24 10:00 07/31/24 10:01 81 MG Atorvastatin Calcium 80 mg HS PO 07/29/24 22:00 07/30/24 21:44 80 MG Ergocalciferol 50,000 unit Q7D PO 07/28/24 22:45 Insulin Glargine 15 units BID SC 07/29/24 22:00 07/31/24 10:05 15 UNITS Examination General Appearance: Cooperative. Well developed. Well nourished. NAD Head Exam: Normal inspection Neck Exam: Normal inspection. Non-tender. Normal alignment Pulmonary/Respiratory: Chest non-tender. Clear bilateral breath sounds Cardiovascular/Chest: Regular rate and rhythm. No murmurs. No JVD. Peripheral Pulses: 2+ Radial (R). 2+ Radial (L). 2+ Pedal (R). 2+ Pedal (L) Abdominal Exam: Normal bowel sounds. Soft. Nontender. No hepatospenomegaly. No masses Ankle Exam: Negative ankle edema Lower extremities: Negative lower extremity edema Neuro/Mental Status: A&O x4. Coherent Thoughts/Psych: Normal thought pattern. Appropriate mood and affect. Good judgement and insight Appearance: In no acute distress Skin Exam: Normal inspection. Normal color. Warm. Dry laboratory and microbiology Laboratory Tests 07/31/24 06:06 Test 07/31/24 06:06 Range/Units Serum Glucose 74 74-106 mg/dL Problem List/Assessment/Plan Problem List/Assessment/Plan Hypertensive urgency Ruled out CVA Diabetes mellitus - uncontrolled (hemoglobin A1c above 14%) Simple hyperglycemia [place] hemodynamically mediated on chronic renal failure Nephrotic range proteinuria (7.4 g/day) probably secondary to uncontrolled diabetes and hypertension Left hydronephrosis Vitamin-D deficiency Non adherence Dyslipidemia History of CVA Plan: CT abdomen and pelvis:Duplicated left renal collecting system as per urology: NM renal scan with lasix washout Patient was not on any home medication for four months. Initiated aspirin, atorvastatin Completed head CT which showed no intracranial pathology (old chronic infarct) Completed echocardiogram: Concentric LVH, dilation of sinuses of Valsalva, LVEF 50%, normal RV function Currently on antihypertensive medication (scheduled lisinopril, metoprolol and nifedipine, p.r.n. clonidine) Nephrology on board recommend diabetic and hypertensive control, follow up as outpatient. Replenish vitamin-D Indicated Mccall catheter, but patient refused since she has no problems urinating. Ordered bladder scan which showed 100 mm. Urology was consulted for left hydronephrosis Patient on moderate insulin sliding scale for simple hyperglycemia, added Lantus 15 units bid.. Monitor glycemia every 4 hours. Patient will need insulin as outpatient Goals of care discussed with patient for over 18 minutes: Full code status Discussed plan with Dr. Medina, patient and nurses Plan discussed with: Patient, Other (RN) My Orders My Orders Orders - SHELLY TUCKER RESIDENT Procedure Category Date Status Time Ct Ab Pel Wo Con-No CT 07/31/24 Resulted Oral Or Iv 08:17 Dietary Evaluation Review Recommendations by RD: Dietary education by RD Comments: 1) Continue to encourage optimal PO intake 2) Refer to outpatient RD/[facility] for diabetes education 3) Consider referal to endocrinology 4) Follow-up with nephrology and urology 4) Continue to monitor I&O, labs, and skin integrity Expected Outcomes/Goals: 1) appetite and labs to improve 2) f/u in 3-5 days SHELLY TUCKER RESIDENT Jul 31, 2024 13:05
[2024-08-01] VITALS (8 sets, daily range): BP systolic 124–177; BP diastolic 69–97; PULSE 62–84; RESP 16–20; TEMP 98.1–98.6; O2SAT 94–100
[2024-08-01] MEDS: INSULIN LISPRO (HUMAN) 100 UNITS/ML ML SC SCH (11:30)
--- NOTE | 2024-08-01 11:31 | DVHPN2 ---
Progress Note Date Seen: Aug 01, 2024 Medical Necessity Reason Pt with a Central, PICC or Fol: No Subjective Patient reports: No new complaints Other Systems: Patient seen and examined by myself today in follow-up Objective vital signs Vital Sign Date Time Temp Pulse Resp B/P (MAP) Pulse Ox O2 Delivery O2 Flow Rate FiO2 08/01/24 10:34 81 164/83 (110) 98 08/01/24 09:00 98.6 16 98.6 07/31/24 20:00 Room Air* 0 21 Total Intake and Output 07/31/24 07/31/24 08/01/24 15:00 23:00 07:00 Intake Total 840 ml 875 ml Output Total 450 ml Balance 840 ml 425 ml medications Current Medications Medications Dose Ordered Sig/Gina Route Start Time Stop Time Status Last Admin Dose Admin Nifedipine 60 mg DAILY PO 07/28/24 10:00 08/01/24 09:56 60 MG Metoprolol Succinate 25 mg DAILY PO 07/28/24 10:00 08/01/24 09:56 25 MG Lisinopril 10 mg DAILY PO 07/28/24 10:00 Hold 07/29/24 08:14 10 MG Clonidine HCl 0.1 mg Q6HP PRN PO 07/27/24 20:45 07/31/24 12:04 0.1 MG Ondansetron HCl 4 mg Q4HP PRN IV 07/27/24 20:45 Acetaminophen 650 mg Q6HP PRN PO 07/27/24 20:45 07/30/24 21:45 650 MG Dextrose 50 ml UD PRN IV 07/27/24 23:45 Cancel Insulin Human Regular IQ4HR SC 07/28/24 16:00 Cancel Diagnostic Test (Pha) 1 strip IQ4HR 07/28/24 16:00 08/01/24 07:43 1 STRIP Insulin Human Regular IQ4HR SC 07/28/24 16:00 07/31/24 20:36 2 UNITS Dextrose 50 ml UD PRN IV 07/28/24 13:30 Aspirin 81 mg DAILY PO 07/29/24 10:00 08/01/24 09:53 81 MG Atorvastatin Calcium 80 mg HS PO 07/29/24 22:00 07/31/24 21:36 80 MG Ergocalciferol 50,000 unit Q7D PO 07/28/24 22:45 Insulin Glargine 15 units ONCE SC 08/01/24 22:00 UNV Insulin Human Lispro 5 units TIDAC SC 08/01/24 11:30 UNV Examination: LUNGS:Normal, CVS:Normal, MSK:Normal laboratory and microbiology Laboratory Tests 07/31/24 06:06 Test 07/31/24 06:06 Range/Units Serum Glucose 74 74-106 mg/dL Problem List/Assessment/Plan Problem List/Assessment/Plan Acute kidney injury superimposed Chronic Kidney Disease secondary hemodynamic mediated in the setting of hypertensive emergency+ obstructive component Left hydronephrosis on kidney ultrasound Hypertensive emergency Uncontrolled diabetes Hb A1c > 14 Nephrotic range proteinuria likely secondary to uncontrolled diabetes, UPCR 7 Anemia of chronic kidney disease Vitamin-D deficiency Recommendations Kidney function continues to improve Increased urine output Urology consult for her left hydronephrosis Strict blood pressure and diabetes control Blood pressure control Ergocalciferol 80898 units p.o. q.week We will continue to follow up Plan discussed with: Patient Dietary Evaluation Review Recommendations by RD: Dietary education by RD Comments: 1) Continue to encourage optimal PO intake 2) Refer to outpatient RD/CD[facility] for diabetes education 3) Consider referal to endocrinology 4) Follow-up with nephrology and urology 4) Continue to monitor I&O, labs, and skin integrity Expected Outcomes/Goals: 1) appetite and labs to improve 2) f/u in 3-5 days VERONIKA BOUDREAUX MD Aug 01, 2024 11:31
[2024-08-01] MEDS: FUROSEMIDE 40 MG/4 ML VIAL IV ONE (11:45)
--- NOTE | 2024-08-01 13:23 | DVH ---
EXAM: NM NM MAG3 RENAL SCAN DATE OF SERVICE: 08/01/2024 10:41 AM ORDERING PHYSICIAN: SHELLY TUCKER REASON FOR EXAM: r/o obstruction TECHNIQUE: During the injection of radiopharmaceutical, posterior flow images of the kidneys were ac quired immediately at one frame per second for one minute, immediately followed by posterior imaging at 30 seconds per frame for 30 minutes. Approximately 20 minutes after the radiopharmaceutical admini stration, the indicated dose of lasix was administered. Regions of interest were drawn around the kid neys and time activity curves were generated. Differential function was calculated. COMPARISON: None FINDINGS: Blood flow images demonstrate prompt and symmetric flow to both kidneys with no focal defects. Functional images demonstrate a cortical transit time ([id number]) of 5.5 on the right and 7.5 on t he left (normal is < 6 minutes). There is mild spontaneous excretion from the kidneys. Differential function (uptake %) is 57.0 % by the right kidney and 43.0 % by the left kidney. After Lasix administration, there was adequate and prompt excretion from both collecting systems. The post-Lasix half-emptying time (diuretic T1/2) was 5.5 minutes on the right and 9.5 minutes on the le ft, which is within normal limits. IMPRESSION: 1. Unremarkable perfusion and function of both kidneys with no evidence of obstruction. 2. Differential renal function (uptake percent) of 57 % by the right kidney and 43 % by the left.
[2024-08-01] MEDS: ERGOCALCIFEROL 50,000 UNIT(1.25MG) CAP PO SCH (16:19)
--- NOTE | 2024-08-01 16:45 | DVHPNRES ---
Progress Note Date Seen: Aug 01, 2024 Resident Creating Document: SHELLY TUCKER RESIDENT Medical Necessity Reason Pt with a Central, PICC or Fol: No Subjective Patient reports: No new complaints Changes from previous H/P or p: No Changes Review of Systems: HEENT:Normal, CVS:Normal, RESPIRATORY:Normal, GI:Normal, :Normal, NEURO:Normal Objective vital signs Vital Sign Date Time Temp Pulse Resp B/P (MAP) Pulse Ox O2 Delivery O2 Flow Rate FiO2 08/01/24 11:45 164/83 08/01/24 10:34 81 98 08/01/24 09:00 98.6 16 98.6 08/01/24 08:00 Room Air* 0 21 Total Intake and Output 07/31/24 07/31/24 08/01/24 15:00 23:00 07:00 Intake Total 840 ml 875 ml Output Total 450 ml Balance 840 ml 425 ml medications Current Medications Medications Dose Ordered Sig/Gina Route Start Time Stop Time Status Last Admin Dose Admin Nifedipine 60 mg DAILY PO 07/28/24 10:00 08/01/24 09:56 60 MG Metoprolol Succinate 25 mg DAILY PO 07/28/24 10:00 08/01/24 09:56 25 MG Lisinopril 10 mg DAILY PO 07/28/24 10:00 Hold 07/29/24 08:14 10 MG Clonidine HCl 0.1 mg Q6HP PRN PO 07/27/24 20:45 07/31/24 12:04 0.1 MG Ondansetron HCl 4 mg Q4HP PRN IV 07/27/24 20:45 Acetaminophen 650 mg Q6HP PRN PO 07/27/24 20:45 07/30/24 21:45 650 MG Dextrose 50 ml UD PRN IV 07/27/24 23:45 Cancel Insulin Human Regular IQ4HR SC 07/28/24 16:00 Cancel Diagnostic Test (Pha) 1 strip IQ4HR 07/28/24 16:00 08/01/24 16:19 1 STRIP Insulin Human Regular IQ4HR SC 07/28/24 16:00 08/01/24 16:19 9 UNITS Dextrose 50 ml UD PRN IV 07/28/24 13:30 Aspirin 81 mg DAILY PO 07/29/24 10:00 08/01/24 09:53 81 MG Atorvastatin Calcium 80 mg HS PO 07/29/24 22:00 07/31/24 21:36 80 MG Insulin Glargine 15 units ONCE SC 08/01/24 22:00 UNV Insulin Human Lispro 5 units TIDAC SC 08/01/24 11:30 UNV Ergocalciferol 50,000 unit Q7D PO 08/01/24 15:15 08/01/24 16:19 50,000 UNIT Examination General Appearance: Cooperative. Well developed. Well nourished. NAD Head Exam: Normal inspection Neck Exam: Normal inspection. Non-tender. Normal alignment Pulmonary/Respiratory: Chest non-tender. Clear bilateral breath sounds Cardiovascular/Chest: Regular rate and rhythm. No murmurs. No JVD. Peripheral Pulses: 2+ Radial (R). 2+ Radial (L). 2+ Pedal (R). 2+ Pedal (L) Abdominal Exam: Normal bowel sounds. Soft. Nontender. No hepatospenomegaly. No masses Ankle Exam: Negative ankle edema Lower extremities: Negative lower extremity edema Neuro/Mental Status: A&O x4. Coherent Thoughts/Psych: Normal thought pattern. Appropriate mood and affect. Good judgement and insight Appearance: In no acute distress Skin Exam: Normal inspection. Normal color. Warm. Dry laboratory and microbiology Laboratory Tests 07/31/24 06:06 Test 07/31/24 06:06 Range/Units Serum Glucose 74 74-106 mg/dL Problem List/Assessment/Plan Problem List/Assessment/Plan Hypertensive urgency Ruled out CVA Diabetes mellitus - uncontrolled (hemoglobin A1c above 14%) Simple hyperglycemia LANDEN hemodynamically mediated on chronic renal failure Nephrotic range proteinuria (7.4 g/day) probably secondary to uncontrolled diabetes and hypertension Left hydronephrosis Vitamin-D deficiency Non adherence Dyslipidemia History of CVA Plan: CT abdomen and pelvis:Duplicated left renal collecting system Nuclear medicine renal scan with Lasix washout: Unremarkable perfusion and function of both kidney with no evidence of obstruction.Differential renal function (uptake percent) of 57 % by the right kidney and 43 % by the left. Basal bolus regimen of insulin: Lantus 15 units once daily, 5 of lispro before each meal. Patient was not on any home medication for four months. Initiated aspirin, atorvastatin Completed head CT which showed no intracranial pathology (old chronic infarct) Completed echocardiogram: Concentric LVH, dilation of sinuses of Valsalva, LVEF 50%, normal RV function Currently on antihypertensive medication (scheduled lisinopril, metoprolol and nifedipine, p.r.n. clonidine) Nephrology on board recommend diabetic and hypertensive control, follow up as outpatient. Replenish vitamin-D Indicated Mccall catheter, but patient refused since she has no problems urinating. Ordered bladder scan which showed 100 mm. Urology was consulted for left hydronephrosis Patient on moderate insulin sliding scale for simple hyperglycemia, added Lantus 15 units bid.. Monitor glycemia every 4 hours. Patient will need insulin as outpatient Goals of care discussed with patient for over 18 minutes: Full code status Discussed plan with Dr. Medina, patient and nurses Plan discussed with: Patient, Other (RN) My Orders My Orders Orders - SHELLY TUCKER RESIDENT Procedure Category Date Status Time Insulin Lantus PHA 08/01/24 Logged (Glargine) (Lantus) 22:00 Insulin Lispro PHA 08/01/24 Logged (Human) (Humalog) 11:30 Discontinue Tele JOCY 08/01/24 In Process 11:32 Transfer Orders XFER 08/01/24 Transmitted 11:32 *Rn Project/Production Manager Imaging REFER 08/01/24 Transmitted Referral 15:03 Ergocalciferol PHA 08/01/24 In Process (Vitamin D 50,000 15:15 Dietary Evaluation Review Recommendations by RD: Dietary education by RD Comments: 1) Continue to encourage optimal PO intake 2) Refer to outpatient RD/[facility] for diabetes education 3) Consider referal to endocrinology 4) Follow-up with nephrology and urology 4) Continue to monitor I&O, labs, and skin integrity Expected Outcomes/Goals: 1) appetite and labs to improve 2) f/u in 3-5 days Date of Service: Aug 01, 2024 Billing Provider: ANANDA RUIZ MD Common Visit Codes: [id number] INP/OBS CARE(HIGH) SHELLY TUCKER RESIDENT Aug 01, 2024 16:45 ANANDA RUIZ MD Aug 01, 2024 18:33
[2024-08-01] MEDS: INSULIN LANTUS (GLARGINE) 1 /0.01ml (100units/ml) SC SCH (22:16)
[2024-08-01] MEDS ORDERED: DEXTROSE (50%) 50ML SYRG IV PRN (22:45)
[2024-08-02] MEDS: ACCU-CHEK COMFORT CURVE STRIP VI SCH (00:25)
[2024-08-02 01:00] VITALS: BP 134/76; PULSE 74; RESP 17; TEMP 98; O2SAT 98
[2024-08-02 05:00] VITALS: BP 138/73; PULSE 74; RESP 16; TEMP 98; O2SAT 100
[2024-08-02 07:58] LABS: Basophils # (auto) 0.1 10 ^3/uL (0-0.2); Basophils % (auto) 1.2 % (0.0-2.0); Eosinophils # (auto) 0.2 10 ^3/uL (0-0.8); Eosinophils % (auto) 2.6 % (0.0-7.0); Hematocrit 32.9 % (36.0-46.0); Hemoglobin 11.4 g/dL (12.2-16.2); Lymphocytes # (auto) 1.7 10 ^3/uL (0.4-5.4); Lymphocytes % (auto) 26.8 % (10.0-50.0); Mean Corpuscular Hemoglobin 30.4 pg (28.0-32.0); Mean Corpuscular Hgb Conc. 34.7 g/dL (32.0-36.0); Mean Corpuscular Volume 87.7 fL (80.0-100.0); Monocytes # (auto) 0.6 10 ^3/uL (0-1.3); Monocytes % (auto) 9.5 % (0.0-12.0); Neutrophils # (auto) 3.7 10 ^3/uL (1.6-8.6); Neutrophils % (auto) 59.9 % (37.0-80.0); Nucleated Red Blood Cells % 0.1 %; Platelet Count (auto) 296 10^3/uL (140-450); Red Blood Cells 3.75 10^6/uL (4.0-5.20); Red Cell Distribution Width 12.9 % (11.8-14.3); White Blood Cell 6.2 10^3/uL (4.4-10.8)
[2024-08-02 08:00] VITALS: RESP 18; O2SAT 97
[2024-08-02 08:02] LABS: Anion Gap 9 (5-15); Carbon Dioxide 27 mmol/L (20-31); Chloride 104 mmol/L (98-107); Sodium 140 mmol/L (136-145)
[2024-08-02 08:03] LABS: Calcium 9.2 mg/dL (8.7-10.4)
[2024-08-02 08:07] LABS: Glucose 112 mg/dL (74-106)
[2024-08-02 08:08] LABS: BUN/Creatinine Ratio 21.2 (10.0-20.0)
[2024-08-02 08:10] LABS: Blood Urea Nitrogen 41 mg/dL (9-23)
[2024-08-02 08:50] VITALS: BP 135/74; PULSE 77; RESP 16; TEMP 98.5; O2SAT 99
[2024-08-02] MEDS ORDERED: INSU100I74 SC (10:20)
[2024-08-02] MEDS ORDERED: [UNRECOGNIZED DRUG - CODE] XX (10:20)
[2024-08-02] MEDS ORDERED: LISI-275 PO (10:20)
[2024-08-02] MEDS ORDERED: BLOO1KIT60 XX (10:20)
[2024-08-02] MEDS ORDERED: METO-6 PO (10:20)
[2024-08-02] MEDS ORDERED: ATOR20TA50 PO (10:20)
[2024-08-02] MEDS ORDERED: ASPI-325 PO (10:20)
[2024-08-02] MEDS ORDERED: NIFE1TAB31 PO (10:20)
[2024-08-02] MEDS ORDERED: INSU100I4 SC (10:25)
--- NOTE | 2024-08-02 10:37 | DVHDSRES ---
Discharge Summary Date of Admission Resident Creating Document: SHELLY TUCKER RESIDENT Jul 27, 2024 at 19:53 Date of Discharge: Aug 02, 2024 Admitting Diagnosis Hypertensive urgency Labs/Diagnostic Data: Laboratory Results Test 08/02/24 09:44 08/02/24 07:00 07/29/24 09:06 07/29/24 05:56 POC Glucose 265 mg/dl (70-106) White Blood Count 6.2 10^3/uL (4.4-10.8) Red Blood Count 3.75 10^6/uL (4.0-5.20) Hemoglobin 11.4 g/dL (12.2-16.2) Hematocrit 32.9 % (36.0-46.0) Mean Corpuscular Volume 87.7 fL (80.0-100.0) Mean Corpuscular Hemoglobin 30.4 pg (28.0-32.0) Mean Corpuscular Hemoglobin Concent 34.7 g/dL (32.0-36.0) Red Cell Distribution Width 12.9 % (11.8-14.3) Platelet Count 296 10^3/uL (140-450) Mean Platelet Volume 6.5 fL (6.9-10.8) Neutrophils (%) (Auto) 59.9 % (37.0-80.0) Lymphocytes (%) (Auto) 26.8 % (10.0-50.0) Monocytes (%) (Auto) 9.5 % (0.0-12.0) Eosinophils (%) (Auto) 2.6 % (0.0-7.0) Basophils (%) (Auto) 1.2 % (0.0-2.0) Neutrophils # (Auto) 3.7 10 ^3/uL (1.6-8.6) Lymphocytes # (Auto) 1.7 10 ^3/uL (0.4-5.4) Monocytes # (Auto) 0.6 10 ^3/uL (0-1.3) Eosinophils # (Auto) 0.2 10 ^3/uL (0-0.8) Basophils # (Auto) 0.1 10 ^3/uL (0-0.2) Nucleated Red Blood Cells 0.1 % Sodium Level 140 mmol/L (136-145) Potassium Level 4.0 mmol/L (3.5-5.1) Chloride Level 104 mmol/L (98-107) Carbon Dioxide Level 27 mmol/L (20-31) Anion Gap 9 (5-15) Blood Urea Nitrogen 41 mg/dL (9-23) Creatinine 1.93 mg/dL (0.550-1.02) Glomerular Filtration Rate Calc 29 mL/min (>90) BUN/Creatinine Ratio 21.2 (10.0-20.0) Serum Glucose 112 mg/dL (74-106) Calcium Level 9.2 mg/dL (8.7-10.4) Urine Creatinine 46.23 mg/dL (30.0-125.0) Urine Microalbumin 1680.0 mg/L (<30.0) Urine Sodium 35 mmol/L (40-220) Urine Total Protein 342.1 mg/dL (1-14) Urine Opiates Screen Neg (NEGATIVE) Urine Fentanyl Screen Neg (NEGATIVE) Urine Barbiturates Screen Neg (NEGATIVE) Urine Phencyclidine Screen Neg (NEGATIVE) Urine Amphetamines Screen Neg (NEGATIVE) Urine Benzodiazepines Screen Neg (NEGATIVE) Urine Cocaine Screen Neg (NEGATIVE) Urine Cannabinoids Screen Neg (NEGATIVE) Total Bilirubin 0.2 mg/dL (0.2-1.0) Aspartate Amino Transferase (AST) 9 U/L (13-40) Alanine Aminotransferase (ALT) 13 U/L (7-40) Alkaline Phosphatase 129 U/L (46-116) Total Protein 5.2 g/dL (5.7-8.2) Albumin 2.9 g/dL (3.2-4.8) Test 07/28/24 13:55 07/28/24 13:29 07/27/24 18:57 07/27/24 16:10 Blood Gas Specimen Type Arterial Blood Gas Sample Site Right radial Blood Gas Patient Temperature 37.0 Arterial Blood Date Drawn [id number] Arterial Blood pH 7.456 (7.350-7.450) Arterial Blood Partial Pressure CO2 38.8 mmHg (32.0-45.0) Arterial Blood Partial Pressure O2 79.6 mmHg (83.0-108.0) Arterial Blood HCO3 26.7 mmol/L (21.0-28.0) Arterial Blood Oxygen Saturation 95.4 % (94.0-98.0) Arterial Blood Base Excess 2.8 mmol/L (-2.0-3.0) Arterial Blood Oxyhemoglobin 94.2 % (94.0-98.0) Arterial Blood Carboxyhemoglobin 0.7 % (0.5-1.5) Arterial Blood Methemoglobin 0.6 % (0.0-1.5) Escobar Test Yes Blood Gas Total Hemoglobin 12.80 g/dL (12.0-16.0) Blood Gas Modality Room air FiO2 % 21.0 Prothrombin Time 9.9 sec (9.3-11.8) Prothrombin Time INR 0.93 (0.9-1.15) Activated Partial Thromboplast Time 22.0 SEC (24.5-34.5) Hemoglobin A1c > 14.0 % A1C (<5.7) Lactic Acid Level 2.0 mmol/L (0.4-2.0) Phosphorus Level 3.6 mg/dL (2.4-5.1) Magnesium Level 2.2 mg/dL (1.6-2.6) Lipase 42 U/L (12-53) Vitamin B12 Level 672 pg/mL (211-911) Vitamin D 25-Hydroxy 11.0 ng/mL (30.0-100) Troponin I High Sensitivity 20 ng/L (</=34) Triglycerides Level 624 mg/dL (< 150) Cholesterol Level 322 mg/dL (< 200) LDL Cholesterol mg/dL (< 100) HDL Cholesterol 47 mg/dL (40-59) Thyroid Stimulating Hormone (TSH) 1.83 uIU/mL (0.55-4.78) Urine Color Colorless (Yellow) Urine Clarity Clear (Clear) Urine pH 7.0 (5.0-9.0) Urine Specific Louise 1.014 (1.001-1.035) Urine Protein 2+ (Negative) Urine Ketones Negative (Negative) Urine Blood Negative /uL (Negative) Urine Nitrite Negative (Negative) Urine Bilirubin Negative (Negative) Urine Urobilinogen Normal mg/dL (Negative) Urine Leukocyte Esterase Negative /uL (Negative) Urine RBC <1 /hpf (0 - 4) Urine Microscopic WBC 1 /HPF (0-5) Urine Squamous Epithelial Cells None seen /hpf (<5) Urine Bacteria None seen /hpf (None Seen) Urine Glucose 4+ mg/dL (Normal) Other Laboratory Tests 08/02/24 07:00 Brief Hx & Hospital Course: Katie Arguelles is a 58-year-old female patient who presents to the ED with chief complaint of constant of oppressive right-sided headache associated with whole-body right-sided pain which started two days before her admission. Patient reports elevated blood pressure readings her blood pressure was elevated in the 200s prior to arrival to the emergency department. Patient was treated with antihypertensive medication including lisinopril, metoprolol and nifedipine and p.r.n. clonidine as needed. CT head showed no intracranial pathology. Given patient's elevated kidney function nephrology was consultation was done and patient is LANDEN was likely hemodynamically mediated with chronic kidney disease. Patient underwent CT abdomen pelvis which showed duplicated renal collecting system therefore patient underwent nuclear medicine of renal scan with Lasix washout which shows no acute obstruction. Patient also uncontrolled diabetes mellitus with HGB A1c greater than 14%, patient was treated with basal bolus Lantus 15 units every night with lispro 5 units before each meal. Patient advised on diabetic controlled, strict consistent carbohydrate diet, consistent follow with primary care physician for follow of chronic condition. Patient was strictly advised on diabetic education including regular diet control, weight loss, appropriate use of insulin, and advised to not take insulin if blood sugar is less than 90 mg per dL. Patient understood discharge plan and agreed with the same. Patient advised to come to the hospital or urgent care if symptom recurs or worsens. Patient advised to follow up in discharge clinic as well. Condition at Discharge: Stable Final Diagnosis/Problems List Hypertensive urgency Ruled out CVA Diabetes mellitus - uncontrolled (hemoglobin A1c above 14%) Simple hyperglycemia LANDEN hemodynamically mediated on chronic renal failure Nephrotic range proteinuria (7.4 g/day) probably secondary to uncontrolled diabetes and hypertension Left hydronephrosis Vitamin-D deficiency Non adherence Dyslipidemia History of CVA Discharge Disposition: Home Discharge Instruct/Medications Diet: Consistent carbohydrate Activity: No Restrictions, As Tolerated Follow Up/Referral: -follow up with PCP in 1 week Medications: - see prescription Discharge Statement: "Patient was advised to return to the ER or call 911 if any headaches, dizziness, shortness of breath, chest pain, abdominal pain, bleeding, fevers, or worsening of medical condition. Patient was counseled about treatment plan, medications, possible side effects, patientverbalized understanding. All questions were answered to the best of my ability. This discharge took greater then 30 minutes in planning, reviewing documentation, counseling the patient, and discussing with other team members." ASSESSMENT ASSESSMENT Assessment Hypertensive urgency Ruled out CVA Diabetes mellitus - uncontrolled (hemoglobin A1c above 14%) Simple hyperglycemia LANDEN hemodynamically mediated on chronic renal failure Nephrotic range proteinuria (7.4 g/day) probably secondary to uncontrolled diabetes and hypertension Left hydronephrosis Vitamin-D deficiency Non adherence Dyslipidemia History of CVA Date of Service: Aug 02, 2024 Billing Provider: ANANDA RUIZ MD Common Visit Codes: 84031-FDB/[id number] DISCH DAY >30min SHELLY TUCKER RESIDENT Aug 02, 2024 10:37 ANANDA RUIZ MD Aug 02, 2024 17:14
--- NOTE | 2024-08-02 11:07 | DVHPN2 ---
Progress Note Date Seen: Aug 02, 2024 Medical Necessity Reason Pt with a Central, PICC or Fol: No Subjective Patient reports: No new complaints Other Systems: Patient seen and examined by myself today in follow-up Objective vital signs Vital Sign Date Time Temp Pulse Resp B/P (MAP) Pulse Ox O2 Delivery O2 Flow Rate FiO2 08/02/24 09:39 77 135/74 08/02/24 08:50 98.5 16 99 98.5 08/02/24 08:00 Room Air* 0 21 Total Intake and Output 08/01/24 08/01/24 08/02/24 15:00 23:00 07:00 Intake Total 640 ml 699 ml 425 ml Balance 640 ml 699 ml 425 ml medications Current Medications Medications Dose Ordered Sig/Gina Route Start Time Stop Time Status Last Admin Dose Admin Nifedipine 60 mg DAILY PO 07/28/24 10:00 08/02/24 09:39 60 MG Metoprolol Succinate 25 mg DAILY PO 07/28/24 10:00 08/02/24 09:39 25 MG Lisinopril 10 mg DAILY PO 07/28/24 10:00 Hold 07/29/24 08:14 10 MG Clonidine HCl 0.1 mg Q6HP PRN PO 07/27/24 20:45 08/01/24 19:51 0.1 MG Ondansetron HCl 4 mg Q4HP PRN IV 07/27/24 20:45 Acetaminophen 650 mg Q6HP PRN PO 07/27/24 20:45 07/30/24 21:45 650 MG Dextrose 50 ml UD PRN IV 07/27/24 23:45 Cancel Insulin Human Regular IQ4HR SC 07/28/24 16:00 Cancel Diagnostic Test (Pha) 1 strip IQ4HR 07/28/24 16:00 08/02/24 08:00 1 STRIP Dextrose 50 ml UD PRN IV 07/28/24 13:30 Aspirin 81 mg DAILY PO 07/29/24 10:00 08/02/24 09:38 81 MG Atorvastatin Calcium 80 mg HS PO 07/29/24 22:00 08/01/24 22:02 80 MG Ergocalciferol 50,000 unit Q7D PO 08/01/24 15:15 08/01/24 16:19 50,000 UNIT Diagnostic Test (Pha) 1 strip IQ4HR 08/02/24 00:00 4/9/25 04:11 1 STRIP Dextrose 50 ml UD PRN IV 08/01/24 22:45 Examination: LUNGS:Normal, CVS:Normal, MSK:Normal laboratory and microbiology Laboratory Tests 08/02/24 07:00 Test 08/02/24 07:00 Range/Units Serum Glucose 112 H 74-106 mg/dL Problem List/Assessment/Plan Problem List/Assessment/Plan Acute kidney injury superimposed Chronic Kidney Disease secondary hemodynamic mediated in the setting of hypertensive emergency+ obstructive component Left hydronephrosis on kidney ultrasound Hypertensive emergency Uncontrolled diabetes Hb A1c > 14 Nephrotic range proteinuria likely secondary to uncontrolled diabetes, UPCR 7 Anemia of chronic kidney disease Vitamin-D deficiency Recommendations Kidney function continues to improve Increased urine output Urology consult for her left hydronephrosis Strict blood pressure and diabetes control Blood pressure control Ergocalciferol 72807 units p.o. q.week We will continue to follow up Plan discussed with: Patient Dietary Evaluation Review Recommendations by RD: Dietary education by RD Comments: 1) Continue to encourage optimal PO intake 2) Refer to outpatient RD/[facility] for diabetes education 3) Consider referal to endocrinology 4) Follow-up with nephrology and urology 4) Continue to monitor I&O, labs, and skin integrity Expected Outcomes/Goals: 1) appetite and labs to improve 2) f/u in 3-5 days VERONIKA BOUDREAUX MD Aug 02, 2024 11:07
[2024-08-02 12:43] VITALS: BP 135/74; PULSE 77; TEMP 36.9
== END 2024-08-02 14:00 | disposition home or self-care (01) | DRG 199 ==
LOC: ER 15:30 → EDBD 15:30 → OVERFLOW 19:53 → WEST WING 07-28 17:10 → TELE-WESTW 07-30 09:11 → WEST WING 08-01 11:56
PROVIDERS: ADMIT Internal Medicine; ATTEND Internal Medicine
DX: I16.0 Hypertensive urgency (principal); N17.0 Acute kidney failure with tubular necrosis; E11.22 Type 2 diabetes mellitus with diabetic chronic kidney disease; I16.1 Hypertensive emergency; D63.1 Anemia in chronic kidney disease; N13.6 Pyonephrosis; N18.9 Chronic kidney disease, unspecified; E78.5 Hyperlipidemia, unspecified; I12.9 Hypertensive chronic kidney disease with stage 1 through stage 4 chronic kidney disease, or unspecified chronic kidney disease; E11.65 Type 2 diabetes mellitus with hyperglycemia; K21.9 Gastro-esophageal reflux disease without esophagitis; E55.9 Vitamin D deficiency, unspecified; Z79.4 Long term (current) use of insulin; Z79.84 Long term (current) use of oral hypoglycemic drugs; Z79.899 Other long term (current) drug therapy; Z90.710 Acquired absence of both cervix and uterus; Z90.49 Acquired absence of other specified parts of digestive tract; Z86.73 Personal history of transient ischemic attack (TIA), and cerebral infarction without residual deficits; Z83.3 Family history of diabetes mellitus; Z82.3 Family history of stroke
CPT/HCPCS: 36415; 36600; 70450; 71045; 73130; 74176; 76775; 78707; 80048; 80053; 80061; 80307; 81001; 82043; 82306; 82570; 82607; 82805; 82962; 83036; 83605; 83690; 83735; 84100; 84156; 84300; 84443; 84484; 85025; 85610; 85730; 93306; 96374; 96375; G0378; J1815